=== PATIENT | female | born 1940 | race Caucasian/White ===

== ENCOUNTER 2017-08-20 16:41 | Inpatient (IN) | payer OTHER ==
[~2017-08-20] VITALS: Ht 175.3 cm; Wt 62.6 kg
[~2017-08-20 16:41] MED LIST: ASCA500; ASPEC81; CMD3; CMP10; ERGO1CAP35; FOLIC ACID; FRRS300; METR-163; MULT-506; PANT40TA; POTA20TA16; RMR15; THIAMINE; [UNRECOGNIZED DRUG - OTHER]
[2017-08-20] MEDS ORDERED: ONDANSETRON INJ 2 MG/ML 2 ML VIAL IV STA ×2 (16:54→18:53)
[2017-08-20] MEDS ORDERED: DIPHTHERIA/TETANUS/PERTUSSIS 0.5 ML SYR/VIAL IM. ONE (17:00)
--- NOTE | 2017-08-20 17:00 | EMERGENCY ROOM VISIT NOTE ---
History Report prepared by Josh: Matias Flores Under the Supervision of: Dr. Doron Jimenez D.O. 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 The patient states that she fell suddenly onto her left side just prior to arrival. Her family reports that they found her on the floor today and brought her in to the ED. She denies any loss of consciousness or head injury. She complains of left wrist pain, left hip pain, and left leg pain that worsens with movement. She denies any headache, neck pain, abdominal pain, chest pain, and SOB. Her last dietary intake was at 5 hours ago and denies use of any blood thinners. The patient has a history of DVT, Celiac disease, and tobacco use. Per her children, the patient has increasing bouts of confusion. 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 Review of Systems See HPI for pertinent positives & negatives. A total of 10 systems reviewed and were otherwise negative. Past Medical & Surgical Medical Problems: (1) Celiac disease (2) DVT (deep venous thrombosis) (3) Multiple fractures Family History No pertinent family history stated. Social History Smoking Status: Current Every Day Smoker Marital Status: Housing Status: lives with family Occupation Status: retired Current/Historical Medications Scheduled Aspirin (Aspirin), 325 MG PO DAILY Atorvastatin (Lipitor), 20 MG PO HS Cholecalciferol (Vitamin D3), 1,000 INTER.UNIT PO DAILY Diphenhydramine Hcl (Diphenhydramine Hcl), 25 MG PO HS Folic Acid (Folic Acid), 800 MCG PO DAILY Mirtazapine (Remeron), 30 MG PO HS Multiple Vitamins W/ Minerals (Centrum Silver 50+Women), 1 TAB PO DAILY Omeprazole (Prilosec), 40 MG PO BID Potassium Ext Rel (Klor-Con), 20 MEQ PO DAILY Scheduled PRN Ipratropium-Albuterol (Combivent Respimat), 1 PUFF INH QID PRN for Shortness of Breath Allergies Coded Allergies: Penicillins (Verified Allergy, Mild, 10/06/09) Lactose (Verified Allergy, Unknown, 10/06/09) Physical Exam Vital Signs Date Time Temp Pulse Resp B/P (MAP) Pulse Ox O2 Delivery O2 Flow Rate FiO2 08/20/17 20:18 93 18 123/65 95 08/20/17 17:15 101 08/20/17 17:15 36.6 101 20 119/63 95 Room Air Physical Exam GENERAL: Patient is awake, alert, anxious, uncomfortable, and appears to be in moderate pain. EYES: The conjunctivae are clear. The pupils are round and reactive. EARS, NOSE, MOUTH AND THROAT: The nose is without any evidence of any deformity. Mucous membranes are dry tongue is midline. Small area of bruising on right forehead. NECK: The neck is nontender and supple. RESPIRATORY: Diminished lung sounds throughout, with scattered rhonchi, no tachypnea or conversational dyspnea appreciated CARDIOVASCULAR: Regular rate and rhythm noted there no murmurs rubs or gallops normal S1 normal S2 GASTROINTESTINAL: The abdomen is soft. Bowel sounds are present in all quadrants. Abdomen is nontender BACK: No midline tenderness or or step-off noted range of motion in flexion extension as well as rotation no signs of muscle spasm noted MUSCULOSKELETAL/EXTREMITIES: Deformity and ecchymosis of right wrist. No tenderness of right elbow. Tenderness and ecchymosis of anterior right lower leg with abrasion of right lower leg. Pain with range of motion of right hip. No shortening was noted. SKIN: There is no obvious evidence of any rash. There are no petechiae, pallor or cyanosis noted. NEUROLOGIC: Patient is awake awake alert and oriented x3 Medical Decision & Procedures ER Provider Diagnostic Interpretation: Radiology results as stated below per my review and radiologist interpretation: CERVICAL SPINE W/O FINDINGS: Middle Stitcher topogram: Unremarkable. Normal cervical lordosis. Mild vertebral body height loss of C5 and C6 likely degenerative in etiology. No acute fracture or subluxation. Multilevel degenerative changes with disc osteophyte complexes noted at C4-5 through 7. Bony spurring posteriorly at these levels. No significant osseous neural foraminal or spinal canal narrowing. Degenerative changes also noted at the atlantodental articulation. Limited intracranial evaluation within normal limits. Paraspinal soft tissues remarkable for atherosclerosis. Emphysema at the lung apices with a solid 6 mm nodule (series 4 image 76). IMPRESSION: 1. No acute osseous injury of the cervical spine. 2. Multilevel degenerative changes in the mid to lower cervical spine. 3. 6 mm solid nodule at the right apex. Follow-up per Amanda Society 2017 recommendations below. The report will be called/faxed according to standard departmental protocol. Please refer to below summary of Fleischner Society 2017 recommendations for follow-up of incidental CT nodules (Robert Trores et al. Guidelines for management of incidental pulmonary nodules detected on CT images: From the Fleischner Society 2017. Radiology 2017; 284: 228-243.) SOLID NODULES Single nodule; size < 6 mm * Low risk patients: No routine follow-up * High risk patients: Optional CT at 12 months Single nodule; size 6-8 mm * Low risk patients: CT at 6-12 months, then consider CT at 18-24 months * High risk patients: CT at 6-12 months, then at 18-24 months Single nodule; size > 8 mm * Either low or high risk patients: Considered CT at 3 months, PET/CT, or tissue sampling Multiple nodules; size < 6 mm * Low risk patients: No routine follow up * High risk patients: Optional CT at 12 months Multiple nodules; size 6-8 mm * Low risk patients: CT at 3-6 months, then consider CT at 18-24 months * High risk patients: CT at 3-6 months, then at 18-24 months Multiple nodules; size > 8 mm * Low risk patients: CT at 3-6 months, then consider at 18-24 months * High risk patients: CT at 3-6 months, then at 18-24 months Note: These guidelines apply to incidental nodules. These guidelines do not apply to patients younger than 35 years, immunocompromised patients, or patients with cancer. * Low risk patients: Minimal or absent history of smoking and/or other known risk factors * High risk patients: History of smoking, exposure to other carcinogens, emphysema, fibrosis, upper lobe location, family history of lung cancer, etc. * If a nodule up to 8 mm is partly solid or is ground glass, further follow-up is required after 24 months to exclude possible slow growing adenocarcinoma. SUBSOLID NODULES Single ground-glass nodule * Nodule size < 6 mm: No routine follow-up * Nodule size > or = 6 mm: CT at 6-12 months to confirm persistence, then CT every 2 years until 5 years Single part-solid nodule * Nodule size < 6 mm: No routine follow-up * Nodules size > or = 6 mm: CT at 3-6 months to confirm persistence. If unchanged and solid component remains < 6 mm, annual CT should be performed for 5 years Multiple nodules * Nodule size < 6 mm: CT at 3-6 months. If stable, consider CT at 2 and 4 years. * Nodules size > or = 6 mm: CT at 3-6 months. Subsequent management based on the most suspicious nodule(s) Electronically signed by: Luis Fernando Bess M.D. 08/20/2017 6:01 PM Dictated Date/Time: 08/20/2017 5:57 PM CHEST 2 VIEWS ROUTINE CLINICAL HISTORY: 77 years-old Female presenting with fall. TECHNIQUE: PA and lateral views of the chest were obtained. COMPARISON: 11/07/2015. FINDINGS: Scoliotic curvature of the spine limits evaluation. Atherosclerosis of aortic arch. Cardiac silhouette may be top normal in size or mildly enlarged. Nodular opacities in the left lung again noted. No large pleural effusion or pneumothorax effusion. Osteopenia suspected. Degenerative changes and scoliotic curvature of the spine. Degenerative changes of the acromioclavicular joints. Hiatal hernia suspected. IMPRESSION: 1. Persistent nodular opacities in the left lung. 2. Examination limited by scoliotic curvature resulting in malpositioning. Otherwise no evidence of acute cardiopulmonary disease. Electronically signed by: Luis Fernando Bess M.D. 08/20/2017 6:52 PM Dictated Date/Time: 08/20/2017 6:50 PM R TIBIA/FIBULA 2 VIEWS ROUTINE, R FEMUR 2 VIEWS ROUTINE FINDINGS: Right femur: Right hip joint congruent. Knee joint congruent. Osteopenia may be present. No acute fracture or malalignment. Degenerative changes of the knee including chondrocalcinosis. No knee joint effusion. Right lower leg: A few lucent lesions suggested in the medullary cavity of the tibia and fibula, indeterminate. No acute fracture or malalignment. Ankle mortise intact. Osteopenia suspected. IMPRESSION: 1. No acute osseous injury of the right femur right lower leg. 2. Questionable lucent lesions in the medullary cavity of the tibia and fibula. This raises concern for possible multiple myeloma, although the presence of osteopenia may be resulting in a heterogeneous appearance of bone marrow. Electronically signed by: Luis Fernando Bess M.D. 08/20/2017 6:54 PM Dictated Date/Time: 08/20/2017 6:52 PM HEAD WITHOUT CONTRAST (CT) CLINICAL HISTORY: 77 years-old Female with fakll. Acute head injury status post fall TECHNIQUE: Multiple axial CT images of the head were obtained without contrast. A dose lowering technique was utilized adhering to the principles of ALARA. CT DOSE: 990.25 mGy.cm COMPARISON: CT head 04/13/2006. FINDINGS: No acute intracranial hemorrhage, midline shift, intracranial mass, hydrocephalus, territorial ischemia or abnormal extra-axial collection. Mild to moderate atrophy with ex vacuo ventriculomegaly. Senescent calcifications of the left lentiform nucleus. Ill-defined areas of low-attenuation within the subcortical and periventricular white matter compatible with chronic microvascular ischemic changes, progressed from comparison. The calvarium is intact. The paranasal sinuses, mastoid air cells, and middle ear cavities are clear. IMPRESSION: 1. No acute intracranial abnormality or calvarial fracture. 2. Atrophy with chronic microvascular ischemic changes, progressed from comparison study 04/13/2006. The above report was generated using voice recognition software. It may contain grammatical, syntax or spelling errors. Electronically signed by: Neri Leo M.D. 08/20/2017 5:59 PM Dictated Date/Time: 08/20/2017 5:55 PM PELVIS 1 OR 2 VIEW ROUTINE CLINICAL HISTORY: 77 years-old Female presenting with fall. TECHNIQUE: Single frontal view of the pelvis was obtained. COMPARISON: None. FINDINGS: Osteopenia suspected. Pubic symphysis and sacral leg joints congruent. Hip joints congruent. No femoral neck fracture. Osseous irregularity of the superior right pubic ramus noted. Bony pelvis otherwise within normal limits. Degenerative changes of the lumbar spine. Marked stool burden. IMPRESSION: Osteopenia with possible fracture of the superior right pubic ramus. Electronically signed by: Luis Fernando Bess M.D. 08/20/2017 6:50 PM Dictated Date/Time: 08/20/2017 6:49 PM R TIBIA/FIBULA 2 VIEWS ROUTINE, R FEMUR 2 VIEWS ROUTINE CLINICAL HISTORY: 77 years-old Female presenting with fall. TECHNIQUE: Frontal and lateral views of the right femur and right lower leg were obtained. COMPARISON: None. FINDINGS: Right femur: Right hip joint congruent. Knee joint congruent. Osteopenia may be present. No acute fracture or malalignment. Degenerative changes of the knee including chondrocalcinosis. No knee joint effusion. Right lower leg: A few lucent lesions suggested in the medullary cavity of the tibia and fibula, indeterminate. No acute fracture or malalignment. Ankle mortise intact. Osteopenia suspected. IMPRESSION: 1. No acute osseous injury of the right femur right lower leg. 2. Questionable lucent lesions in the medullary cavity of the tibia and fibula. This raises concern for possible multiple myeloma, although the presence of osteopenia may be resulting in a heterogeneous appearance of bone marrow. Electronically signed by: Luis Fernando Bess M.D. 08/20/2017 6:54 PM Dictated Date/Time: 08/20/2017 6:52 PM R WRIST MIN 3 VIEWS ROUTINE CLINICAL HISTORY: 77 years-old Female presenting with fall. TECHNIQUE: Frontal, oblique, and lateral views of the right wrist were obtained. COMPARISON: None. FINDINGS: Mildly displaced transversely oriented fracture of the distal radial metaphysis without significant angulation. There is a millimeters of dorsal displacement of the distal fracture fragment and carpus. Radiocarpal articulations preserved, evidence of an extra-articular fracture. The ulnar styloid is not clearly visible, possibly fractured. The distal radial ulnar joints is not well assessed. Underlying osteopenia suspected. Diffuse soft tissue swelling. No subcutaneous gas. IMPRESSION: Displaced distal radial metaphyseal fracture without significant angulation. Suspected underlying osteopenia. Electronically signed by: Luis Fernando Bess M.D. 08/20/2017 6:56 PM Dictated Date/Time: 08/20/2017 6:54 PM Laboratory Results 08/20/17 17:25 Red Blood Count 4.57, Mean Corpuscular Volume 96.3, Mean Corpuscular Hemoglobin 32.6, Mean Corpuscular Hemoglobin Concent 33.9, Mean Platelet Volume 10.6, Neutrophils (%) (Auto) 86.8, Lymphocytes (%) (Auto) 4.7, Monocytes (%) (Auto) 7.8, Eosinophils (%) (Auto) 0.1, Basophils (%) (Auto) 0.2, Neutrophils # (Auto) 12.34, Lymphocytes # (Auto) 0.67, Monocytes # (Auto) 1.11, Eosinophils # (Auto) 0.01, Basophils # (Auto) 0.03 08/20/17 17:05 Test 08/20/17 17:05 08/20/17 17:25 08/20/17 19:41 Anion Gap 5.0 mmol/L (3-11) Est Creatinine Clear Calc Drug Dose 71.3 ml/min Estimated GFR () 100.3 Estimated GFR (Non- 86.5 BUN/Creatinine Ratio 22.2 (10-20) Calcium Level 9.5 mg/dl (8.5-10.1) Total Bilirubin 0.7 mg/dl (0.2-1) Direct Bilirubin 0.1 mg/dl (0-0.2) Aspartate Amino Transf (AST/SGOT) 17 U/L (15-37) Alanine Aminotransferase (ALT/SGPT) 20 U/L (12-78) Alkaline Phosphatase 53 U/L (45-117) Troponin I 0.640 ng/ml (0-0.045) Total Protein 7.1 gm/dl (6.4-8.2) Albumin 4.2 gm/dl (3.4-5.0) Lipase 234 U/L (73-393) White Blood Count 14.22 K/uL (4.8-10.8) Red Blood Count 4.57 M/uL (4.2-5.4) Hemoglobin 14.9 g/dL (12.0-16.0) Hematocrit 44.0 % (37-47) Mean Corpuscular Volume 96.3 fL (80-100) Mean Corpuscular Hemoglobin 32.6 pg (25-34) Mean Corpuscular Hemoglobin Concent 33.9 g/dl (32-36) Platelet Count 188 K/uL (130-400) Mean Platelet Volume 10.6 fL (7.4-10.4) Neutrophils (%) (Auto) 86.8 % Lymphocytes (%) (Auto) 4.7 % Monocytes (%) (Auto) 7.8 % Eosinophils (%) (Auto) 0.1 % Basophils (%) (Auto) 0.2 % Neutrophils # (Auto) 12.34 K/uL (1.4-6.5) Lymphocytes # (Auto) 0.67 K/uL (1.2-3.4) Monocytes # (Auto) 1.11 K/uL (0.11-0.59) Eosinophils # (Auto) 0.01 K/uL (0-0.5) Basophils # (Auto) 0.03 K/uL (0-0.2) RDW Standard Deviation 44.5 fL (36.4-46.3) RDW Coefficient of Variation 12.9 % (11.5-14.5) Immature Granulocyte % (Auto) 0.4 % Immature Granulocyte # (Auto) 0.06 K/uL (0.00-0.02) Prothrombin Time 10.2 SECONDS (9.0-12.0) Prothromb Time International Ratio 1.0 (0.9-1.1) Activated Partial Thromboplast Time 25.2 SECONDS (21.0-31.0) Partial Thromboplastin Ratio 1.0 Laboratory results per my review. Medications Administered Medications (Trade) Dose Ordered Sig/Mari Route Start Time Stop Time Status Last Admin Dose Admin Ondansetron HCl (Zofran Inj) 4 mg NOW STAT IV 08/20/17 16:54 08/20/17 16:57 DC 08/20/17 17:17 4 MG Diphtheria/ Pertussis/Tetanus Vacc (Adacel Inj) 0.5 ml ONCE ONCE IM. 08/20/17 17:00 08/20/17 17:01 DC 08/20/17 17:18 0.5 ML Morphine Sulfate (MoRPHine SULFATE INJ) 4 mg Q15M PRN IV 08/20/17 17:00 09/03/17 16:59 08/20/17 18:06 4 MG Ondansetron HCl (Zofran Inj) 4 mg NOW STAT IV 08/20/17 18:53 08/20/17 18:54 DC 08/20/17 19:01 4 MG ECG Indication: other (fall) Rate (beats per minute): 101 Rhythm: sinus tachycardia Findings: no ectopy, other (Poor r wave progression noted) Comparison ECG Date: 04/14/2006 Change: Poor R wave is new compared 04/14/2006 ED Course 164: The patient was evaluated in room A9. A complete history and physical examination were performed. 165: Zofran Inj 4 mg IV 1700: Morphine Sulfate Inj 4 mg IV, Adacel Inj .5 ml IM. 185: Zofran Inj 4mg IV. 1900: I discussed the patient's case with Dr. Falcon of [facility]. The patient will be evaluated for further management. 1908: I spoke with Dr. Hart of Orthopedics. He will look at the films and will come here to reduce if he feels it is necessary. 1922: Upon reevaluation, the patient is doing well. I discussed results and treatment plan with the patient. She verbalizes agreement and understanding. I spoke with Dr. Falcon of the [facility]. The patient will be evaluated for further management and care. Medical Decision Differential diagnosis: Etiologies such as fracture, dislocation, intra-abdominal, pneumothorax, intrathoracic , intracranial, neurologic, as well as other traumatic pathologies were entertained. fracture, dislocation, intra-abdominal, pneumothorax, pulmonary contusion, hemothorax, intracranial, neurologic,as well as others were deemed relatively unlikely. Nursing notes reviewed. Additional history is obtained from the patient's family members. The patient is a 77-year-old female who presented to the emergency department for an evaluation after fall. The patient was found on the floor by her family members. She had significant injury to the right upper extremity and also had pain with her right hip and was unable to stand. The patient had some degree of confusion and the family member state that this has been an ongoing problem for her. The patient was found to have a fracture of her right wrist as well as a pubic ramus fracture. The patient also had EKG changes of unknown chronicity. The patient was treated with IV pain medication IV antiemetics. On subsequent reevaluation she was significantly improved. I discussed her case with the on- call [facility] orthopedic physician. At this time I feel she may require reduction but also may require surgical intervention. She has a significant history of COPD and at this time I'm unsure if we can do a closed reduction with sedation in the emergency department. She was placed in a splint. At this time of also discussed her case with the on-call [facility] hospitalist group. They've agreed to evaluate the patient in the emergency department for further management and disposition. Medication Reconcilliation Current Medication List: was personally reviewed by me Blood Pressure Screening Patient's blood pressure: Normal blood pressure Blood pressure disposition: Did not require urgent referral Consults Time Called: 1855 Consulting Physician: Dr. Falcon - [facility] Returned Call: [address] Falcon of [facility]. The patient will be evaluated for further management and care. Additional Consults: Time Called: 1908 Consulted Physician: Dr. Hart - Orthopedics Returned Call: 1911 Additional Comments: I spoke with Dr. Hart of Orthopedics. He will look at the films and will come here to reduce if he feels it is necessary. Impression Primary Impression: Fall Additional Impressions: Colles' fracture of right radius Pelvic fracture Contusion of right leg Abnormal EKG Elevated troponin Scribe Attestation The scribe's documentation has been prepared under my direction and personally reviewed by me in its entirety. I confirm that the note above accurately reflects all work, treatment, procedures, and medical decision making performed by me. Departure Information Dispostion Being Evaluated By Hospitalist Referrals Mercedes Echevarria (PCP) Patient Instructions My [facility] Problem Qualifiers Primary Impression: Fall Encounter type: initial encounter Qualified Codes: W19.XXXA - Unspecified fall, initial encounter Additional Impressions: Colles' fracture of right radius Encounter type: initial encounter Fracture type: closed Qualified Codes: S52.531A - Colles' fracture of right radius, initial encounter for closed fracture Pelvic fracture Encounter type: initial encounter Pelvic bone location: pubis Sublocation of pubis: superior rim Fracture type: closed Laterality: right Qualified Codes: S32.511A - Fracture of superior rim of right pubis, initial encounter for closed fracture Contusion of right leg Encounter type: initial encounter Qualified Codes: S80.11XA - Contusion of right lower leg, initial encounter
[2017-08-20] MEDS: MoRPHine SULFATE 4 MG/ML 1 ML CARP\\VIAL IV PRN ×3 (17:17→21:44)
[2017-08-20] MEDS ORDERED: IPRA1AER2 INH (17:34)
[2017-08-20] MEDS ORDERED: ASPI325T45 PO (17:34)
[2017-08-20] MEDS ORDERED: DIPH25TA33 PO (17:34)
[2017-08-20] MEDS ORDERED: OMEP40CA41 PO (17:34)
[2017-08-20] MEDS ORDERED: ATOR-22 PO (17:34)
[2017-08-20] MEDS ORDERED: FOLI800T PO (17:34)
[2017-08-20] MEDS ORDERED: CHOL1000 PO (17:34)
[2017-08-20] MEDS ORDERED: MULT-1092 PO (17:34)
[2017-08-20] MEDS ORDERED: POTA20TA16 PO (17:34)
[2017-08-20] MEDS ORDERED: MIRT30TA3 PO (17:34)
--- NOTE | 2017-08-20 18:01 | DIAGNOSTIC IMAGING REPORT ---
HEAD WITHOUT CONTRAST (CT) CLINICAL HISTORY: 77 years-old Female with fakll. Acute head injury status post fall TECHNIQUE: Multiple axial CT images of the head were obtained without contrast. A dose lowering technique was utilized adhering to the principles of ALARA. CT DOSE: 990.25 mGy.cm COMPARISON: CT head 04/13/2006. FINDINGS: No acute intracranial hemorrhage, midline shift, intracranial mass, hydrocephalus, territorial ischemia or abnormal extra-axial collection. Mild to moderate atrophy with ex vacuo ventriculomegaly. Senescent calcifications of the left lentiform nucleus. Ill-defined areas of low-attenuation within the subcortical and periventricular white matter compatible with chronic microvascular ischemic changes, progressed from comparison. The calvarium is intact. The paranasal sinuses, mastoid air cells, and middle ear cavities are clear. IMPRESSION: 1. No acute intracranial abnormality or calvarial fracture. 2. Atrophy with chronic microvascular ischemic changes, progressed from comparison study 04/13/2006. The above report was generated using voice recognition software. It may contain grammatical, syntax or spelling errors. Electronically signed by: Neri Leo M.D. 08/20/2017 5:59 PM Dictated Date/Time: 08/20/2017 5:55 PM
--- NOTE | 2017-08-20 18:02 | DIAGNOSTIC IMAGING REPORT ---
CERVICAL SPINE W/O CLINICAL HISTORY: 77 years-old Female presenting with fall. TECHNIQUE: Multidetector CT of the cervical spine was performed without the use of intravenous contrast. IV contrast: None. A dose lowering technique was used consistent with the principles of ALARA (as low as reasonably achievable). COMPARISON: None. CT DOSE (mGy.cm): The estimated cumulative dose is 990.25. FINDINGS: Manufacturing Lead topogram: Unremarkable. Normal cervical lordosis. Mild vertebral body height loss of C5 and C6 likely degenerative in etiology. No acute fracture or subluxation. Multilevel degenerative changes with disc osteophyte complexes noted at C4-5 through 7. Bony spurring posteriorly at these levels. No significant osseous neural foraminal or spinal canal narrowing. Degenerative changes also noted at the atlantodental articulation. Limited intracranial evaluation within normal limits. Paraspinal soft tissues remarkable for atherosclerosis. Emphysema at the lung apices with a solid 6 mm nodule (series 4 image 76). IMPRESSION: 1. No acute osseous injury of the cervical spine. 2. Multilevel degenerative changes in the mid to lower cervical spine. 3. 6 mm solid nodule at the right apex. Follow-up per Amanda Society 2017 recommendations below. The report will be called/faxed according to standard departmental protocol. Please refer to below summary of Fleischner Society 2017 recommendations for follow-up of incidental CT nodules (H Melissa et al. Guidelines for management of incidental pulmonary nodules detected on CT images: From the Fleischner Society 2017. Radiology 2017; 284: 228-243.) SOLID NODULES Single nodule; size < 6 mm * Low risk patients: No routine follow-up * High risk patients: Optional CT at 12 months Single nodule; size 6-8 mm * Low risk patients: CT at 6-12 months, then consider CT at 18-24 months * High risk patients: CT at 6-12 months, then at 18-24 months Single nodule; size > 8 mm * Either low or high risk patients: Considered CT at 3 months, PET/CT, or tissue sampling Multiple nodules; size < 6 mm * Low risk patients: No routine follow up * High risk patients: Optional CT at 12 months Multiple nodules; size 6-8 mm * Low risk patients: CT at 3-6 months, then consider CT at 18-24 months * High risk patients: CT at 3-6 months, then at 18-24 months Multiple nodules; size > 8 mm * Low risk patients: CT at 3-6 months, then consider at 18-24 months * High risk patients: CT at 3-6 months, then at 18-24 months Note: These guidelines apply to incidental nodules. These guidelines do not apply to patients younger than 35 years, immunocompromised patients, or patients with cancer. * Low risk patients: Minimal or absent history of smoking and/or other known risk factors * High risk patients: History of smoking, exposure to other carcinogens, emphysema, fibrosis, upper lobe location, family history of lung cancer, etc. * If a nodule up to 8 mm is partly solid or is ground glass, further follow-up is required after 24 months to exclude possible slow growing adenocarcinoma. SUBSOLID NODULES Single ground-glass nodule * Nodule size < 6 mm: No routine follow-up * Nodule size > or = 6 mm: CT at 6-12 months to confirm persistence, then CT every 2 years until 5 years Single part-solid nodule * Nodule size < 6 mm: No routine follow-up * Nodules size > or = 6 mm: CT at 3-6 months to confirm persistence. If unchanged and solid component remains < 6 mm, annual CT should be performed for 5 years Multiple nodules * Nodule size < 6 mm: CT at 3-6 months. If stable, consider CT at 2 and 4 years. * Nodules size > or = 6 mm: CT at 3-6 months. Subsequent management based on the most suspicious nodule(s) Electronically signed by: Luis Fernando Bess M.D. 08/20/2017 6:01 PM Dictated Date/Time: 08/20/2017 5:57 PM
[2017-08-20 18:03] LABS: BUN/CREATININE RATIO 22.2 (10-20); CALCIUM 9.5 mg/dl (8.5-10.1); CREATININE 0.63 mg/dl (0.60-1.20)
[2017-08-20 18:21] LABS: BASO % 0.2 %; BASO ABS # 0.03 K/uL (0-0.2); COMPLETE YES; EOS % 0.1 %; IG% 0.4 %; LYMPH % 4.7 %; LYMPH ABS # 0.67 K/uL (1.2-3.4); MEAN CELL VOLUME 96.3 fL (80-100); MEAN CORPUSCULAR HEMOGLOBIN 32.6 pg (25-34); MEAN CORPUSCULAR HGB CONC 33.9 g/dl (32-36); MEAN PLATELET VOLUME 10.6 fL (7.4-10.4); MONO % 7.8 %; NEUT % 86.8 %; PLATELET COUNT 188 K/uL (130-400); RED BLOOD COUNT 4.57 M/uL (4.2-5.4); WHITE BLOOD COUNT 14.22 K/uL (4.8-10.8)
[2017-08-20 18:31] LABS: PROTHROMBIN TIME (PATIENT) 10.2 SECONDS (9.0-12.0)
[2017-08-20 18:32] LABS: POTASSIUM 3.5 mmol/L (3.5-5.1)
--- NOTE | 2017-08-20 18:51 | DIAGNOSTIC IMAGING REPORT ---
PELVIS 1 OR 2 VIEW ROUTINE CLINICAL HISTORY: 77 years-old Female presenting with fall. TECHNIQUE: Single frontal view of the pelvis was obtained. COMPARISON: None. FINDINGS: Osteopenia suspected. Pubic symphysis and sacral leg joints congruent. Hip joints congruent. No femoral neck fracture. Osseous irregularity of the superior right pubic ramus noted. Bony pelvis otherwise within normal limits. Degenerative changes of the lumbar spine. Marked stool burden. IMPRESSION: Osteopenia with possible fracture of the superior right pubic ramus. Electronically signed by: Luis Fernando Bess M.D. 08/20/2017 6:50 PM Dictated Date/Time: 08/20/2017 6:49 PM
--- NOTE | 2017-08-20 18:53 | DIAGNOSTIC IMAGING REPORT ---
CHEST 2 VIEWS ROUTINE CLINICAL HISTORY: 77 years-old Female presenting with fall. TECHNIQUE: PA and lateral views of the chest were obtained. COMPARISON: 11/07/2015. FINDINGS: Scoliotic curvature of the spine limits evaluation. Atherosclerosis of aortic arch. Cardiac silhouette may be top normal in size or mildly enlarged. Nodular opacities in the left lung again noted. No large pleural effusion or pneumothorax effusion. Osteopenia suspected. Degenerative changes and scoliotic curvature of the spine. Degenerative changes of the acromioclavicular joints. Hiatal hernia suspected. IMPRESSION: 1. Persistent nodular opacities in the left lung. 2. Examination limited by scoliotic curvature resulting in malpositioning. Otherwise no evidence of acute cardiopulmonary disease. Electronically signed by: Luis Fernando Bess M.D. 08/20/2017 6:52 PM Dictated Date/Time: 08/20/2017 6:50 PM
--- NOTE | 2017-08-20 18:55 | DIAGNOSTIC IMAGING REPORT ---
R TIBIA/FIBULA 2 VIEWS ROUTINE, R FEMUR 2 VIEWS ROUTINE CLINICAL HISTORY: 77 years-old Female presenting with fall. TECHNIQUE: Frontal and lateral views of the right femur and right lower leg were obtained. COMPARISON: None. FINDINGS: Right femur: Right hip joint congruent. Knee joint congruent. Osteopenia may be present. No acute fracture or malalignment. Degenerative changes of the knee including chondrocalcinosis. No knee joint effusion. Right lower leg: A few lucent lesions suggested in the medullary cavity of the tibia and fibula, indeterminate. No acute fracture or malalignment. Ankle mortise intact. Osteopenia suspected. IMPRESSION: 1. No acute osseous injury of the right femur right lower leg. 2. Questionable lucent lesions in the medullary cavity of the tibia and fibula. This raises concern for possible multiple myeloma, although the presence of osteopenia may be resulting in a heterogeneous appearance of bone marrow. Electronically signed by: Luis Fernando Bess M.D. 08/20/2017 6:54 PM Dictated Date/Time: 08/20/2017 6:52 PM
--- NOTE | 2017-08-20 18:57 | DIAGNOSTIC IMAGING REPORT ---
R WRIST MIN 3 VIEWS ROUTINE CLINICAL HISTORY: 77 years-old Female presenting with fall. TECHNIQUE: Frontal, oblique, and lateral views of the right wrist were obtained. COMPARISON: None. FINDINGS: Mildly displaced transversely oriented fracture of the distal radial metaphysis without significant angulation. There is a millimeters of dorsal displacement of the distal fracture fragment and carpus. Radiocarpal articulations preserved, evidence of an extra-articular fracture. The ulnar styloid is not clearly visible, possibly fractured. The distal radial ulnar joints is not well assessed. Underlying osteopenia suspected. Diffuse soft tissue swelling. No subcutaneous gas. IMPRESSION: Displaced distal radial metaphyseal fracture without significant angulation. Suspected underlying osteopenia. Electronically signed by: Luis Fernando Bess M.D. 08/20/2017 6:56 PM Dictated Date/Time: 08/20/2017 6:54 PM
--- NOTE | 2017-08-20 19:41 | History and Physical ---
History & Physical Date & Time of Service: Aug 20, 2017 at 19:34 Chief Complaint: Fall, Hip Pain, R Wrist Pain & Fx Primary Care Physician: Doron Lopez M.D. Past Medical/Surgical History Medical Problems: (1) Celiac disease Status: Chronic (2) DVT (deep venous thrombosis) Status: Resolved Social History Smoking Status: Current Every Day Smoker Occupational Status: retired Immunizations History of Influenza Vaccine: No History of Tetanus Vaccine?: WITHIN LAST 10 YEARS Tetanus Immunization Date: Apr 14, 2006 History of Pneumococcal: Yes Pneumococcal Date: Jun 18, 2005 History of Hepatitis B Vaccine: No Multi-Drug Resistant Organisms History of MDRO: No Allergies Coded Allergies: Penicillins (Verified Allergy, Mild, 10/06/09) Lactose (Verified Allergy, Unknown, 10/06/09) Home Medications Scheduled Aspirin (Aspirin), 325 MG PO DAILY Atorvastatin (Lipitor), 20 MG PO HS Cholecalciferol (Vitamin D3), 1,000 INTER.UNIT PO DAILY Diphenhydramine Hcl (Diphenhydramine Hcl), 25 MG PO HS Folic Acid (Folic Acid), 800 MCG PO DAILY Mirtazapine (Remeron), 30 MG PO HS Multiple Vitamins W/ Minerals (Centrum Silver 50+Women), 1 TAB PO DAILY Omeprazole (Prilosec), 40 MG PO BID Potassium Ext Rel (Klor-Con), 20 MEQ PO DAILY Scheduled PRN Ipratropium-Albuterol (Combivent Respimat), 1 PUFF INH QID PRN for Shortness of Breath Physical Exam Vital Signs Date Time Temp Pulse Resp B/P (MAP) Pulse Ox O2 Delivery O2 Flow Rate FiO2 08/20/17 17:15 101 08/20/17 17:15 36.6 101 20 119/63 95 Room Air Diagnostics Laboratory Results Results Past 24 Hours Test 08/20/17 17:05 08/20/17 17:25 Range/Units Sodium Level 138 136-145 mmol/L Potassium Level 3.5 3.5-5.1 mmol/L Chloride Level 102 98-107 mmol/L Carbon Dioxide Level 30 21-32 mmol/L Anion Gap 5.0 3-11 mmol/L Blood Urea Nitrogen 14 7-18 mg/dl Creatinine 0.63 0.60-1.20 mg/dl Est Creatinine Clear Calc Drug Dose 71.3 ml/min Estimated GFR () 100.3 Estimated GFR (Non- 86.5 BUN/Creatinine Ratio 22.2 10-20 Random Glucose 106 70-99 mg/dl Calcium Level 9.5 8.5-10.1 mg/dl Total Bilirubin 0.7 0.2-1 mg/dl Direct Bilirubin 0.1 0-0.2 mg/dl Aspartate Amino Transf (AST/SGOT) 17 15-37 U/L Alanine Aminotransferase (ALT/SGPT) 20 12-78 U/L Alkaline Phosphatase 53 45-117 U/L Troponin I 0.640 0-0.045 ng/ml Total Protein 7.1 6.4-8.2 gm/dl Albumin 4.2 3.4-5.0 gm/dl Lipase 234 73-393 U/L White Blood Count 14.22 4.8-10.8 K/uL Red Blood Count 4.57 4.2-5.4 M/uL Hemoglobin 14.9 12.0-16.0 g/dL Hematocrit 44.0 37-47 % Mean Corpuscular Volume 96.3 80-100 fL Mean Corpuscular Hemoglobin 32.6 25-34 pg Mean Corpuscular Hemoglobin Concent 33.9 32-36 g/dl Platelet Count 188 130-400 K/uL Mean Platelet Volume 10.6 7.4-10.4 fL Neutrophils (%) (Auto) 86.8 % Lymphocytes (%) (Auto) 4.7 % Monocytes (%) (Auto) 7.8 % Eosinophils (%) (Auto) 0.1 % Basophils (%) (Auto) 0.2 % Neutrophils # (Auto) 12.34 1.4-6.5 K/uL Lymphocytes # (Auto) 0.67 1.2-3.4 K/uL Monocytes # (Auto) 1.11 0.11-0.59 K/uL Eosinophils # (Auto) 0.01 0-0.5 K/uL Basophils # (Auto) 0.03 0-0.2 K/uL RDW Standard Deviation 44.5 36.4-46.3 fL RDW Coefficient of Variation 12.9 11.5-14.5 % Immature Granulocyte % (Auto) 0.4 % Immature Granulocyte # (Auto) 0.06 0.00-0.02 K/uL Prothrombin Time 10.2 9.0-12.0 SECONDS Prothromb Time International Ratio 1.0 0.9-1.1 Activated Partial Thromboplast Time 25.2 21.0-31.0 SECONDS Partial Thromboplastin Ratio 1.0 Diagnostic Radiology Pelvic XR: Osteopenia with possible fracture of the superior right pubic ramus. XR wrist: Displaced distal radial metaphyseal fracture without significant angulation. Suspected underlying osteopenia. Impression Level of Care Telemetry Resuscitation Status FULL RESUSCITATION VTE Prophylaxis Given or contraindicated: SCD's
[2017-08-20] MEDS ORDERED: ALUMINUM/MAGNESIUM/SIMETH (MAALOX MAX) 30 ML UDC PO PRN (19:45)
[2017-08-20] MEDS ORDERED: MAGNESIUM HYDROXIDE SUSP 30 ML UDC PO PRN (19:45)
[2017-08-20] MEDS ORDERED: POLYETHYLENE (MIRALAX) 17 GM PACK PO PRN (19:45)
[2017-08-20] MEDS ORDERED: ONDANSETRON INJ 2 MG/ML 2 ML VIAL IV PRN (19:45)
[2017-08-20] MEDS ORDERED: ALBUT/IPRATROP 3MG/0.5MG NEB 3 ML VIAL INH PRN (20:00)
[2017-08-20] MEDS ORDERED: IV FLUIDS COMPLETED PRN (20:15)
--- NOTE | 2017-08-20 20:42 | History and Physical ---
History & Physical Date & Time of Service: Aug 20, 2017 at 20:14 Chief Complaint: Fall, Hip Pain, R Wrist Pain & Fx Primary Care Physician: Doron Lopez M.D. History of Present Illness Source: patient, family 77 y/o F Hx osteopenia, celiac disease, COPD, smoker, HPL. Pt presents after a fall on her L side. She denies any head trauma. A skeletal survey revealed a displaced radial fracture in addition to a superior pubic ramus fracture. Initial labs reveal an elevated troponin and there are some minimal anterior EKG changes. She denies CP, SOB, N/V, diaphoresis. She denies palpitations, lightheadedness or additional symptoms prior to her fall. Her family states that she has been exhibiting intermittent bouts of confusion which she denies. Past Medical/Surgical History Medical Problems: 1) Celiac disease 2) Osteopenia 3) COPD 4) HPL 5) Tobacco use 6) In 2005 the pt presented with stupor attributed to hyperammonemia. No cause was determined. She spent 1 month in the ICU at [facility]. Her course was complicated by a DVT. She eventually was transferred to a rehab facility and signed out AMA as they would not let her smoke. Family History Noncontributory Social History Smokes 1 pack QD Smoking Status: Current Every Day Smoker Marital Status: Occupational Status: retired Immunizations History of Influenza Vaccine: No History of Tetanus Vaccine?: WITHIN LAST 10 YEARS Tetanus Immunization Date: Apr 14, 2006 History of Pneumococcal: Yes Pneumococcal Date: Jun 18, 2005 History of Hepatitis B Vaccine: No Multi-Drug Resistant Organisms History of MDRO: No Allergies Coded Allergies: Penicillins (Verified Allergy, Mild, 10/06/09) Lactose (Verified Allergy, Unknown, 10/06/09) Home Medications Scheduled Aspirin (Aspirin), 325 MG PO DAILY Atorvastatin (Lipitor), 20 MG PO HS Cholecalciferol (Vitamin D3), 1,000 INTER.UNIT PO DAILY Diphenhydramine Hcl (Diphenhydramine Hcl), 25 MG PO HS Folic Acid (Folic Acid), 800 MCG PO DAILY Mirtazapine (Remeron), 30 MG PO HS Multiple Vitamins W/ Minerals (Centrum Silver 50+Women), 1 TAB PO DAILY Omeprazole (Prilosec), 40 MG PO BID Potassium Ext Rel (Klor-Con), 20 MEQ PO DAILY Scheduled PRN Ipratropium-Albuterol (Combivent Respimat), 1 PUFF INH QID PRN for Shortness of Breath Review of Systems Constitutional: No fever, No chills, No sweats Eyes: No worsening of vision ENT: No hearing loss, No nasal symptoms Respiratory: No cough, No sputum, No wheezing Cardiovascular: No chest pain, No orthopnea, No PND Abdomen: No pain, No nausea, No vomiting Musculoskeletal: + joint pain (Pain in arm and pelvis) Genitourinary - Female: No dysuria, No urinary frequency, No urinary urgency Neurologic: + balance problems, + problem reported (Bouts of confusion per family) Psychiatric: No depression symptoms Endocrine: No fatigue Hematologic / Lymphatic: No abnormal bleeding/bruising Integumentary: No rash Allergic / Immunologic: No environmental allergies Physical Exam Vital Signs Date Time Temp Pulse Resp B/P (MAP) Pulse Ox O2 Delivery O2 Flow Rate FiO2 08/20/17 17:15 101 08/20/17 17:15 36.6 101 20 119/63 95 Room Air General Appearance: WD/WN, no apparent distress, + pertinent finding ( Disheveled, elderly female - she is lethargic likely due to morphine administered in the ER) ENT: normal ENT inspection, hearing grossly normal, TMs normal Neck: supple, no adenopathy, no JVD Respiratory/Chest: + pertinent finding (R lung is clear with poor air movement - I cannot diascern any air movement in her L base) Cardiovascular: regular rate, rhythm, no edema, no gallop Abdomen/GI: normal bowel sounds, non tender, soft Back: normal inspection Extremities/Musculoskelatal: + pertinent finding (R arm is splinted 0 pain to palpation of R chest, R hip) Neurologic/Psych: open source developer II-XII nml as tested, no motor/sensory deficits, alert Skin: normal color, warm/dry Diagnostics Laboratory Results Results Past 24 Hours Test 08/20/17 17:05 08/20/17 17:25 08/20/17 19:41 Range/Units Sodium Level 138 136-145 mmol/L Potassium Level 3.5 3.5-5.1 mmol/L Chloride Level 102 98-107 mmol/L Carbon Dioxide Level 30 21-32 mmol/L Anion Gap 5.0 3-11 mmol/L Blood Urea Nitrogen 14 7-18 mg/dl Creatinine 0.63 0.60-1.20 mg/dl Est Creatinine Clear Calc Drug Dose 71.3 ml/min Estimated GFR () 100.3 Estimated GFR (Non- 86.5 BUN/Creatinine Ratio 22.2 10-20 Random Glucose 106 70-99 mg/dl Calcium Level 9.5 8.5-10.1 mg/dl Total Bilirubin 0.7 0.2-1 mg/dl Direct Bilirubin 0.1 0-0.2 mg/dl Aspartate Amino Transf (AST/SGOT) 17 15-37 U/L Alanine Aminotransferase (ALT/SGPT) 20 12-78 U/L Alkaline Phosphatase 53 45-117 U/L Troponin I 0.640 0-0.045 ng/ml Total Protein 7.1 6.4-8.2 gm/dl Albumin 4.2 3.4-5.0 gm/dl Lipase 234 73-393 U/L White Blood Count 14.22 4.8-10.8 K/uL Red Blood Count 4.57 4.2-5.4 M/uL Hemoglobin 14.9 12.0-16.0 g/dL Hematocrit 44.0 37-47 % Mean Corpuscular Volume 96.3 80-100 fL Mean Corpuscular Hemoglobin 32.6 25-34 pg Mean Corpuscular Hemoglobin Concent 33.9 32-36 g/dl Platelet Count 188 130-400 K/uL Mean Platelet Volume 10.6 7.4-10.4 fL Neutrophils (%) (Auto) 86.8 % Lymphocytes (%) (Auto) 4.7 % Monocytes (%) (Auto) 7.8 % Eosinophils (%) (Auto) 0.1 % Basophils (%) (Auto) 0.2 % Neutrophils # (Auto) 12.34 1.4-6.5 K/uL Lymphocytes # (Auto) 0.67 1.2-3.4 K/uL Monocytes # (Auto) 1.11 0.11-0.59 K/uL Eosinophils # (Auto) 0.01 0-0.5 K/uL Basophils # (Auto) 0.03 0-0.2 K/uL RDW Standard Deviation 44.5 36.4-46.3 fL RDW Coefficient of Variation 12.9 11.5-14.5 % Immature Granulocyte % (Auto) 0.4 % Immature Granulocyte # (Auto) 0.06 0.00-0.02 K/uL Prothrombin Time 10.2 9.0-12.0 SECONDS Prothromb Time International Ratio 1.0 0.9-1.1 Activated Partial Thromboplast Time 25.2 21.0-31.0 SECONDS Partial Thromboplastin Ratio 1.0 Diagnostic Radiology Wrist XR: Displaced distal radial metaphyseal fracture without significant angulation. Suspected underlying osteopenia. Pelvic XR: Osteopenia with possible fracture of the superior right pubic ramus. Impression Assessment and Plan 77 y/o F Hx osteopenia, celiac disease, COPD, smoker, HPL. Pt presents after a fall on her L side. She denies any head trauma. A skeletal survey revealed a displaced radial fracture in addition to a superior pubic ramus fracture. Initial labs reveal an elevated troponin and there are some minimal anterior EKG changes. She denies CP, SOB, N/V, diaphoresis. She denies palpitations, lightheadedness or additional symptoms prior to her fall. Her family states that she has been exhibiting intermittent bouts of confusion which she denies. 1) Fall - wrist and pelvic fractures - per ortho she will likely require surgery for her radial fracture. We cannot appropriately stratify her as she may have had an ischemic event today or earlier in the week. We will follow results of an echo and have requested a cardiology assessment. She will be kept NPO and placed on IVF to allow for surgery if cleared. She does not have a history fo CHF or related symptoms. 2) Elevated troponin - no associated symptoms - anterior T wv inversions on EKG - Placed on telemetry, serial enzymes ordered, cardiology consult requested. Cont Statin - she takes a daily aspirin which can be continued if cardiac ischemia is suspected. We have added a low-dose B avel to her regimen. 3) COPD - does not treat regularly - PRN duonebs provided - due to her abnromal lung exam, a CT chest is pending. 4) Tobacco use - she has no interest in cessation. 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 6) Celiac disease - gluten-free diet when appropriate Full code , SCDs Total time for this admit including review of labs, meds, records, EKG 0 discussion with pt, family and ER attending 45 min Pt will likely require rehab upon discharge Level of Care Telemetry Resuscitation Status FULL RESUSCITATION VTE Prophylaxis VTE Risk Assessment Done? Y/N: Yes Risk Level: High Given or contraindicated: SCD's
--- NOTE | 2017-08-20 20:43 | DIAGNOSTIC IMAGING REPORT ---
(CHEST) THORAX WITHOUT CLINICAL HISTORY: 77 years-old Female presenting with no air entry into L base. TECHNIQUE: Multidetector CT imaging of the chest was performed without the use of intravenous contrast. IV contrast: None. A dose lowering technique was used consistent with the principles of ALARA (as low as reasonably achievable). COMPARISON: 11/17/2015. CT DOSE (mGy.cm): The estimated cumulative dose is 222.31 mGy.cm. FINDINGS: Iso Coordinator topogram: Unremarkable. On soft tissue windows, normal thyroid and thoracic inlet. No axillary, supraclavicular, or mediastinal lymphadenopathy. Evaluation of the oriana limited without intravenous contrast. Atherosclerosis of the aorta. Normal heart size. It coronary artery and mitral annular calcification. No pericardial or pleural effusion. Few hypodensities in the liver indeterminate but likely hepatic cysts. Indeterminate 2.1 cm right adrenal gland nodule. Moderate hiatal hernia. Fluid noted throughout the mildly distended esophagus. On lung windows, chronic elevation of the left hemidiaphragm. Mild apical emphysema. Solid right apical nodule measures 6 mm (series 4 image 31). Previously this appeared less nodular and more consistent with apical scarring, which is also present solid 7 mm central nodule in the left upper lobe (series 4 image 122), unchanged. Minimal dependent changes at the left lung base likely atelectasis. Volume loss in the left lower lobe secondary to the moderate hilar hernia. Airways patent. On bone windows, slightly exaggerated thoracic kyphosis. Mild degenerative change. IMPRESSION: 1. Moderate hiatal hernia with left lower lobe atelectasis and chronic left hemidiaphragm elevation. The degree of atelectatic change may have slightly increased since 2016. This likely accounts for the clinical findings. 2. Moderate hiatal hernia with esophagus mildly dilated with fluid and debris. 3. Indeterminate 2.1 cm right adrenal nodule. This is not definitively characterized as a benign adenoma by density. Further evaluation is clinically indicated. Correlate with a history of underlying malignancy. 4. Stable solid 7 mm left upper lobe nodule, which is consistent with a benign etiology given its stability. 5. Solid right apical 6 mm nodule. Previously the right apical nodule appeared more consistent with apical scarring, which is still a possibility. Follow-up per Amanda Society 2017 recommendations below. The report will be called/faxed according to standard departmental protocol. Please refer to below summary of Fleischner Society 2017 recommendations for follow-up of incidental CT nodules (H Melissa et al. Guidelines for management of incidental pulmonary nodules detected on CT images: From the Fleischner Society 2017. Radiology 2017; 284: 228-243.) SOLID NODULES Single nodule; size < 6 mm * Low risk patients: No routine follow-up * High risk patients: Optional CT at 12 months Single nodule; size 6-8 mm * Low risk patients: CT at 6-12 months, then consider CT at 18-24 months * High risk patients: CT at 6-12 months, then at 18-24 months Single nodule; size > 8 mm * Either low or high risk patients: Considered CT at 3 months, PET/CT, or tissue sampling Multiple nodules; size < 6 mm * Low risk patients: No routine follow up * High risk patients: Optional CT at 12 months Multiple nodules; size 6-8 mm * Low risk patients: CT at 3-6 months, then consider CT at 18-24 months * High risk patients: CT at 3-6 months, then at 18-24 months Multiple nodules; size > 8 mm * Low risk patients: CT at 3-6 months, then consider at 18-24 months * High risk patients: CT at 3-6 months, then at 18-24 months Note: These guidelines apply to incidental nodules. These guidelines do not apply to patients younger than 35 years, immunocompromised patients, or patients with cancer. * Low risk patients: Minimal or absent history of smoking and/or other known risk factors * High risk patients: History of smoking, exposure to other carcinogens, emphysema, fibrosis, upper lobe location, family history of lung cancer, etc. * If a nodule up to 8 mm is partly solid or is ground glass, further follow-up is required after 24 months to exclude possible slow growing adenocarcinoma. SUBSOLID NODULES Single ground-glass nodule * Nodule size < 6 mm: No routine follow-up * Nodule size > or = 6 mm: CT at 6-12 months to confirm persistence, then CT every 2 years until 5 years Single part-solid nodule * Nodule size < 6 mm: No routine follow-up * Nodules size > or = 6 mm: CT at 3-6 months to confirm persistence. If unchanged and solid component remains < 6 mm, annual CT should be performed for 5 years Multiple nodules * Nodule size < 6 mm: CT at 3-6 months. If stable, consider CT at 2 and 4 years. * Nodules size > or = 6 mm: CT at 3-6 months. Subsequent management based on the most suspicious nodule(s) Electronically signed by: Luis Fernando Bess M.D. 08/20/2017 8:42 PM Dictated Date/Time: 08/20/2017 8:35 PM
[2017-08-20 20:52] VITALS: BP 114/71; PULSE 85; TEMP 36.8; O2SAT 92; Ht 175.3 cm; Wt 62.6 kg
[2017-08-20] MEDS: D5NSS + 20MEQ KCL 1,000 ML IV SCH (21:37)
[2017-08-20] MEDS: PANTOprazole SOD 40 MG TAB PO SCH (22:01)
[2017-08-20] MEDS: ATORVASTATIN 20 MG TAB PO SCH (22:01)
[2017-08-20] MEDS: METOPROLOL TARTRATE 25 MG TAB PO SCH (22:02)
[2017-08-20] MEDS: MIRTAZAPINE TAB 15 MG TAB PO SCH (22:03)
[2017-08-20] MEDS ORDERED: PNEUMOCOCCAL ADMINISTRATION CHARGE ONE (23:00)
[2017-08-20] MEDS ORDERED: PNEUMOCOCCAL POLYSACCHARIDES 25 MCG/0.5 ML VIAL/SYR IM. ONE (23:00)
[2017-08-20 23:30] VITALS: BP 102/66; PULSE 79; TEMP 36.5; O2SAT 98
[2017-08-20 23:59] VITALS: O2SAT 98
[2017-08-21] VITALS (9 sets, daily range): BP systolic 85–105; BP diastolic 37–68; PULSE 77–110; TEMP 36.5–37.3; O2SAT 91–96
[2017-08-21] MEDS: MoRPHine SULFATE 4 MG/ML 1 ML CARP\\VIAL IV PRN ×4 (01:24→23:31)
[2017-08-21 07:00] LABS: URINE APPEARANCE CLEAR (CLEAR); URINE BILIRUBIN NEG (NEG); URINE COLOR DK YELLOW; URINE EPITHELIAL CELL AUTO 0-5 /lpf (0-5); URINE NITRITE NEG (NEG); URINE PH 7.5 (4.5-7.5); URINE SPECIFIC GRAVITY 1.022 (1.000-1.030); UROBILINOGEN NEG (NEG)
[2017-08-21 07:19] LABS: MANUAL MICROSCOPIC REQUIRED? NO; REVIEW REQ? NO
[2017-08-21 07:20] LABS: SULFASALICYLIC ACID NEG (NEG)
[2017-08-21] MEDS: ACETAMINOPHEN 325 MG TAB PO PRN (07:20)
[2017-08-21] MEDS: D5NSS + 20MEQ KCL 1,000 ML IV SCH (07:20)
[2017-08-21 08:17] LABS: HEMATOCRIT 40.3 % (37-47); MEAN CELL VOLUME 97.8 fL (80-100); MEAN CORPUSCULAR HEMOGLOBIN 31.8 pg (25-34); MEAN CORPUSCULAR HGB CONC 32.5 g/dl (32-36); MEAN PLATELET VOLUME 10.4 fL (7.4-10.4); PLATELET COUNT 168 K/uL (130-400); RED BLOOD COUNT 4.12 M/uL (4.2-5.4); WHITE BLOOD COUNT 7.84 K/uL (4.8-10.8)
[2017-08-21] MEDS: METOPROLOL TARTRATE 25 MG TAB PO SCH ×2 (08:35→21:00)
[2017-08-21 08:50] LABS: BUN/CREATININE RATIO 26.7 (10-20); CALCIUM 8.5 mg/dl (8.5-10.1); CREATININE 0.58 mg/dl (0.60-1.20); MAGNESIUM 2.2 mg/dl (1.8-2.4); POTASSIUM 4.5 mmol/L (3.5-5.1)
[2017-08-21] MEDS: POTASSIUM CHLORIDE 20 MEQ TABCR PO SCH (09:00)
[2017-08-21] MEDS: PANTOprazole SOD 40 MG TAB PO SCH ×2 (09:00→21:12)
[2017-08-21] MEDS: FoLIC ACID TAB 400 MCG TAB PO SCH (09:00)
--- NOTE | 2017-08-21 09:45 | Cardiology Consultation ---
Cardiology Consultation Date of Consultation: Aug 21, 2017. Requesting Physician: Dr. Yap Attending Physician: Dr. Anderson Reason for Consultation: Elevated troponin Pt evaluation today including: conversation w/ patient, physical exam, chart review, lab review, review of studies, review of inpatient medication list, conversation w/ attending History of Present Illness Ms. Rodriguez is a 77-year-old female with no known cardiac history who presented to the ED yesterday after a fall that occurred just prior to arrival. She was found to have a right radial fracture and pelvic fracture as a result of the fall, and she will likely require surgical fixation of the radial fracture. Patient was also noted to have a mildly elevated troponin on arrival, which uday to a peak of 0.794 before trending back down. The patient is currently being seen in her room in 243. Her daughter is present in the room and helps to provide some of the history. The patient reports that she is not sure why she fell, but she denies loss of consciousness. She had no symptoms of chest pain, palpitations, lightheadedness, or shortness of breath leading up to the fall. The patient is generally not very active and does not get out of her home much. She is able to ambulate around her house and her daughter's house on her own without the use of a cane or a walker. When she is out shopping with her daughter, she typically uses a wheelchair due to fatigue with walking longer distances. She denies any complaints of chest pain or shortness of breath. She denies any history of palpitations, lightheadedness, dizziness, syncope, or presyncope. She denies orthopnea, PND, or edema. She denies abnormal bleeding such as melena, hematochezia, or hematuria. She denies cerebrovascular symptoms. Review of Systems: As noted in HPI. All other 10 point ROS reviewed and otherwise negative. Past Medical/Surgical History 1. COPD 2. Pulmonary nodule 3. Hypertension 4. Dyslipidemia 5. GERD/Callaway's esophagus 6. Prediabetes 7. Insomnia 8. Celiac disease with history of folate deficiency, vitamin D deficiency, osteoporosis, and anemia. She was hospitalized in 2005 with severe malnutrition requiring intubation, mechanical ventilation, CT placement, ect. She has been stable since the diagnosis and now that she is following a gluten free diet. 9. Hx of DVT in 2005 while hospitalized 10. S/P Cholecystectomy 11. S/P Tonsillectomy 12. S/P Tubal ligation Family History No family history of premature CAD. Social History Smoking Status: Current Every Day Smoker History of Alcohol Use: No She is a . She has 3 living children, and 1 child has . She has 2 grandchildren and 1 great grandchild. She smokes 1 ppd and has smoked since the age 15. She denies alcohol or illicit drug use. All Other Systems: Reviewed and Negative Allergies Coded Allergies: Penicillins (Verified Allergy, Mild, 10/06/09) Lactose (Verified Allergy, Unknown, 10/06/09) Medications Current Inpatient Medications Medications (Trade) Dose Ordered Sig/Mari Route Start Time Stop Time Status Last Admin Dose Admin Acetaminophen (Tylenol Tab) 650 mg Q4H PRN PO 08/20/17 19:45 09/19/17 19:44 08/21/17 07:20 650 MG Al Hydrox/Mg Hydrox/Simethicone (Maalox Max Susp) 15 ml Q4H PRN PO 08/20/17 19:45 09/19/17 19:44 Magnesium Hydroxide (Milk Of Magnesia Susp) 30 ml Q12H PRN PO 08/20/17 19:45 09/19/17 19:44 Ondansetron HCl (Zofran Inj) 4 mg Q6H PRN IV 08/20/17 19:45 09/19/17 19:44 Polyethylene (Miralax Powder Packet) 17 gm DAILY PRN PO 08/20/17 19:45 09/19/17 19:44 Morphine Sulfate (MoRPHine SULFATE INJ) 4 mg Q3H PRN IV 08/20/17 19:45 09/03/17 19:44 08/21/17 06:23 4 MG Potassium Chloride/Dextrose/ Sod Cl 1,000 ml @ 100 mls/hr Q10H IV 08/20/17 21:00 08/21/17 16:59 08/21/17 07:20 100 MLS/HR Atorvastatin Calcium (Lipitor Tab) 20 mg HS PO 08/20/17 21:00 09/19/17 20:59 08/20/17 22:01 20 MG Mirtazapine (Remeron Tab) 30 mg HS PO 08/20/17 21:00 09/19/17 20:59 08/20/17 22:03 30 MG Potassium Chloride (Klor-Con Tab) 20 meq DAILY PO 08/21/17 09:00 09/20/17 08:59 Diphenhydramine HCl (Benadryl Cap) 25 mg HS PO 08/20/17 21:00 09/19/17 20:59 08/20/17 22:01 25 MG Folic Acid (Folvite Tab) 800 mcg DAILY PO 08/21/17 09:00 09/20/17 08:59 Pantoprazole Sodium (Protonix Tab) 40 mg BID PO 08/20/17 21:00 09/19/17 20:59 08/20/17 22:01 40 MG Metoprolol Tartrate (Lopressor Tab) 12.5 mg BID PO 08/20/17 21:00 09/19/17 20:59 08/20/17 22:02 12.5 MG Albuterol/ Ipratropium (Duoneb) 3 ml Q6R PRN INH 08/20/17 20:00 09/19/17 19:59 Miscellaneous (Iv Fluids Completed) 1 ea PRN PRN N/A 08/20/17 20:15 08/20/18 20:14 Clindamycin Phosphate 54 ml @ 100 mls/hr PREOP IV 08/21/17 06:00 08/21/17 18:00 Physical Exam Vital Signs Past 12 Hours Date Time Temp Pulse Resp B/P (MAP) Pulse Ox O2 Delivery O2 Flow Rate FiO2 08/21/17 07:55 37.0 77 20 98/60 (73) 92 Nasal Cannula 3.0 08/21/17 04:00 96 Nasal Cannula 2.0 08/21/17 03:38 36.7 86 16 105/68 (80) 96 Nasal Cannula 2.0 08/20/17 23:59 98 Nasal Cannula 2.0 08/20/17 23:30 36.5 79 18 102/66 (78) 98 Nasal Cannula 2.0 08/20/17 20:52 36.8 85 20 114/71 92 Nasal Cannula 2.0 Constitutional: Somnolent, in no acute distress HEENT: Head is atraumatic and normocephalic. EOMs intact. Sclera anicteric. Face is symmetric. No perioral cyanosis. Mucous membranes moist. Neck: Supple, no appreciable JVD Pulmonary: Normal respiratory effort, decreased breath sounds Cardiac: Regular rate and rhythm, normal S1 and S2, no gallops, no rubs, no obvious murmurs Extremities: Right arm is splinted. No edema. No clubbing or cyanosis. Pulses intact. Abdomen: Normal bowel sounds, soft, non-tender, no abdominal mass palpated Skin: Normal skin color, turgor, and pigmentation, no rash, no skin lesions Neurological: Oriented to person, place, and time Data Laboratory Results: Last 24 Hours Test 08/20/17 17:05 08/20/17 17:25 08/20/17 21:05 08/20/17 23:01 Sodium Level 138 mmol/L Potassium Level 3.5 mmol/L Chloride Level 102 mmol/L Carbon Dioxide Level 30 mmol/L Anion Gap 5.0 mmol/L Blood Urea Nitrogen 14 mg/dl Creatinine 0.63 mg/dl Est Creatinine Clear Calc Drug Dose 71.3 ml/min Estimated GFR () 100.3 Estimated GFR (Non- 86.5 BUN/Creatinine Ratio 22.2 Random Glucose 106 mg/dl Calcium Level 9.5 mg/dl Total Bilirubin 0.7 mg/dl Direct Bilirubin 0.1 mg/dl Aspartate Amino Transf (AST/SGOT) 17 U/L Alanine Aminotransferase (ALT/SGPT) 20 U/L Alkaline Phosphatase 53 U/L Troponin I 0.640 ng/ml 0.794 ng/ml Total Protein 7.1 gm/dl Albumin 4.2 gm/dl Lipase 234 U/L White Blood Count 14.22 K/uL Red Blood Count 4.57 M/uL Hemoglobin 14.9 g/dL Hematocrit 44.0 % Mean Corpuscular Volume 96.3 fL Mean Corpuscular Hemoglobin 32.6 pg Mean Corpuscular Hemoglobin Concent 33.9 g/dl Platelet Count 188 K/uL Mean Platelet Volume 10.6 fL Neutrophils (%) (Auto) 86.8 % Lymphocytes (%) (Auto) 4.7 % Monocytes (%) (Auto) 7.8 % Eosinophils (%) (Auto) 0.1 % Basophils (%) (Auto) 0.2 % Neutrophils # (Auto) 12.34 K/uL Lymphocytes # (Auto) 0.67 K/uL Monocytes # (Auto) 1.11 K/uL Eosinophils # (Auto) 0.01 K/uL Basophils # (Auto) 0.03 K/uL RDW Standard Deviation 44.5 fL RDW Coefficient of Variation 12.9 % Immature Granulocyte % (Auto) 0.4 % Immature Granulocyte # (Auto) 0.06 K/uL Prothrombin Time 10.2 SECONDS Prothromb Time International Ratio 1.0 Activated Partial Thromboplast Time 25.2 SECONDS Partial Thromboplastin Ratio 1.0 Ammonia 25.8 umol/L Test 08/21/17 06:36 08/21/17 07:55 Urine Color DK YELLOW Urine Appearance CLEAR Urine pH 7.5 Urine Specific Douglass 1.022 Urine Protein NEG Urine Glucose (UA) NEG Urine Ketones NEG Urine Occult Blood NEG Urine Nitrite NEG Urine Bilirubin NEG Urine Urobilinogen NEG Urine Leukocyte Esterase NEG Urine WBC (Auto) 0 /hpf Urine RBC (Auto) 0-4 /hpf Urine Hyaline Casts (Auto) 0 /lpf Urine Epithelial Cells (Auto) 0-5 /lpf Urine Bacteria (Auto) NEG White Blood Count 7.84 K/uL Red Blood Count 4.12 M/uL Hemoglobin 13.1 g/dL Hematocrit 40.3 % Mean Corpuscular Volume 97.8 fL Mean Corpuscular Hemoglobin 31.8 pg Mean Corpuscular Hemoglobin Concent 32.5 g/dl RDW Standard Deviation 46.3 fL RDW Coefficient of Variation 13.0 % Platelet Count 168 K/uL Mean Platelet Volume 10.4 fL CXR: 1. Persistent nodular opacities in the left lung. 2. Examination limited by scoliotic curvature resulting in malpositioning. Otherwise no evidence of acute cardiopulmonary disease. EKG: Sinus tachycardia at 101 bpm. Poor R wave progression. No acute ST-T wave abnormality. Telemetry reviewed: Sinus rhythm in the 70-80s. Echocardiogram performed today reveals reduced LV systolic function with ejection fraction estimated at 40%. There was an anterior and apical wall motion abnormality. No significant valvular heart disease. Assessment & Plan The patient is a 77-year-old female with no known cardiac history, but with risk factors for cardiovascular disease including hypertension, dyslipidemia, prediabetes, and ongoing tobacco abuse who presented to the ED yesterday after a fall. She was found to have a right radial fracture, which will likely require surgical fixation. Incidentally noted was a mildly elevated troponin, which uday to a peak of 0.794 before trending down. ECG shows no acute ischemic changes. She is asymptomatic with no anginal symptoms. The patient's presentation is not consistent with ACS. Her mildly elevated troponin may be chronic or as a result of the stress from the fall. She does have cardiovascular risk factors as noted above, and she likely has fixed coronary disease. She would therefore be at an intermediate risk for the orthopedic surgery. She has been ordered an echocardiogram, and will await the results of the study before providing final recommendations in regards to surgery. Thank you for allowing us to see this patient in consultation. The patient was discussed with Dr. Anderson, who will also be in to see the patient today. Attending note: I personally saw and examined the patient at the bedside today. Briefly she suffered a mechanical fall yesterday which resulted in a radial fracture. Evaluation emergency room revealed an elevated troponin and the patient underwent echocardiography as a result. Looking at her EKG and echocardiogram it does appear that she has suffered an anterior infarct. The chronicity of the infarct is unclear. I doubt that this is acute and she has very minimal elevations in her biomarkers and has no symptoms of angina or chest pain. There is a small possibility that this occurred 2 weeks ago, once again she did not report symptoms of what would have been a fairly large ID. She does have occasional symptoms of reflux associated with her Callaway's esophagus. She could have mistaken some of her Callaway's symptoms for ischemic chest pain at 1 point. She is a very sedentary individual and has no symptoms with activity. Given the appearance on her echocardiogram there is a small possibility this represents a stress cardiomyopathy. However her EKG is not entirely consistent with that diagnosis and the wall motion abnormality seen more Regional. She also had no chest pain at the time of presentation which is uncommon in the setting of a stress cardiomyopathy. I think her surgical risk is elevated for perioperative event. However, she does appear to be quite stable today without active symptoms of ischemia or heart failure. I do not believe we can attenuate her risk by waiting or instituting medical therapy at this point in time. After discussion with the orthopedic surgeon it appears that surgical therapy is required for effective treatment of her fracture. Therefore, I think it is reasonable to proceed with her operation today taking the standard precautions which would include avoidance of significant hypoxia, blood loss, anemia, hyper or hypotension or significant episodes of tachycardia. We will need to monitor her volume status closely in the perioperative period given her compromised LV systolic function In the postoperative period. Beta-blockade was ordered at the time of admission but not administered. I would not administer a dose of beta blockade this close to her planned surgery. We can institute therapy for presumed ischemic heart disease which would include beta blockade, Marcus inhibition, anti- platelet therapy and high-dose statin therapy.
--- NOTE | 2017-08-21 10:57 | ECHOCARDIOGRAM REPORT ---
*NOTICE TO RECEIVING CONSTITUTION PARTY AGENCY This information is strictly Confidential and protected under [place] law. [place] law prohibits you from making any further disclosure of this information unless further disclosure is expressly permitted by the written consent of the person to whom it pertains or is authorized by law. A general authorization for the release of medical or other information is not sufficient for this purpose. Hospital accepts no responsibility if the information is made available to any other person, INCLUDING THE PATIENT. Interpretation Summary * Name: GABRIEL DURHAM Study Date: 08/21/2017 09:26 AM BP: 98/60 mmHg * Patient Location: C.2T\S\S243\S\1 HR: 83 * : 1940 (M/d/yyy) Gender: Female Height: 69 in * Age: 77 yrs Ethnicity: CA Weight: 133 lb * Ordering Physician: Dante Yap * Referring Physician: Self, Referred * Performed By: Willa Mcknight RCS * * Reason For Study: ELEVATED TROPONIN / PRE-OP * BSA: 1.7 m2 * -- Conclusions -- * Left ventricular systolic function is moderately reduced. * There are regional wall motion abnormalities as specified. * Aortic valve sclerosis mild, without significant aortic valvular stenosis. * Right ventricular systolic pressure is elevated at 40-50mmHg. * There is trace mitral regurgitation. * The inferior vena cava is mildly dilated. Procedure Details * A complete two-dimensional transthoracic echocardiogram was performed (2D, M-mode, Doppler and color flow Doppler). * A contrast injection of Definity was performed to improve assessment of LV function. * Contrast was injected into an intravenous site in the left arm. * One vial of Definity ultrasound contrast was diluted in normal saline to a total volume of 10 ml. A total of '2' ml of solution was administered during imaging. * Lot # [id number] of Definity utilized for procedure. * Expiration date OCT 20. * The attending nurse who injected the contrast agent was TAWANA BREWSTER RN. Left Ventricle * The left ventricle is normal in size. * There is normal left ventricular wall thickness. * Left ventricular systolic function is moderately reduced. * Ejection Fraction = 35-40%. * There are regional wall motion abnormalities as specified. * There is akinesis the distal anterior and apical segments with hyperdynamic function involving the basal segments. Right Ventricle * The right ventricle is normal in size and function. Atria * The left atrial size is normal. * Right atrial size is normal. Mitral Valve * The mitral valve is grossly normal. * There is trace mitral regurgitation. Tricuspid Valve * The tricuspid valve is not well visualized, but is grossly normal. * There is mild tricuspid regurgitation. * Right ventricular systolic pressure is elevated at 40-50mmHg. Aortic Valve * Aortic valve sclerosis mild, without significant aortic valvular stenosis. * No hemodynamically significant valvular aortic stenosis. * There is no significant aortic regurgitation. Great Vessels * The aortic root is normal size. Pericardium/Pleural * There is no pericardial effusion. Great Vessels * The inferior vena cava is mildly dilated. MMode 2D Measurements and Calculations IVSd 1.0 cm IVSs 1.3 cm LVIDd 4.2 cm LVIDs 2.9 cm LVPWd 1.1 cm LVPWs 1.5 cm IVS/LVPW 0.96 FS 29.5 % EDV(Teich) 77.9 ml ESV(Teich) 33.6 ml EF(Teich) 56.9 % EDV(cubed) 73.3 ml ESV(cubed) 25.7 ml EF(cubed) 65.0 % % IVS thick 27.9 % % LVPW thick 35.4 % LV mass(C)d 149.0 grams LV mass(C)dI 85.8 grams/m\S\2 LV mass(C)s 137.7 grams LV mass(C)sI 79.3 grams/m\S\2 SV(Teich) 44.3 ml SI(Teich) 25.5 ml/m\S\2 SV(cubed) 47.6 ml SI(cubed) 27.4 ml/m\S\2 Ao root diam 3.3 cm Ao root area 8.5 cm\S\2 LVOT diam 2.0 cm LVOT area 3.2 cm\S\2 LVAd ap4 26.5 cm\S\2 LVLd ap4 6.7 cm EDV(MOD-sp4) 85.4 ml EDV(sp4-el) 89.4 ml LVAs ap4 20.9 cm\S\2 LVLs ap4 6.8 cm ESV(MOD-sp4) 51.6 ml ESV(sp4-el) 54.7 ml EF(MOD-sp4) 39.5 % EF(sp4-el) 38.9 % LVAd ap2 31.6 cm\S\2 LVLd ap2 7.6 cm EDV(MOD-sp2) 103.9 ml EDV(sp2-el) 111.9 ml LVAs ap2 21.5 cm\S\2 LVLs ap2 6.8 cm ESV(MOD-sp2) 55.1 ml ESV(sp2-el) 57.4 ml EF(MOD-sp2) 46.9 % EF(sp2-el) 48.7 % LVLd %diff 12.1 % EDV(MOD-bp) 101.2 ml LVLs %diff 0.60 % ESV(MOD-bp) 53.1 ml EF(MOD-bp) 47.5 % SV(MOD-sp4) 33.8 ml SI(MOD-sp4) 19.4 ml/m\S\2 SV(MOD-sp2) 48.8 ml SI(MOD-sp2) 28.1 ml/m\S\2 SV(MOD-bp) 48.1 ml SI(MOD-bp) 27.7 ml/m\S\2 SV(sp4-el) 34.8 ml SI(sp4-el) 20.0 ml/m\S\2 SV(sp2-el) 54.4 ml SI(sp2-el) 31.3 ml/m\S\2 Doppler Measurements and Calculations MV E max yung 104.6 cm/sec MV A max yung 99.8 cm/sec MV E/A 1.0 MV P1/2t max yung 106.1 cm/sec MV P1/2t 54.7 msec MVA(P1/2t) 4.0 cm\S\2 MV dec slope 568.4 cm/sec\S\2 MV dec time 0.14 sec Ao V2 max 101.4 cm/sec Ao max PG 4.1 mmHg Ao max PG (full) 2.0 mmHg YANELIS(V,A) 2.3 cm\S\2 YANELIS(V,D) 2.3 cm\S\2 LV V1 max PG 2.1 mmHg LV V1 max 72.3 cm/sec MR max yung 398.1 cm/sec MR max PG 63.4 mmHg TR max yung 299.4 cm/sec
[2017-08-21] MEDS ORDERED: CLINDAMYCIN IV 600 MG in DEXTROSE 5% 50ML 50 ML IV ONE (12:00)
--- NOTE | 2017-08-21 13:49 | Orthopedic Consultation ---
Orthopedic Consultation Date of Consultation: Aug 21, 2017. Attending Physician: Dante Yap M.D. History of Present Illness 77-year-old female who sustained a fall onto her outstretched right upper extremity. She is complaining of pain in the wrist as well as in the hip Past Medical/Surgical History Medical Problems: (1) Abnormal EKG Status: Acute (2) Celiac disease Status: Chronic (3) Colles' fracture of right radius Status: Acute (4) Contusion of right leg Status: Acute (5) Elevated troponin Status: Acute (6) Fall Status: Acute (7) Pelvic fracture Status: Acute Social History Smoking Status: Current Every Day Smoker Marital Status: Housing Status: lives with family Occupation Status: retired Allergies Coded Allergies: Penicillins (Verified Allergy, Mild, 10/06/09) Lactose (Verified Allergy, Unknown, 10/06/09) Home Medications Scheduled Aspirin (Aspirin), 325 MG PO DAILY Atorvastatin (Lipitor), 20 MG PO HS Cholecalciferol (Vitamin D3), 1,000 INTER.UNIT PO DAILY Diphenhydramine Hcl (Diphenhydramine Hcl), 25 MG PO HS Folic Acid (Folic Acid), 800 MCG PO DAILY Mirtazapine (Remeron), 30 MG PO HS Multiple Vitamins W/ Minerals (Centrum Silver 50+Women), 1 TAB PO DAILY Omeprazole (Prilosec), 40 MG PO BID Potassium Ext Rel (Klor-Con), 20 MEQ PO DAILY Scheduled PRN Ipratropium-Albuterol (Combivent Respimat), 1 PUFF INH QID PRN for Shortness of Breath Current Inpatient Medications Current Inpatient Medications Medications (Trade) Dose Ordered Sig/Mari Route Start Time Stop Time Status Last Admin Dose Admin Acetaminophen (Tylenol Tab) 650 mg Q4H PRN PO 08/20/17 19:45 09/19/17 19:44 08/21/17 07:20 650 MG Al Hydrox/Mg Hydrox/Simethicone (Maalox Max Susp) 15 ml Q4H PRN PO 08/20/17 19:45 09/19/17 19:44 Magnesium Hydroxide (Milk Of Magnesia Susp) 30 ml Q12H PRN PO 08/20/17 19:45 09/19/17 19:44 Ondansetron HCl (Zofran Inj) 4 mg Q6H PRN IV 08/20/17 19:45 09/19/17 19:44 Polyethylene (Miralax Powder Packet) 17 gm DAILY PRN PO 08/20/17 19:45 09/19/17 19:44 Morphine Sulfate (MoRPHine SULFATE INJ) 4 mg Q3H PRN IV 08/20/17 19:45 09/03/17 19:44 08/21/17 11:22 4 MG Potassium Chloride/Dextrose/ Sod Cl 1,000 ml @ 100 mls/hr Q10H IV 08/20/17 21:00 08/21/17 16:59 08/21/17 07:20 100 MLS/HR Atorvastatin Calcium (Lipitor Tab) 20 mg HS PO 08/20/17 21:00 09/19/17 20:59 08/20/17 22:01 20 MG Mirtazapine (Remeron Tab) 30 mg HS PO 08/20/17 21:00 09/19/17 20:59 08/20/17 22:03 30 MG Potassium Chloride (Klor-Con Tab) 20 meq DAILY PO 08/21/17 09:00 09/20/17 08:59 Diphenhydramine HCl (Benadryl Cap) 25 mg HS PO 08/20/17 21:00 09/19/17 20:59 08/20/17 22:01 25 MG Folic Acid (Folvite Tab) 800 mcg DAILY PO 08/21/17 09:00 09/20/17 08:59 Pantoprazole Sodium (Protonix Tab) 40 mg BID PO 08/20/17 21:00 09/19/17 20:59 08/20/17 22:01 40 MG Metoprolol Tartrate (Lopressor Tab) 12.5 mg BID PO 08/20/17 21:00 09/19/17 20:59 08/20/17 22:02 12.5 MG Albuterol/ Ipratropium (Duoneb) 3 ml Q6R PRN INH 08/20/17 20:00 09/19/17 19:59 Miscellaneous (Iv Fluids Completed) 1 ea PRN PRN N/A 08/20/17 20:15 08/20/18 20:14 Clindamycin Phosphate 54 ml @ 100 mls/hr PREOP IV 08/21/17 06:00 08/21/17 18:00 Review of Systems Constitutional: No fever, No chills Physical Exam Date Time Temp Pulse Resp B/P (MAP) Pulse Ox O2 Delivery O2 Flow Rate FiO2 08/21/17 11:15 37.3 85 20 94/56 (69) 92 Nasal Cannula 2.0 08/21/17 08:00 Nasal Cannula 2.0 08/21/17 07:55 37.0 77 20 98/60 (73) 92 Nasal Cannula 3.0 08/21/17 04:00 96 Nasal Cannula 2.0 08/21/17 03:38 36.7 86 16 105/68 (80) 96 Nasal Cannula 2.0 08/20/17 23:59 98 Nasal Cannula 2.0 08/20/17 23:30 36.5 79 18 102/66 (78) 98 Nasal Cannula 2.0 08/20/17 20:52 36.8 85 20 114/71 92 Nasal Cannula 2.0 08/20/17 20:18 93 18 123/65 95 08/20/17 17:15 101 08/20/17 17:15 36.6 101 20 119/63 95 Room Air Right upper; light touch sensation in the median ulnar and radial nerve distribution is intact. Capillary refills less than 2 seconds. Motor function in the fingers is intact Right hip: She has mild pain with internal lock shell rotation of the hip. Minimal tenderness to palpation General Appearance: no apparent distress Head: normocephalic Eyes: normal inspection ENT: normal ENT inspection Neck: no adenopathy Cardiovascular: no edema Abdomen/GI: soft Laboratory Results Last 24 Hours Test 08/20/17 17:05 08/20/17 17:25 08/20/17 21:05 08/20/17 23:01 Sodium Level 138 mmol/L Potassium Level 3.5 mmol/L Chloride Level 102 mmol/L Carbon Dioxide Level 30 mmol/L Anion Gap 5.0 mmol/L Blood Urea Nitrogen 14 mg/dl Creatinine 0.63 mg/dl Est Creatinine Clear Calc Drug Dose 71.3 ml/min Estimated GFR () 100.3 Estimated GFR (Non- 86.5 BUN/Creatinine Ratio 22.2 Random Glucose 106 mg/dl Calcium Level 9.5 mg/dl Total Bilirubin 0.7 mg/dl Direct Bilirubin 0.1 mg/dl Aspartate Amino Transf (AST/SGOT) 17 U/L Alanine Aminotransferase (ALT/SGPT) 20 U/L Alkaline Phosphatase 53 U/L Troponin I 0.640 ng/ml 0.794 ng/ml Total Protein 7.1 gm/dl Albumin 4.2 gm/dl Lipase 234 U/L White Blood Count 14.22 K/uL Red Blood Count 4.57 M/uL Hemoglobin 14.9 g/dL Hematocrit 44.0 % Mean Corpuscular Volume 96.3 fL Mean Corpuscular Hemoglobin 32.6 pg Mean Corpuscular Hemoglobin Concent 33.9 g/dl Platelet Count 188 K/uL Mean Platelet Volume 10.6 fL Neutrophils (%) (Auto) 86.8 % Lymphocytes (%) (Auto) 4.7 % Monocytes (%) (Auto) 7.8 % Eosinophils (%) (Auto) 0.1 % Basophils (%) (Auto) 0.2 % Neutrophils # (Auto) 12.34 K/uL Lymphocytes # (Auto) 0.67 K/uL Monocytes # (Auto) 1.11 K/uL Eosinophils # (Auto) 0.01 K/uL Basophils # (Auto) 0.03 K/uL RDW Standard Deviation 44.5 fL RDW Coefficient of Variation 12.9 % Immature Granulocyte % (Auto) 0.4 % Immature Granulocyte # (Auto) 0.06 K/uL Prothrombin Time 10.2 SECONDS Prothromb Time International Ratio 1.0 Activated Partial Thromboplast Time 25.2 SECONDS Partial Thromboplastin Ratio 1.0 Ammonia 25.8 umol/L Test 08/21/17 06:36 08/21/17 07:55 Urine Color DK YELLOW Urine Appearance CLEAR Urine pH 7.5 Urine Specific [place] 1.022 Urine Protein NEG Urine Glucose (UA) NEG Urine Ketones NEG Urine Occult Blood NEG Urine Nitrite NEG Urine Bilirubin NEG Urine Urobilinogen NEG Urine Leukocyte Esterase NEG Urine WBC (Auto) 0 /hpf Urine RBC (Auto) 0-4 /hpf Urine Hyaline Casts (Auto) 0 /lpf Urine Epithelial Cells (Auto) 0-5 /lpf Urine Bacteria (Auto) NEG White Blood Count 7.84 K/uL Red Blood Count 4.12 M/uL Hemoglobin 13.1 g/dL Hematocrit 40.3 % Mean Corpuscular Volume 97.8 fL Mean Corpuscular Hemoglobin 31.8 pg Mean Corpuscular Hemoglobin Concent 32.5 g/dl RDW Standard Deviation 46.3 fL RDW Coefficient of Variation 13.0 % Platelet Count 168 K/uL Mean Platelet Volume 10.4 fL Sodium Level 142 mmol/L Potassium Level 4.5 mmol/L Chloride Level 107 mmol/L Carbon Dioxide Level 33 mmol/L Anion Gap 2.0 mmol/L Blood Urea Nitrogen 15 mg/dl Creatinine 0.58 mg/dl Est Creatinine Clear Calc Drug Dose 76.2 ml/min Estimated GFR () 103.0 Estimated GFR (Non- 88.9 BUN/Creatinine Ratio 26.7 Random Glucose 196 mg/dl Calcium Level 8.5 mg/dl Magnesium Level 2.2 mg/dl Troponin I 0.586 ng/ml Assessment & Plan Right displaced distal radius fracture and right superior pubic ramus fracture Given the amount of dorsal displacement and dorsal comminution of the distal radius fracture my recommendation is for open reduction and internal fixation. The pubic ramus fracture is questionable regardless she may be weightbearing as tolerated on the right side for this. Risks benefits alternatives to surgery on the distal radius discussed with the patient and her family and they wish to proceed. She has been cleared by cardiology and will plan for surgery today
[2017-08-21] MEDS ORDERED: MIDAZOLAM HCL 1 MG/ML 2ML VIAL ONE (14:58)
[2017-08-21] MEDS ORDERED: FENTANYL CITRATE INJ 50 MCG/1 ML 2 ML VIAL ONE (14:58)
[2017-08-21] MEDS ORDERED: BACITRACIN 50000 UNIT VIAL ONE (14:58)
[2017-08-21] MEDS ORDERED: PROPOFOL IV EMULSION 10 MG/ML 20 ML VIAL IV ONE ×2 (14:58→16:44)
[2017-08-21] MEDS ORDERED: FENTANYL CITRATE INJ 50 MCG/1 ML 2 ML VIAL IV PRN (15:30)
[2017-08-21] MEDS ORDERED: ONDANSETRON INJ 2 MG/ML 2 ML VIAL IV PRN ×2 (15:30→18:00)
[2017-08-21] MEDS ORDERED: EpHEDrine SULFATE INJ 50 MG/ML AMP IV PRN (15:30)
[2017-08-21] MEDS ORDERED: ATROPINE SULFATE 0.1 MG/ML 5ML SYR IV PRN (15:30)
--- NOTE | 2017-08-21 15:31 | Hospitalist Progress Note ---
Hospitalist Progress Note Date of Service Aug 21, 2017. (Mercedes Ramirez PA-C) Subjective Pt evaluation today including: conversation w/ patient, conversation w/ family , physical exam, chart review, lab review, review of studies, review of inpatient medication list Patient seen and evaluated. Troponins peaked and trending down. No complaints of chest discomfort. Reporting pain in her R wrist but controlled with pain medication. Echo supports remote UT. Verbalizes no complaints at this time. Pending surgery later today. Constitutional: No fever, No chills Respiratory: No cough, No shortness of breath Cardiovascular: No chest pain, No palpitations Abdomen: No pain, No nausea, No vomiting, No diarrhea, No constipation Musculoskeletal: + joint pain (R wrist), + problem reported (denies hip pain put reports when standing yesterday it was bothersome) Female : No dysuria Heme: No abnormal bleeding/bruising Skin: No rash (Mercedes Ramirez PA-C) Medications Current Inpatient Medications Medications (Trade) Dose Ordered Sig/Mari Route Start Time Stop Time Status Last Admin Dose Admin Acetaminophen (Tylenol Tab) 650 mg Q4H PRN PO 08/20/17 19:45 09/19/17 19:44 08/21/17 07:20 650 MG Al Hydrox/Mg Hydrox/Simethicone (Maalox Max Susp) 15 ml Q4H PRN PO 08/20/17 19:45 09/19/17 19:44 Magnesium Hydroxide (Milk Of Magnesia Susp) 30 ml Q12H PRN PO 08/20/17 19:45 09/19/17 19:44 Ondansetron HCl (Zofran Inj) 4 mg Q6H PRN IV 08/20/17 19:45 09/19/17 19:44 Polyethylene (Miralax Powder Packet) 17 gm DAILY PRN PO 08/20/17 19:45 09/19/17 19:44 Morphine Sulfate (MoRPHine SULFATE INJ) 4 mg Q3H PRN IV 08/20/17 19:45 09/03/17 19:44 08/21/17 11:22 4 MG Potassium Chloride/Dextrose/ Sod Cl 1,000 ml @ 100 mls/hr Q10H IV 08/20/17 21:00 08/21/17 16:59 08/21/17 07:20 100 MLS/HR Atorvastatin Calcium (Lipitor Tab) 20 mg HS PO 08/20/17 21:00 09/19/17 20:59 08/20/17 22:01 20 MG Mirtazapine (Remeron Tab) 30 mg HS PO 08/20/17 21:00 18 20:59 08/20/17 22:03 30 MG Potassium Chloride (Klor-Con Tab) 20 meq DAILY PO 08/21/17 09:00 09/20/17 08:59 Diphenhydramine HCl (Benadryl Cap) 25 mg HS PO 08/20/17 21:00 09/19/17 20:59 08/20/17 22:01 25 MG Folic Acid (Folvite Tab) 800 mcg DAILY PO 08/21/17 09:00 09/20/17 08:59 Pantoprazole Sodium (Protonix Tab) 40 mg BID PO 08/20/17 21:00 09/19/17 20:59 08/20/17 22:01 40 MG Metoprolol Tartrate (Lopressor Tab) 12.5 mg BID PO 08/20/17 21:00 09/19/17 20:59 08/20/17 22:02 12.5 MG Albuterol/ Ipratropium (Duoneb) 3 ml Q6R PRN INH 08/20/17 20:00 09/19/17 19:59 Miscellaneous (Iv Fluids Completed) 1 ea PRN PRN N/A 08/20/17 20:15 08/20/18 20:14 Clindamycin Phosphate 54 ml @ 100 mls/hr PREOP IV 08/21/17 06:00 08/21/17 18:00 (Mercedes Ramirez, LILA) Objective Vital Signs Date Time Temp Pulse Resp B/P (MAP) Pulse Ox O2 Delivery O2 Flow Rate FiO2 08/21/17 14:08 37.3 85 20 94/56 (69) 92 Nasal Cannula 2 08/21/17 12:00 Nasal Cannula 2.0 08/21/17 11:15 37.3 85 20 94/56 (69) 92 Nasal Cannula 2.0 08/21/17 08:00 Nasal Cannula 2.0 08/21/17 07:55 37.0 77 20 98/60 (73) 92 Nasal Cannula 3.0 08/21/17 04:00 96 Nasal Cannula 2.0 08/21/17 03:38 36.7 86 16 105/68 (80) 96 Nasal Cannula 2.0 08/20/17 23:59 98 Nasal Cannula 2.0 08/20/17 23:30 36.5 79 18 102/66 (78) 98 Nasal Cannula 2.0 08/20/17 20:52 36.8 85 20 114/71 92 Nasal Cannula 2.0 08/20/17 20:18 93 18 123/65 95 08/20/17 17:15 101 08/20/17 17:15 36.6 101 20 119/63 95 Room Air (Mercedes Ramirez, PA-C) Physical Exam General Appearance: no apparent distress ENT: hearing grossly normal Neck: supple, no JVD, trachea midline Respiratory/Chest: lungs clear, normal breath sounds, no respiratory distress, no accessory muscle use Cardiovascular: regular rate, rhythm, no gallop, no murmur Abdomen: normal bowel sounds, non tender, soft Extremities: no pedal edema, + pertinent finding (R wrist to upper arm in jabari wrap c/d/i; cap refill immediate and sensation intake) Neurologic/Psychiatric: alert, oriented x 3 Skin: normal color, warm/dry (Mercedes Ramirez, PA-C) Laboratory Results Last 24 Hours Test 08/20/17 17:05 08/20/17 17:25 08/20/17 21:05 08/20/17 23:01 Sodium Level 138 mmol/L Potassium Level 3.5 mmol/L Chloride Level 102 mmol/L Carbon Dioxide Level 30 mmol/L Anion Gap 5.0 mmol/L Blood Urea Nitrogen 14 mg/dl Creatinine 0.63 mg/dl Est Creatinine Clear Calc Drug Dose 71.3 ml/min Estimated GFR () 100.3 Estimated GFR (Non- 86.5 BUN/Creatinine Ratio 22.2 Random Glucose 106 mg/dl Calcium Level 9.5 mg/dl Total Bilirubin 0.7 mg/dl Direct Bilirubin 0.1 mg/dl Aspartate Amino Transf (AST/SGOT) 17 U/L Alanine Aminotransferase (ALT/SGPT) 20 U/L Alkaline Phosphatase 53 U/L Troponin I 0.640 ng/ml 0.794 ng/ml Total Protein 7.1 gm/dl Albumin 4.2 gm/dl Lipase 234 U/L White Blood Count 14.22 K/uL Red Blood Count 4.57 M/uL Hemoglobin 14.9 g/dL Hematocrit 44.0 % Mean Corpuscular Volume 96.3 fL Mean Corpuscular Hemoglobin 32.6 pg Mean Corpuscular Hemoglobin Concent 33.9 g/dl Platelet Count 188 K/uL Mean Platelet Volume 10.6 fL Neutrophils (%) (Auto) 86.8 % Lymphocytes (%) (Auto) 4.7 % Monocytes (%) (Auto) 7.8 % Eosinophils (%) (Auto) 0.1 % Basophils (%) (Auto) 0.2 % Neutrophils # (Auto) 12.34 K/uL Lymphocytes # (Auto) 0.67 K/uL Monocytes # (Auto) 1.11 K/uL Eosinophils # (Auto) 0.01 K/uL Basophils # (Auto) 0.03 K/uL RDW Standard Deviation 44.5 fL RDW Coefficient of Variation 12.9 % Immature Granulocyte % (Auto) 0.4 % Immature Granulocyte # (Auto) 0.06 K/uL Prothrombin Time 10.2 SECONDS Prothromb Time International Ratio 1.0 Activated Partial Thromboplast Time 25.2 SECONDS Partial Thromboplastin Ratio 1.0 Ammonia 25.8 umol/L Test 08/21/17 06:36 08/21/17 07:55 Urine Color DK YELLOW Urine Appearance CLEAR Urine pH 7.5 Urine Specific [place] 1.022 Urine Protein NEG Urine Glucose (UA) NEG Urine Ketones NEG Urine Occult Blood NEG Urine Nitrite NEG Urine Bilirubin NEG Urine Urobilinogen NEG Urine Leukocyte Esterase NEG Urine WBC (Auto) 0 /hpf Urine RBC (Auto) 0-4 /hpf Urine Hyaline Casts (Auto) 0 /lpf Urine Epithelial Cells (Auto) 0-5 /lpf Urine Bacteria (Auto) NEG White Blood Count 7.84 K/uL Red Blood Count 4.12 M/uL Hemoglobin 13.1 g/dL Hematocrit 40.3 % Mean Corpuscular Volume 97.8 fL Mean Corpuscular Hemoglobin 31.8 pg Mean Corpuscular Hemoglobin Concent 32.5 g/dl RDW Standard Deviation 46.3 fL RDW Coefficient of Variation 13.0 % Platelet Count 168 K/uL Mean Platelet Volume 10.4 fL Sodium Level 142 mmol/L Potassium Level 4.5 mmol/L Chloride Level 107 mmol/L Carbon Dioxide Level 33 mmol/L Anion Gap 2.0 mmol/L Blood Urea Nitrogen 15 mg/dl Creatinine 0.58 mg/dl Est Creatinine Clear Calc Drug Dose 76.2 ml/min Estimated GFR () 103.0 Estimated GFR (Non- 88.9 BUN/Creatinine Ratio 26.7 Random Glucose 196 mg/dl Calcium Level 8.5 mg/dl Magnesium Level 2.2 mg/dl Troponin I 0.586 ng/ml (Mercedes Ramirez PA-C) Assessment and Plan Ms. Rodriguez is a 77 y/o who presents after a fall resulting in R radial fx and superior pubic ramus fx Fall, Unknown Cause - R Displaced Radial Fx with Superior Pubic Ramus Fx: - Planned for surgical intervention of radius today Elevated Troponin and Remote UT: Anterior Infarct - Troponins peaked at 0.794 and trending down - no complains of CP - Atorvastatin 20 mg daily - likely need increased to high dose - Metoprolool 12.5 mg BID - Hold on ACEI until evaluation of labs after surgery - Cardiology following - appreciate recommendations - Plan to implement medical management pending surgery COPD without Exacerbation with Continue Tobacco Use: - Duonebs PRN Celiac Disease: - Gluten free diet when not NPO Lung Nodules: - CT recommending repeat in 6 months H/O Bouts of Confusion: H/O Idiopathic Hyperammonemia: - Alert and oriented at this time - will monitor DVT Prophylaxis: SCDs Code Status: FULL RESUSCITATION Disposition: - PT/OT evaluations Continued [facility] stay due to: multiple IV medications needed (Mercedes Ramirez PA-C) I performed a history and physical examination on the patient. I reviewed above note and agree with what is written. During my face to face interaction with the patient, I updated the patient on the plan and answered all of the patient's questions. My exam is below: General Appearance: WD/WN, no apparent distress Neck: supple, no JVD, trachea midline Respiratory/Chest: lungs clear, normal breath sounds, no respiratory distress, no accessory muscle use Cardiovascular: regular rate, rhythm, Abdomen: normal bowel sounds, non tender, soft Extremities: no pedal edema, no calf tenderness, + pertinent finding (R wrist to upper arm in jabari wrap c/d/i; cap refill immediate and sensation intake) Neurologic/Psychiatric: alert, oriented x 3 Skin: normal color, warm/dry (Jimmy Zapata M.D.)
[2017-08-21] MEDS ORDERED: ROPIVACAINE 0.5% 5 MG/ML 30 ML VIAL ONE (15:46)
[2017-08-21] MEDS: CLINDAMYCIN 600 MG/54 ML D5W IV SCH ×2 (15:51→16:02)
[2017-08-21] MEDS ORDERED: ONDANSETRON INJ 2 MG/ML 2 ML VIAL ONE (16:44)
[2017-08-21] MEDS ORDERED: SUCCINYLCHOLINE CHLORIDE 20 MG/ML 10 ML VIAL IV ONE (16:44)
[2017-08-21] MEDS ORDERED: EpHEDrine SULFATE INJ 50 MG/ML AMP ONE (16:44)
[2017-08-21] MEDS ORDERED: PHENYLEPHRINE 100MCG/ML 5ML SYR ONE (16:44)
[2017-08-21] MEDS ORDERED: SUCCINYLCHOLINE 100MG/5ML SYR IV ONE (17:36)
--- NOTE | 2017-08-21 17:41 | DIAGNOSTIC IMAGING REPORT ---
R WRIST 2 VIEWS CLINICAL HISTORY: 77 years-old Female presenting with RT ORIF. TECHNIQUE: 2 fluoroscopic spot image(s) obtained as part of an intraoperative procedure. COMPARISON: 08/20/2017. FINDINGS/IMPRESSION: Interval buttress and screw fixation of the distal radial fracture. There has been interval improved alignment, now near-anatomic, at the fracture plane. Expected soft tissue emphysema. The distal radial ulnar joint is grossly intact. Fracture of the ulnar styloid may be present. Please see surgical report for further details. Fluoroscopy dosage (mGy): 1.11. Fluoroscopy time: 69.6 seconds. Number of fluoroscopic spot images: 2. Electronically signed by: Luis Fernando Bess M.D. 08/21/2017 5:40 PM Dictated Date/Time: 08/21/2017 5:38 PM
[2017-08-21] MEDS ORDERED: BISACODYL 10 MG SUPP PR PRN (18:00)
[2017-08-21] MEDS ORDERED: ALUMINUM/MAGNESIUM/SIMETH (MAALOX MAX) 30 ML UDC PO PRN (18:00)
[2017-08-21] MEDS ORDERED: SOD PHOSPHATE/SOD BIPHOSPHATE ENEMA 132 ML BTL PR PRN (18:00)
[2017-08-21] MEDS ORDERED: MAGNESIUM HYDROXIDE SUSP 30 ML UDC PO PRN (18:00)
[2017-08-21] MEDS ORDERED: ZOLPIDEM TARTRATE 5 MG TAB PO PRN (18:00)
--- NOTE | 2017-08-21 18:18 | [facility] Operative Report ---
Operative Report Operative Date Aug 21, 2017. Pre-Operative Diagnosis Right displaced distal radius fracture, three-part intra-articular Post-Operative Diagnosis Same as preoperative diagnosis Procedure(s) Performed Right Open Reduction Internal Fixation Distal Radius Fracture 3 part intra-articular Surgeon Dr. Hart Sheet Rock Finisher Surgeon(s) Vitaliy PAZ Estimated Blood Loss 10ml Findings As above Specimens none Drains none Anesthesia Gen. Complication(s) None Disposition Recovery Room / PACU Indications 77-year-old female fell and sustained a displaced distal radius fracture. Given the amount of initial displacement and dorsal comminution I recommended open reduction and internal fixation. This was discussed with the patient and her daughter and they wished to proceed. Description of Procedure Risks, benefits and alternatives to surgery including, but not limited to, infection, DVT, pain, stiffness, need for revision surgery, nonunion, failure to relieve all symptoms, damage to blood vessels, damage to nerves, risk of the anesthesia were discussed with the patient and they wished to proceed. The patient was identified. Laterality was confirmed and marked. The patient received a preoperative antibiotic. They were transferred to the operating room and placed in supine position and induced into general endotracheal anesthesia per the anesthesia staff. A well-padded tourniquet was placed on the arm and the limb was prepped and draped in the usual standard manner with ChloraPrep. I made a longitudinal incision on the volar aspect of the wrist in line with the FCR tendon. I sharply incised through the skin and utilized Bovie electrocautery to achieve hemostasis. I incised through the FCR paratenon and mobilize this ulnarly to protect the median nerve. I then incised to the FPL fascia and mobilized this. I identified the pronator quadratus. I incised through this with Bovie leaving a tissue cuff for later repair. There is fairly significant dorsal comminution. I used a [place] elevator to mobilize the distal fragment and clear any interposed soft tissue. Then performed a provisional reduction. There were 3 fracture fragments with extension into the distal radial ulnar joint. I then placed a Vycon DVR cross lock volar locking plate into position. This was a narrow size plate. I confirmed reduction and positioning of the plate with live fluoroscopy views. Once I was satisfied with the reduction in the initial placement of the plate I placed a screw in the oblong hole. I then adjusted the positioning of the plate is necessary under fluoroscopy. Then while holding the fracture reduced I placed 2 locking screws into the distal fragment of the fracture. I confirmed screw length and maintenance of reduction under fluoroscopy. I was satisfied with the reduction of the fracture and the alignment of the implant. I then placed the remaining distal locking screws into position 3 additional screws proximally. Confirmed screw length and fracture reduction on AP lateral and oblique views. I was satisfied with that fracture reduction and implant placement. The DRUJ was inspected and found to be stable. The wound was thoroughly irrigated. The pronator quadratus was closed with interrupted #2 Vicryl suture. The subcutaneous tissue was closed with interrupted 3-0 Vicryl suture and the skin with running 4-0 nylon. A sterile dressing was applied and the tourniquet was released. A volar splint was placed. All needle and sponge counts were correct at the end of the procedure. The patient was transferred to the PACU in stable condition without apparent complication. I attest to the content of the Intraoperative Record and any orders documented therein. Any exceptions are noted below.
--- NOTE | 2017-08-21 18:38 | Anesthesiology Progress Note ---
Anesthesia Post Op Note Date & Time Aug 21, 2017 at 18:38 Vital Signs Pain Intensity: 0 Vital Signs Past 12 Hours Date Time Temp Pulse Resp B/P (MAP) Pulse Ox O2 Delivery O2 Flow Rate FiO2 08/21/17 18:30 99 16 105/48 95 Nasal Cannula 3 08/21/17 18:20 36.9 103 16 101/53 97 Nasal Cannula 3 08/21/17 18:10 102 16 111/55 97 Nasal Cannula 3 08/21/17 18:00 100 16 109/46 100 Oxymask 8 08/21/17 17:51 37 98 16 114/61 99 Oxymask 8 08/21/17 14:08 37.3 85 20 94/56 (69) 92 Nasal Cannula 2 08/21/17 12:00 Nasal Cannula 2.0 08/21/17 11:15 37.3 85 20 94/56 (69) 92 Nasal Cannula 2.0 08/21/17 08:00 Nasal Cannula 2.0 08/21/17 07:55 37.0 77 20 98/60 (73) 92 Nasal Cannula 3.0 Notes Mental Status: alert / awake / arousable, participated in evaluation Pt Amnestic to Procedure: Yes Nausea / Vomiting: adequately controlled Pain: adequately controlled Airway Patency, RR, SpO2: stable & adequate BP & HR: stable & adequate Hydration State: stable & adequate Anesthetic Complications: no major complications apparent
[2017-08-21] MEDS ORDERED: SODIUM CHLORIDE 0.9% 1000ML 1,000 ML IV SCH (20:15)
[2017-08-21] MEDS ORDERED: NURSING VERBAL MED ORDER ONE (20:15)
[2017-08-21] MEDS: SENNA 8.6 MG TAB PO SCH (21:11)
[2017-08-21] MEDS: ATORVASTATIN 20 MG TAB PO SCH (21:12)
[2017-08-21] MEDS: DOCUSATE SODIUM 100 MG CAP PO SCH (21:12)
[2017-08-21] MEDS: MIRTAZAPINE TAB 15 MG TAB PO SCH (21:12)
[2017-08-22] VITALS (8 sets, daily range): BP systolic 92–124; BP diastolic 50–69; PULSE 74–99; TEMP 36.8–37.3; O2SAT 92–100
[2017-08-22] MEDS: MoRPHine SULFATE 4 MG/ML 1 ML CARP\\VIAL IV PRN ×4 (03:14→22:11)
[2017-08-22] MEDS: ACETAMINOPHEN 325 MG TAB PO PRN (03:14)
[2017-08-22] MEDS: OXYCODONE/ACETAMINOPHEN 5-325 TAB PO PRN ×2 (04:29→14:39)
[2017-08-22] MEDS ORDERED: NURSING VERBAL MED ORDER ONE (05:15)
[2017-08-22] MEDS ORDERED: HYDROmorphone INJ 0.5 MG/0.5 ML SYR IV ONE (05:30)
[2017-08-22 07:30] LABS: HEMATOCRIT 35.6 % (37-47); MEAN CELL VOLUME 98.9 fL (80-100); MEAN CORPUSCULAR HEMOGLOBIN 31.9 pg (25-34); MEAN CORPUSCULAR HGB CONC 32.3 g/dl (32-36); MEAN PLATELET VOLUME 10.5 fL (7.4-10.4); PLATELET COUNT 144 K/uL (130-400); WHITE BLOOD COUNT 10.21 K/uL (4.8-10.8)
[2017-08-22 07:38] LABS: PROTHROMBIN TIME (PATIENT) 10.7 SECONDS (9.0-12.0)
[2017-08-22] MEDS: DOCUSATE SODIUM 100 MG CAP PO SCH ×2 (07:45→20:18)
[2017-08-22] MEDS: PANTOprazole SOD 40 MG TAB PO SCH ×2 (07:45→20:20)
[2017-08-22] MEDS: FoLIC ACID TAB 400 MCG TAB PO SCH (07:46)
[2017-08-22] MEDS: FERROUS GLUCONATE 324 MG TAB PO SCH ×3 (07:47→16:28)
[2017-08-22] MEDS: MULTIVITAMIN TAB PO SCH (07:47)
[2017-08-22] MEDS: POTASSIUM CHLORIDE 20 MEQ TABCR PO SCH (07:47)
[2017-08-22 08:06] LABS: BUN/CREATININE RATIO 36.2 (10-20); CALCIUM 8.2 mg/dl (8.5-10.1); CREATININE 0.38 mg/dl (0.60-1.20); POTASSIUM 3.7 mmol/L (3.5-5.1)
--- NOTE | 2017-08-22 08:28 | Anesthesiology Progress Note ---
Anesthesia Post Op Note Date & Time Aug 22, 2017 at 08:27 Vital Signs Pain Intensity: 10.0 Vital Signs Past 12 Hours Date Time Temp Pulse Resp B/P (MAP) Pulse Ox O2 Delivery O2 Flow Rate FiO2 08/22/17 07:24 37.2 93 21 110/69 (83) 93 Nasal Cannula 4.0 08/22/17 04:00 Nasal Cannula 5.0 08/22/17 03:08 36.8 99 20 95/56 (69) 98 Nasal Cannula 5.0 08/22/17 00:00 92 Nasal Cannula 5.0 08/21/17 23:08 36.9 107 20 93/47 (62) 96 Nasal Cannula 5.0 08/21/17 21:50 36.7 105 20 102/47 (65) 92 Nasal Cannula 5.0 08/21/17 20:50 36.5 103 20 94/55 (68) 94 Nasal Cannula 5.0 Notes Mental Status: alert / awake / arousable, participated in evaluation Pt Amnestic to Procedure: Yes Nausea / Vomiting: adequately controlled Pain: adequately controlled Airway Patency, RR, SpO2: stable & adequate BP & HR: stable & adequate Hydration State: stable & adequate Anesthetic Complications: no major complications apparent
[2017-08-22] MEDS: METOPROLOL TARTRATE 25 MG TAB PO SCH ×2 (08:30→21:21)
--- NOTE | 2017-08-22 08:33 | Clinical Documentation Query ---
DEREK Sylvester : CLINICAL DOCUMENTATION QUERY Patient is a 77 year old female admitted for evaluation and treatment of right radial and superior ramus fractures. Noted elevated troponin on admission. Internal medicine noted: "Elevated Troponin and Remote OR: Anterior Infarct" [employer] consultant noted the following: "Looking at her EKG and echocardiogram it does appear that she has suffered an anterior infarct. The chronicity of the infarct is unclear. I doubt that this is acute and she has very minimal elevations in her biomarkers and has no symptoms of angina or chest pain. There is a small possibility that this occurred 2 weeks ago, once again she did not report symptoms of what would have been a fairly large OR. 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 As serum troponin's return to normal in less than 4 weeks in the setting of AMI, this suggests the appropriateness of capturing this important clinical diagnosis. As appropriate, consider documentation as suggested below. Thank you. In your clinical opinion is this patient being managed for: ( x) Acute anterior myocardial infarction (likely) less than 4 weeks ago ( ) Not Agree ( ) Other explanation of clinical findings (Please Explain) ( ) Unable to determine (Please Define) ( ) Need to Discuss The medical record reflects the following clinical findings, treatment, and risk factors. Clinical Indicators: As above Treatment: Serial enzymes, echocardiogram, cardiology consult, statin, lopressor Risk Factors: Age, hypertension, prediabetes, dyslipidemia, ongoing tobacco abuse AMI and the "4 weeks" Reference Medicare defines an acute OR as one which has occurred within four (4) weeks of admission. The physician may render an opinion regarding a "possible" or "probable" OR based on the patient's history of symptoms, EKG changes and/or other diagnostic evidence. "Within four weeks" must be explicitly documented-- terminology such as "recent" and "remote" is not sufficient. Despite the intentions of many physicians, the documentation of "Acute Coronary Syndrome" will not capture the diagnosis of an Acute Myocardial Infarction. In coding language, "ACS" is considered an acute but unspecified form of ischemic heart disease and likely does not capture the SOI or ROM intended by the physician. *If the clinical evidence suggests a diagnosis of acute myocardial infarction, document acute myocardial infarction. *And remember, an OR is considered "acute" even if the event occurred 4 weeks prior to the encounter Please clarify and document your clinical opinion in the progress notes and discharge summary. Terms such as "probable", "suspected", "likely", "questionable", "possible", or "still to be ruled out" are acceptable. IF IN AGREEMENT, YOU MUST DOCUMENT ABOVE DIAGNOSTIC STATEMENT IN DAILY PROGRESS NOTES AND DISCHARGE SUMMARY. This document is not part of the patient's record. Thank You, Alfredito Plunkett, FOZIA [phone]
--- NOTE | 2017-08-22 11:12 | Hospitalist Progress Note ---
Hospitalist Progress Note Date of Service Aug 22, 2017. (Mercedes Ramirez PA-C) Subjective Pt evaluation today including: conversation w/ patient, physical exam, chart review, lab review, review of studies, review of inpatient medication list Patient seen and evaluated. Stable on monitor with NSR with PVCs in 90-110s. Reporting pain is better controlled this AM compared to yesterday. Denies CP or SOB. PT/OT recommending rehab. Will continue BB and increased statin to 80 mg daily. Will hold of ACEI given lower BP readings and hold on ASA initially after surgery. Tolerating diet without issues. Constitutional: No fever, No chills Respiratory: No cough, No shortness of breath Cardiovascular: No chest pain, No palpitations Abdomen: No pain, No nausea, No vomiting, No diarrhea, No constipation Musculoskeletal: + joint pain (R wrist - improving), No calf pain Female : No dysuria Heme: No abnormal bleeding/bruising Skin: No rash (Mercedes Ramirez, JACKSON-C) Medications Current Inpatient Medications Medications (Trade) Dose Ordered Sig/Mari Route Start Time Stop Time Status Last Admin Dose Admin Acetaminophen (Tylenol Tab) 650 mg Q4H PRN PO 08/20/17 19:45 09/19/17 19:44 08/22/17 03:14 650 MG Polyethylene (Miralax Powder Packet) 17 gm DAILY PRN PO 08/20/17 19:45 09/19/17 19:44 Morphine Sulfate (MoRPHine SULFATE INJ) 4 mg Q3H PRN IV 08/20/17 19:45 09/03/17 19:44 08/22/17 03:14 4 MG Atorvastatin Calcium (Lipitor Tab) 20 mg HS PO 08/20/17 21:00 09/19/17 20:59 08/21/17 21:12 20 MG Mirtazapine (Remeron Tab) 30 mg HS PO 08/20/17 21:00 09/19/17 20:59 08/21/17 21:12 30 MG Potassium Chloride (Klor-Con Tab) 20 meq DAILY PO 08/21/17 09:00 09/20/17 08:59 08/22/17 07:47 20 MEQ Diphenhydramine HCl (Benadryl Cap) 25 mg HS PO 08/20/17 21:00 09/19/17 20:59 08/21/17 21:12 25 MG Folic Acid (Folvite Tab) 800 mcg DAILY PO 08/21/17 09:00 09/20/17 08:59 08/22/17 07:46 800 MCG Pantoprazole Sodium (Protonix Tab) 40 mg BID PO 08/20/17 21:00 09/19/17 20:59 08/22/17 07:45 40 MG Metoprolol Tartrate (Lopressor Tab) 12.5 mg BID PO 08/20/17 21:00 09/19/17 20:59 08/22/17 08:30 12.5 MG Albuterol/ Ipratropium (Duoneb) 3 ml Q6R PRN INH 08/20/17 20:00 09/19/17 19:59 Miscellaneous (Iv Fluids Completed) 1 ea PRN PRN N/A 08/20/17 20:15 08/20/18 20:14 Oxycodone/ Acetaminophen (Percocet 5-325mg Tab) 1-2 TABLETS 1 TABLET ... Q6H PRN PO 08/21/17 18:00 09/04/17 17:59 08/22/17 04:29 1 TAB Magnesium Hydroxide (Milk Of Magnesia Susp) 30 ml Q6H PRN PO 08/21/17 18:00 09/20/17 17:59 Bisacodyl (Dulcolax Supp) 10 mg DAILY PRN SC 08/21/17 18:00 09/20/17 17:59 Sodium Biphosphate/ Sodium Phosphate (Fleet Enema) 132 ml DAILY PRN SC 08/21/17 18:00 09/20/17 17:59 Senna (Senokot Tab) 17.2 mg HS PO 08/21/17 21:00 09/20/17 20:59 08/21/17 21:11 17.2 MG Docusate Sodium (coLACE CAP) 100 mg BID PO 08/21/17 21:00 09/20/17 20:59 08/22/17 07:45 100 MG Diphenhydramine HCl (Benadryl Cap) 25 mg Q8H PRN PO 08/21/17 18:00 09/20/17 17:59 Al Hydrox/Mg Hydrox/Simethicone (Maalox Max Susp) 15 ml Q4H PRN PO 08/21/17 18:00 09/20/17 17:59 Zolpidem Tartrate (Ambien Tab) 5 mg HSZ PRN PO 08/21/17 18:00 09/20/17 17:59 Multivitamins (Multivitamin Tab) 1 tab QAM PO 08/22/17 09:00 18 08:59 08/22/17 07:47 1 TAB Ondansetron HCl (Zofran Inj) 4 mg Q6H PRN IV 08/21/17 18:00 09/20/17 17:59 Ferrous Gluconate (Ferrous Gluconate Tab) 324 mg TIDM PO 08/22/17 07:30 09/21/17 07:29 08/22/17 07:47 324 MG (Mercedes Ramirez, LILA) Objective Vital Signs Date Time Temp Pulse Resp B/P (MAP) Pulse Ox O2 Delivery O2 Flow Rate FiO2 08/22/17 08:00 Nasal Cannula 5.0 08/22/17 07:24 37.2 93 21 110/69 (83) 93 Nasal Cannula 4.0 08/22/17 04:00 Nasal Cannula 5.0 08/22/17 03:08 36.8 99 20 95/56 (69) 98 Nasal Cannula 5.0 08/22/17 00:00 92 Nasal Cannula 5.0 08/21/17 23:08 36.9 107 20 93/47 (62) 96 Nasal Cannula 5.0 08/21/17 21:50 36.7 105 20 102/47 (65) 92 Nasal Cannula 5.0 08/21/17 20:50 36.5 103 20 94/55 (68) 94 Nasal Cannula 5.0 08/21/17 19:20 36.6 110 20 85/37 (53) 91 Nasal Cannula 5.0 08/21/17 19:20 36.6 108 18 90/40 (57) 92 Nasal Cannula 5.0 08/21/17 18:50 92 Nasal Cannula 5.0 08/21/17 18:50 36.7 110 20 94/61 (72) 92 Nasal Cannula 3.0 08/21/17 18:30 99 16 105/48 95 Nasal Cannula 3 08/21/17 18:20 36.9 103 16 101/53 97 Nasal Cannula 3 08/21/17 18:10 102 16 111/55 97 Nasal Cannula 3 08/21/17 18:00 100 16 109/46 100 Oxymask 8 08/21/17 17:51 37 98 16 114/61 99 Oxymask 8 08/21/17 14:08 37.3 85 20 94/56 (69) 92 Nasal Cannula 2 08/21/17 12:00 Nasal Cannula 2.0 08/21/17 11:15 37.3 85 20 94/56 (69) 92 Nasal Cannula 2.0 (Mercedes Ramirez, PA-C) Physical Exam General Appearance: WD/WN, no apparent distress Eyes: sclerae normal ENT: hearing grossly normal Neck: supple, no JVD, trachea midline Respiratory/Chest: lungs clear, normal breath sounds, no respiratory distress, no accessory muscle use Cardiovascular: regular rate, rhythm, no gallop, no murmur Abdomen: normal bowel sounds, non tender, soft Extremities: no pedal edema, no calf tenderness, + pertinent finding (R wrist with MARK wrap C/D/I - motor function intact to fingers; good perfusion and fingers warm to touch) Neurologic/Psychiatric: alert Skin: normal color, warm/dry (Mercedes Ramirez, PA-C) Laboratory Results Last 24 Hours Test 08/22/17 06:55 White Blood Count 10.21 K/uL Red Blood Count 3.60 M/uL Hemoglobin 11.5 g/dL Hematocrit 35.6 % Mean Corpuscular Volume 98.9 fL Mean Corpuscular Hemoglobin 31.9 pg Mean Corpuscular Hemoglobin Concent 32.3 g/dl RDW Standard Deviation 47.1 fL RDW Coefficient of Variation 13.1 % Platelet Count 144 K/uL Mean Platelet Volume 10.5 fL Prothrombin Time 10.7 SECONDS Prothromb Time International Ratio 1.0 Sodium Level 141 mmol/L Potassium Level 3.7 mmol/L Chloride Level 106 mmol/L Carbon Dioxide Level 31 mmol/L Anion Gap 4.0 mmol/L Blood Urea Nitrogen 14 mg/dl Creatinine 0.38 mg/dl Est Creatinine Clear Calc Drug Dose 121.3 ml/min Estimated GFR () 118.4 Estimated GFR (Non- 102.2 BUN/Creatinine Ratio 36.2 Random Glucose 136 mg/dl Calcium Level 8.2 mg/dl Magnesium Level 2.0 mg/dl (Mercedes Ramirez PA-C) Assessment and Plan Ms. Rodriguez is a 77 y/o who presents after a fall resulting in R radial fx and superior pubic ramus fx Mechanical Fall - R Displaced Radial Fx with Superior Pubic Ramus Fx: - S/P ORIF on 08/22 - PT/OT - recommendations for rehab - plan for [facility] Elevated Troponin and Acute MN: Anterior Infarct - Anticipate this occurred within the last 4 weeks as trops were elevated on admission and trending down - Troponins peaked at 0.794 and trending down - no complains of CP - Atorvastatin increased to 80 mg daily - Metoprolol 12.5 mg BID - Hold on ACEI given BP rather low and continue to monitor - Cardiology following - appreciate recommendations - Plan to implement medical management COPD without Exacerbation with Continue Tobacco Use: - Duonebs PRN Celiac Disease: - Gluten free diet when not NPO Lung Nodules: - CT recommending repeat in 6 months H/O Bouts of Confusion: H/O Idiopathic Hyperammonemia: - Alert and oriented at this time - will monitor DVT Prophylaxis: SCDs Code Status: FULL RESUSCITATION Disposition: - Plan for [facility] - will need cardiology F/U and anticipate F/U echo in a few months - Recommend to encourage oral pain control as she did require IV coverage early this AM - if pain is controlled with oral medications and no further interventions by cardiology and orthopedics - would anticipate she would be medically optimal for D/C tomorrow to [facility] Continued [facility] stay due to: multiple IV medications needed Discharge planning: rehab hospital (Mercedes Ramirez PA-C) I performed a history and physical examination on the patient. I reviewed above note and agree with what is written. During my face to face interaction with the patient, I updated the patient on the plan and answered all of the patient's questions. My exam is below: General Appearance: WD/WN, no apparent distress Neck: supple, no JVD, trachea midline Respiratory/Chest: lungs clear, normal breath sounds, no respiratory distress, no accessory muscle use Cardiovascular: regular rate, rhythm, Abdomen: normal bowel sounds, non tender, soft Extremities: no pedal edema, no calf tenderness, + pertinent finding (R wrist to upper arm in mark wrap c/d/i; cap refill immediate and sensation intake) Neurologic/Psychiatric: alert, oriented x 3 Skin: normal color, warm/dry (Jimmy Zapata M.D.)
--- NOTE | 2017-08-22 13:15 | Cardiology Follow-Up ---
Subjective Date of Service: Aug 22, 2017. Pt evaluation today including: conversation w/ patient, physical exam, chart review, lab review, review of studies, review of inpatient medication list History of Present Illness Patient complains of operative site pain. She denies significant breathing difficulty. She has not had any symptoms of chest discomfort. Social History Smoking Status: Current Every Day Smoker History of Alcohol Use: No Review of Systems Respiratory: No cough, No shortness of breath Cardiac: No chest pain, No palpitations Objective Vital Signs Past 12 Hours Date Time Temp Pulse Resp B/P (MAP) Pulse Ox O2 Delivery O2 Flow Rate FiO2 08/22/17 12:00 Nasal Cannula 5.0 08/22/17 10:58 36.8 88 20 101/50 (67) 100 Nasal Cannula 4.0 08/22/17 08:00 Nasal Cannula 5.0 08/22/17 07:24 37.2 93 21 110/69 (83) 93 Nasal Cannula 4.0 08/22/17 04:00 Nasal Cannula 5.0 08/22/17 03:08 36.8 99 20 95/56 (69) 98 Nasal Cannula 5.0 Last Recorded Weight-Kilograms: 62.000 Physical Exam Constitutional: Alert. Answers questions appropriately. No acute distress. HEENT: Head is atraumatic and normocephalic. EOMs intact. Sclera anicteric. Face is symmetric. No perioral cyanosis. Mucous membranes moist. Neck: Supple, no appreciable JVD Pulmonary: Normal respiratory effort, decreased breath sounds Cardiac: Regular rate and rhythm, normal S1 and S2, no gallops, no rubs, no obvious murmurs Extremities: Right arm is splinted. No edema. No clubbing or cyanosis (blue from antiseptic). Pulses intact. Abdomen: Normal bowel sounds, soft, non-tender, no abdominal mass palpated Skin: Normal skin color, turgor, and pigmentation, no rash, no skin lesions Neurological: Oriented to person, place, and time Data Laboratory Results: Last 24 Hours Test 08/22/17 06:55 White Blood Count 10.21 K/uL Red Blood Count 3.60 M/uL Hemoglobin 11.5 g/dL Hematocrit 35.6 % Mean Corpuscular Volume 98.9 fL Mean Corpuscular Hemoglobin 31.9 pg Mean Corpuscular Hemoglobin Concent 32.3 g/dl RDW Standard Deviation 47.1 fL RDW Coefficient of Variation 13.1 % Platelet Count 144 K/uL Mean Platelet Volume 10.5 fL Prothrombin Time 10.7 SECONDS Prothromb Time International Ratio 1.0 Sodium Level 141 mmol/L Potassium Level 3.7 mmol/L Chloride Level 106 mmol/L Carbon Dioxide Level 31 mmol/L Anion Gap 4.0 mmol/L Blood Urea Nitrogen 14 mg/dl Creatinine 0.38 mg/dl Est Creatinine Clear Calc Drug Dose 121.3 ml/min Estimated GFR () 118.4 Estimated GFR (Non- 102.2 BUN/Creatinine Ratio 36.2 Random Glucose 136 mg/dl Calcium Level 8.2 mg/dl Magnesium Level 2.0 mg/dl Telemetry reviewed: Sinus rhythm with occasional PVCs Assessment and Plan 1. Elevated cardiac biomarkers: These were relatively flat and not associated with acute symptoms. It is possible this represented form of demand ischemia or chronic ischemia in the setting of a prior ID. We will treat her according to presumed coronary disease with daily dose of aspirin high-dose atorvastatin and beta blockade. These therapies very been instituted. 2. Cardiomyopathy: Presumed ischemic based on her history. She appears well compensated currently. I would agree with the interventions currently undertaken which include daily aspirin, high-dose atorvastatin and beta blockade. Ideally she would be on Marcus inhibition as well but I agree that her blood pressure precludes initiation at this time. Given her absence of symptoms and well compensated state she can be followed up in the clinic for continued management of her newly discovered cardiomyopathy. 3. Coronary artery disease: Presumed. She has multiple risk factors and her echocardiogram is consistent with an old infarct. As noted above she has been started on medical therapy. No acute symptoms currently. I would like to see her in the clinic after discharge for continued management of her presumed coronary disease and ischemic cardiomyopathy. In the absence of new symptoms we will sign off currently. Dr. Catalan will be covering over the weekend if additional acute issues arise.
[2017-08-22] MEDS: ATORVASTATIN 40 MG TAB PO SCH (20:19)
[2017-08-22] MEDS: MIRTAZAPINE TAB 15 MG TAB PO SCH (20:19)
[2017-08-22] MEDS: SENNA 8.6 MG TAB PO SCH (20:22)
[2017-08-23] VITALS (8 sets, daily range): BP systolic 95–116; BP diastolic 47–72; PULSE 79–106; TEMP 36.7–37.6; O2SAT 90–96
[2017-08-23] MEDS: OXYCODONE/ACETAMINOPHEN 5-325 TAB PO PRN ×3 (02:14→19:58)
[2017-08-23 07:36] LABS: HEMATOCRIT 32.1 % (37-47); MEAN CELL VOLUME 98.2 fL (80-100); MEAN CORPUSCULAR HEMOGLOBIN 32.7 pg (25-34); MEAN CORPUSCULAR HGB CONC 33.3 g/dl (32-36); MEAN PLATELET VOLUME 10.2 fL (7.4-10.4); PLATELET COUNT 136 K/uL (130-400); RED BLOOD COUNT 3.27 M/uL (4.2-5.4); WHITE BLOOD COUNT 8.46 K/uL (4.8-10.8)
[2017-08-23 07:45] LABS: PROTHROMBIN TIME (PATIENT) 10.1 SECONDS (9.0-12.0)
[2017-08-23 08:04] LABS: BUN/CREATININE RATIO 27.2 (10-20); CALCIUM 8.5 mg/dl (8.5-10.1); CREATININE 0.36 mg/dl (0.60-1.20); POTASSIUM 3.5 mmol/L (3.5-5.1)
[2017-08-23] MEDS: FERROUS GLUCONATE 324 MG TAB PO SCH ×3 (08:14→17:34)
[2017-08-23] MEDS: FoLIC ACID TAB 400 MCG TAB PO SCH (08:14)
[2017-08-23] MEDS: MULTIVITAMIN TAB PO SCH (08:14)
[2017-08-23] MEDS: POTASSIUM CHLORIDE 20 MEQ TABCR PO SCH (08:15)
[2017-08-23] MEDS: METOPROLOL TARTRATE 25 MG TAB PO SCH ×2 (08:15→20:00)
[2017-08-23] MEDS: PANTOprazole SOD 40 MG TAB PO SCH ×2 (08:16→20:00)
[2017-08-23] MEDS: DOCUSATE SODIUM 100 MG CAP PO SCH ×2 (08:16→20:01)
--- NOTE | 2017-08-23 08:48 | Orthopedic Progress Note ---
Orthopedic Progress Note Date of Service Aug 23, 2017. Subjective Post OP Day: 1 Reports: feeling well, pain controlled w PO medications, Denies: complaints, chest pain, SOB, nausea / vomiting, light headedness, calf pain Additional Notes: Patient seen at bedside, comfortable, no acute issues overnight, pain well controlled. Objective NAD, AOx3 Right upper extremity; light touch sensation in the median ulnar and radial nerve distribution is intact. Capillary refills less than 2 seconds. Motor function in the fingers is intact, dressing/splint cdi Right lower extremity: NVSI +EHL/FHL/TA/GS SILT grossly, CR< 2 seconds, compartments soft NT Date Time Temp Pulse Resp B/P (MAP) Pulse Ox O2 Delivery O2 Flow Rate FiO2 08/23/17 08:02 37.3 88 20 108/62 (77) 94 Nasal Cannula 2.0 08/23/17 04:00 Nasal Cannula 5.0 08/23/17 03:33 37.6 102 17 101/47 (65) 90 Nasal Cannula 3.0 08/23/17 00:00 Nasal Cannula 5.0 08/22/17 23:50 37.3 99 19 109/52 (71) 97 Nasal Cannula 3.0 08/22/17 21:15 94 16 122/56 (78) 97 Nasal Cannula 5.0 08/22/17 20:00 Nasal Cannula 5.0 08/22/17 19:12 36.8 74 18 92/51 (65) 96 08/22/17 16:19 37.0 84 18 124/63 (83) 96 08/22/17 16:01 Nasal Cannula 5.0 08/22/17 12:00 Nasal Cannula 5.0 08/22/17 10:58 36.8 88 20 101/50 (67) 100 Nasal Cannula 4.0 Laboratory Results 24 Hours: Test 08/23/17 07:11 Hematocrit 32.1 % Hemoglobin 10.7 g/dL Prothromb Time International Ratio 1.0 Prothrombin Time 10.1 SECONDS Assessment & Plan Assessment: POD#1 s/p ORIF R distal radius R sup pubic rami fracture Plan: -NWB RUE -WBAT RLE -PT/OT -Pain controlled -Maintain dressing RUE till follow up appointment -Am labs -Orthopedically stable -Cardiology Nurse recs in chart
--- NOTE | 2017-08-23 08:57 | Consultant Recommendations ---
Sociocultural Anthropology Professor Recommendations Date of Service Aug 23, 2017. Sociocultural Anthropology Professor Recommendations ACTIVITY RECOMMENDATIONS: * Avoid lifting anything with your right arm until your first post operative visit. * You may weight bear as you tolerate on your right lower extremity with assistance, platform walker. SPECIAL CARE INSTRUCTIONS: * Your bandage should be left in place until your follow up appointment. * Keep dressing clean and dry at all times, do not get wet. * Some drainage onto the dressing may occur. This is normal. * If the bandage feels excessively tight, you may loosen the elastic bandage. Then call the physician's office for further instructions. * If possible, keep your hand elevated above the level of your heart for the first 2 post operative days. You may use a sling if necessary. * You should move your fingers regularly (50-100 motions per hour) unless otherwise instructed. * You can move your elbow with gentle range of motion regularly. SPECIAL PRECAUTIONS: * If you notice increased drainage, fever over 101 degrees F. or severe, unremitting pain, call your physician/office at . * You may have been prescribed pain medication. If you experience nausea and/or skin rash, discontinue this medication and contact our office for an alternative medication. FOLLOW UP VISIT: If appointment is not already scheduled: Please call [facility] [place] to make a follow-up appointment after your surgery at , 10-14 days after surgery.
[2017-08-23] MEDS ORDERED: LACTULOSE SYRUP 10 GM/15 ML BTL 473 ML PO ONE (12:00)
[2017-08-23] MEDS: SENNA 8.6 MG TAB PO SCH (20:00)
[2017-08-23] MEDS: ATORVASTATIN 40 MG TAB PO SCH (20:00)
[2017-08-23] MEDS: MIRTAZAPINE TAB 15 MG TAB PO SCH (20:01)
[2017-08-23] MEDS ORDERED: FENTANYL CITRATE INJ 50 MCG/1 ML 2 ML VIAL IV PRN (20:45)
[2017-08-23] MEDS ORDERED: ALUMINUM/MAGNESIUM/SIMETH (MAALOX MAX) 30 ML UDC PO PRN (20:45)
[2017-08-23] MEDS ORDERED: EpHEDrine SULFATE INJ 50 MG/ML AMP IV PRN (20:45)
[2017-08-23] MEDS ORDERED: MAGNESIUM HYDROXIDE SUSP 30 ML UDC PO PRN (20:45)
[2017-08-23] MEDS ORDERED: ATROPINE SULFATE 0.1 MG/ML 5ML SYR IV PRN (20:45)
[2017-08-23] MEDS ORDERED: ONDANSETRON INJ 2 MG/ML 2 ML VIAL IV PRN ×2 (20:45)
[2017-08-23 21:01] LABS: HEMATOCRIT 33.6 % (37-47); MEAN CELL VOLUME 97.7 fL (80-100); MEAN CORPUSCULAR HEMOGLOBIN 32.6 pg (25-34); MEAN CORPUSCULAR HGB CONC 33.3 g/dl (32-36); PLATELET COUNT 155 K/uL (130-400); RED BLOOD COUNT 3.44 M/uL (4.2-5.4); WHITE BLOOD COUNT 8.21 K/uL (4.8-10.8)
[2017-08-23 21:18] LABS: BUN/CREATININE RATIO 27.6 (10-20); CALCIUM 8.3 mg/dl (8.5-10.1); CREATININE 0.49 mg/dl (0.60-1.20); MAGNESIUM 1.9 mg/dl (1.8-2.4); POTASSIUM 3.5 mmol/L (3.5-5.1)
--- NOTE | 2017-08-23 22:43 | Progress Note ---
Subjective Date of Service: Aug 23, 2017. Subjective Pt evaluation today including: conversation w/ patient, conversation w/ family , physical exam, chart review 77 yo female who was a little lethargic this morning. States she has not had a BM for the past few days. Patient denies any worsening of her pain, she actually states that her right arm is better. Problem List Medical Problems: (1) Abnormal EKG Status: Acute (2) Celiac disease Status: Chronic (3) Colles' fracture of right radius Status: Acute (4) Contusion of right leg Status: Acute (5) Elevated troponin Status: Acute (6) Fall Status: Acute (7) Pelvic fracture Status: Acute Review of Systems Constitutional: No fever, No chills Respiratory: No cough, No sputum Cardiac: No chest pain, No orthopnea Neurologic: No memory loss, No paralysis Skin: No rash, No itch All Other Systems: Reviewed and Negative Medications Current Inpatient Medications Medications (Trade) Dose Ordered Sig/Mari Route Start Time Stop Time Status Last Admin Dose Admin Acetaminophen (Tylenol Tab) 650 mg Q4H PRN PO 08/20/17 19:45 09/19/17 19:44 08/22/17 03:14 650 MG Polyethylene (Miralax Powder Packet) 17 gm DAILY PRN PO 08/20/17 19:45 09/19/17 19:44 Mirtazapine (Remeron Tab) 30 mg HS PO 08/20/17 21:00 09/19/17 20:59 08/23/17 20:01 30 MG Potassium Chloride (Klor-Con Tab) 20 meq DAILY PO 08/21/17 09:00 09/20/17 08:59 08/23/17 08:15 20 MEQ Diphenhydramine HCl (Benadryl Cap) 25 mg HS PO 08/20/17 21:00 09/19/17 20:59 08/23/17 20:01 25 MG Folic Acid (Folvite Tab) 800 mcg DAILY PO 08/21/17 09:00 09/20/17 08:59 08/23/17 08:14 800 MCG Pantoprazole Sodium (Protonix Tab) 40 mg BID PO 08/20/17 21:00 09/19/17 20:59 08/23/17 20:00 40 MG Metoprolol Tartrate (Lopressor Tab) 12.5 mg BID PO 08/20/17 21:00 09/19/17 20:59 08/23/17 20:00 12.5 MG Albuterol/ Ipratropium (Duoneb) 3 ml Q6R PRN INH 08/20/17 20:00 09/19/17 19:59 Miscellaneous (Iv Fluids Completed) 1 ea PRN PRN N/A 08/20/17 20:15 08/20/18 20:14 Oxycodone/ Acetaminophen (Percocet 5-325mg Tab) 1-2 TABLETS 1 TABLET ... Q6H PRN PO 08/21/17 18:00 09/04/17 17:59 08/24/17 03:20 2 TAB Bisacodyl (Dulcolax Supp) 10 mg DAILY PRN [place] 08/21/17 18:00 09/20/17 17:59 Sodium Biphosphate/ Sodium Phosphate (Fleet Enema) 132 ml DAILY PRN [place] 08/21/17 18:00 09/20/17 17:59 Senna (Senokot Tab) 17.2 mg HS PO 08/21/17 21:00 09/20/17 20:59 08/23/17 20:00 17.2 MG Docusate Sodium (coLACE CAP) 100 mg BID PO 08/21/17 21:00 09/20/17 20:59 08/23/17 20:01 100 MG Diphenhydramine HCl (Benadryl Cap) 25 mg Q8H PRN PO 08/21/17 18:00 09/20/17 17:59 08/23/17 17:38 25 MG Zolpidem Tartrate (Ambien Tab) 5 mg HSZ PRN PO 08/21/17 18:00 09/20/17 17:59 Multivitamins (Multivitamin Tab) 1 tab QAM PO 08/22/17 09:00 09/21/17 08:59 08/23/17 08:14 1 TAB Ferrous Gluconate (Ferrous Gluconate Tab) 324 mg TIDM PO 08/22/17 07:30 09/21/17 07:29 08/23/17 17:34 324 MG Atorvastatin Calcium (Lipitor Tab) 80 mg HS PO 08/22/17 21:00 09/19/17 20:59 08/23/17 20:00 80 MG Al Hydrox/Mg Hydrox/Simethicone (Maalox Max Susp) 15 ml Q4H PRN PO 08/23/17 20:45 09/19/17 19:44 Magnesium Hydroxide (Milk Of Magnesia Susp) 30 ml Q12H PRN PO 08/23/17 20:45 09/19/17 19:44 Ondansetron HCl (Zofran Inj) 4 mg Q6H PRN IV 08/23/17 20:45 09/19/17 19:44 Objective Vital Signs Date Time Temp Pulse Resp B/P (MAP) Pulse Ox O2 Delivery O2 Flow Rate FiO2 08/23/17 21:30 36.7 79 16 95/52 (66) 92 Nasal Cannula 2.0 08/23/17 21:08 37.0 106 18 95 3.0 08/23/17 20:00 Nasal Cannula 3.0 08/23/17 19:15 37.0 106 18 116/72 (87) 95 Nasal Cannula 3.0 08/23/17 15:41 36.8 101 18 110/68 (82) 96 Nasal Cannula 3.0 08/23/17 15:30 Nasal Cannula 3.0 08/23/17 12:24 36.8 88 22 107/62 (77) 96 Room Air 08/23/17 11:30 Nasal Cannula 3.0 08/23/17 08:02 37.3 88 20 108/62 (77) 94 Nasal Cannula 2.0 08/23/17 08:00 Nasal Cannula 3.0 08/23/17 04:00 Nasal Cannula 5.0 08/23/17 03:33 37.6 102 17 101/47 (65) 90 Nasal Cannula 3.0 08/23/17 00:00 Nasal Cannula 5.0 08/22/17 23:50 37.3 99 19 109/52 (71) 97 Nasal Cannula 3.0 Physical Exam Comments: General Appearance: WD/WN, no apparent distress Eyes: sclerae normal ENT: hearing grossly normal Neck: supple, no JVD, trachea midline Respiratory/Chest: lungs clear, normal breath sounds, no respiratory distress, no accessory muscle use Cardiovascular: regular rate, rhythm, no gallop, no murmur Abdomen: normal bowel sounds, non tender, soft Extremities: no pedal edema, no calf tenderness, + pertinent finding (R wrist with MARK wrap C/D/I - motor function intact to fingers; good perfusion and fingers warm to touch) Neurologic/Psychiatric: alert Skin: normal color, warm/dry Laboratory Results Last 24 Hours Test 08/23/17 07:11 08/23/17 20:54 White Blood Count 8.46 K/uL 8.21 K/uL Red Blood Count 3.27 M/uL 3.44 M/uL Hemoglobin 10.7 g/dL 11.2 g/dL Hematocrit 32.1 % 33.6 % Mean Corpuscular Volume 98.2 fL 97.7 fL Mean Corpuscular Hemoglobin 32.7 pg 32.6 pg Mean Corpuscular Hemoglobin Concent 33.3 g/dl 33.3 g/dl RDW Standard Deviation 47.0 fL 47.0 fL RDW Coefficient of Variation 13.2 % 13.1 % Platelet Count 136 K/uL 155 K/uL Mean Platelet Volume 10.2 fL 10.0 fL Prothrombin Time 10.1 SECONDS Prothromb Time International Ratio 1.0 Sodium Level 140 mmol/L 141 mmol/L Potassium Level 3.5 mmol/L 3.5 mmol/L Chloride Level 104 mmol/L 104 mmol/L Carbon Dioxide Level 33 mmol/L 33 mmol/L Anion Gap 3.0 mmol/L 3.0 mmol/L Blood Urea Nitrogen 10 mg/dl 14 mg/dl Creatinine 0.36 mg/dl 0.49 mg/dl Est Creatinine Clear Calc Drug Dose 129.3 ml/min 95.0 ml/min Estimated GFR () 120.6 108.9 Estimated GFR (Non- 104.0 94.0 BUN/Creatinine Ratio 27.2 27.6 Random Glucose 107 mg/dl 104 mg/dl Calcium Level 8.5 mg/dl 8.3 mg/dl Magnesium Level 2.0 mg/dl 1.9 mg/dl Assessment and Plan Ms. Rodriguez is a 77 y/o who presents after a fall resulting in R radial fx and superior pubic ramus fx Mechanical Fall - R Displaced Radial Fx with Superior Pubic Ramus Fx: - S/P ORIF on 08/22 - PT/OT - recommendations for rehab - plan for [facility] -Stopped IV morphine due to lethargy Metabolic encephalopathy likely from medication hold iv morphine Constipation ordered lactulose Elevated Troponin and Acute [place]: Anterior Infarct - Anticipate this occurred within the last 4 weeks as trops were elevated on admission and trending down - Troponins peaked at 0.794 and trending down - no complains of CP - Atorvastatin increased to 80 mg daily - Metoprolol 12.5 mg BID - Hold on ACEI given BP rather low and continue to monitor - Cardiology following - appreciate recommendations - Plan to implement medical management COPD without Exacerbation with Continue Tobacco Use: - Duonebs PRN Celiac Disease: - Gluten free diet when not NPO Lung Nodules: - CT recommending repeat in 6 months H/O Bouts of Confusion: H/O Idiopathic Hyperammonemia: - Alert and oriented at this time - will monitor DVT Prophylaxis: SCDs Code Status: FULL RESUSCITATION Disposition: - Plan for [facility] - will need cardiology F/U and anticipate F/U echo in a few months - pain is controlled with oral medications and no further interventions by cardiology and orthopedics - would anticipate she would be medically optimal for D/C tomorrow to [facility] Continued [facility] stay due to: multiple IV medications needed Discharge planning: rehab hospital Update: Patient had a large BM in the evening, and patient is more awake. will downgrade to medical floor. Continued [facility] stay due to: multiple IV medications needed Discharge planning: rehab hospital
[2017-08-24] MEDS: OXYCODONE/ACETAMINOPHEN 5-325 TAB PO PRN ×3 (03:20→21:00)
[2017-08-24 05:40] LABS: HEMATOCRIT 34.4 % (37-47); MEAN CELL VOLUME 97.5 fL (80-100); MEAN CORPUSCULAR HGB CONC 32.8 g/dl (32-36); MEAN PLATELET VOLUME 10.2 fL (7.4-10.4); PLATELET COUNT 165 K/uL (130-400); RED BLOOD COUNT 3.53 M/uL (4.2-5.4); WHITE BLOOD COUNT 9.06 K/uL (4.8-10.8)
[2017-08-24 05:50] LABS: INR 0.9 (0.9-1.1); PROTHROMBIN TIME (PATIENT) 9.8 SECONDS (9.0-12.0)
[2017-08-24 06:06] LABS: BUN/CREATININE RATIO 26.8 (10-20); CALCIUM 8.5 mg/dl (8.5-10.1); CREATININE 0.42 mg/dl (0.60-1.20); MAGNESIUM 1.8 mg/dl (1.8-2.4); POTASSIUM 3.1 mmol/L (3.5-5.1)
[2017-08-24 07:57] VITALS: BP 110/64; PULSE 94; TEMP 36.9; O2SAT 95
[2017-08-24] MEDS: FERROUS GLUCONATE 324 MG TAB PO SCH ×3 (09:32→17:43)
[2017-08-24] MEDS: PANTOprazole SOD 40 MG TAB PO SCH ×2 (09:33→20:54)
[2017-08-24] MEDS: MULTIVITAMIN TAB PO SCH (09:33)
[2017-08-24] MEDS: DOCUSATE SODIUM 100 MG CAP PO SCH ×2 (09:33→20:54)
[2017-08-24] MEDS: METOPROLOL TARTRATE 25 MG TAB PO SCH ×2 (09:34→20:55)
[2017-08-24] MEDS: POTASSIUM CHLORIDE 20 MEQ TABCR PO SCH (09:35)
[2017-08-24] MEDS: FoLIC ACID TAB 400 MCG TAB PO SCH (09:35)
[2017-08-24 15:25] VITALS: O2SAT 95
[2017-08-24 15:50] VITALS: BP 137/76; PULSE 119; TEMP 36.8; O2SAT 90
[2017-08-24 16:00] VITALS: PULSE 104; O2SAT 95
[2017-08-24 20:53] VITALS: BP 109/65; PULSE 111; O2SAT 91
[2017-08-24] MEDS: ATORVASTATIN 40 MG TAB PO SCH (20:54)
[2017-08-24] MEDS: SENNA 8.6 MG TAB PO SCH (20:54)
[2017-08-24] MEDS: MIRTAZAPINE TAB 15 MG TAB PO SCH (20:55)
[2017-08-24 22:59] VITALS: BP 103/64; PULSE 82; TEMP 36.8; O2SAT 92
--- NOTE | 2017-08-25 01:11 | Progress Note ---
Subjective Date of Service: Aug 24, 2017. Subjective 77 YO F with no complaints. She states she had a large bowel movement which was formed. No abd. pain, nausea. ROS is negative. Problem List Medical Problems: (1) Abnormal EKG Status: Acute (2) Celiac disease Status: Chronic (3) Colles' fracture of right radius Status: Acute (4) Contusion of right leg Status: Acute (5) Elevated troponin Status: Acute (6) Fall Status: Acute (7) Pelvic fracture Status: Acute Review of Systems Constitutional: No fever Respiratory: No cough, No sputum Cardiac: No chest pain Abdomen: No pain, No nausea Musculoskeletal: No joint pain Psychiatric: No depression symptoms, No anhedonism Endo: No fatigue Skin: No rash, No itch All Other Systems: Reviewed and Negative Medications Current Inpatient Medications Medications (Trade) Dose Ordered Sig/Mari Route Start Time Stop Time Status Last Admin Dose Admin Acetaminophen (Tylenol Tab) 650 mg Q4H PRN PO 08/20/17 19:45 09/19/17 19:44 08/22/17 03:14 650 MG Polyethylene (Miralax Powder Packet) 17 gm DAILY PRN PO 08/20/17 19:45 09/19/17 19:44 Mirtazapine (Remeron Tab) 30 mg HS PO 08/20/17 21:00 09/19/17 20:59 08/25/17 21:30 30 MG Diphenhydramine HCl (Benadryl Cap) 25 mg HS PO 08/20/17 21:00 09/19/17 20:59 08/25/17 21:31 25 MG Folic Acid (Folvite Tab) 800 mcg DAILY PO 08/21/17 09:00 09/20/17 08:59 08/26/17 08:55 800 MCG Pantoprazole Sodium (Protonix Tab) 40 mg BID PO 08/20/17 21:00 09/19/17 20:59 08/26/17 08:54 40 MG Metoprolol Tartrate (Lopressor Tab) 12.5 mg BID PO 08/20/17 21:00 09/19/17 20:59 08/26/17 08:54 12.5 MG Albuterol/ Ipratropium (Duoneb) 3 ml Q6R PRN INH 08/20/17 20:00 1/19/18 19:59 Miscellaneous (Iv Fluids Completed) 1 ea PRN PRN N/A 08/20/17 20:15 08/20/18 20:14 Oxycodone/ Acetaminophen (Percocet 5-325mg Tab) 1-2 TABLETS 1 TABLET ... Q6H PRN PO 08/21/17 18:00 09/04/17 17:59 08/26/17 06:17 2 TAB Bisacodyl (Dulcolax Supp) 10 mg DAILY PRN [place] 08/21/17 18:00 09/20/17 17:59 Sodium Biphosphate/ Sodium Phosphate (Fleet Enema) 132 ml DAILY PRN [place] 08/21/17 18:00 09/20/17 17:59 Senna (Senokot Tab) 17.2 mg HS PO 08/21/17 21:00 09/20/17 20:59 08/24/17 20:54 17.2 MG Docusate Sodium (coLACE CAP) 100 mg BID PO 08/21/17 21:00 09/20/17 20:59 08/26/17 08:56 100 MG Diphenhydramine HCl (Benadryl Cap) 25 mg Q8H PRN PO 08/21/17 18:00 09/20/17 17:59 08/24/17 23:26 25 MG Zolpidem Tartrate (Ambien Tab) 5 mg HSZ PRN PO 08/21/17 18:00 09/20/17 17:59 Multivitamins (Multivitamin Tab) 1 tab QAM PO 08/22/17 09:00 09/21/17 08:59 08/26/17 08:56 1 TAB Ferrous Gluconate (Ferrous Gluconate Tab) 324 mg TIDM PO 08/22/17 07:30 09/21/17 07:29 08/26/17 08:56 324 MG Atorvastatin Calcium (Lipitor Tab) 80 mg HS PO 08/22/17 21:00 09/19/17 20:59 08/25/17 21:30 80 MG Al Hydrox/Mg Hydrox/Simethicone (Maalox Max Susp) 15 ml Q4H PRN PO 08/23/17 20:45 09/19/17 19:44 Magnesium Hydroxide (Milk Of Magnesia Susp) 30 ml Q12H PRN PO 08/23/17 20:45 09/19/17 19:44 Ondansetron HCl (Zofran Inj) 4 mg Q6H PRN IV 08/23/17 20:45 09/19/17 19:44 Potassium Chloride (Klor-Con Pwd) 40 meq QAM PO 08/25/17 09:00 09/24/17 08:59 08/26/17 08:56 40 MEQ Objective Vital Signs Date Time Temp Pulse Resp B/P (MAP) Pulse Ox O2 Delivery O2 Flow Rate FiO2 08/24/17 23:25 Nasal Cannula 2.0 08/24/17 22:59 36.8 82 16 103/64 (77) 92 Nasal Cannula 2.0 08/24/17 20:53 111 109/65 (80) 91 Nasal Cannula 2.0 08/24/17 16:00 104 95 Nasal Cannula 2.0 08/24/17 15:50 36.8 119 18 137/76 (96) 90 Nasal Cannula 2.0 08/24/17 15:25 95 Nasal Cannula 2.0 08/24/17 07:57 36.9 94 18 110/64 (79) 95 Room Air 08/24/17 07:50 Nasal Cannula 2.0 Physical Exam Comments: General Appearance: WD/WN, no apparent distress Eyes: sclerae normal ENT: hearing grossly normal Neck: supple, no JVD, trachea midline Respiratory/Chest: lungs clear, normal breath sounds, no respiratory distress, no accessory muscle use Cardiovascular: regular rate, rhythm, no gallop, no murmur Abdomen: normal bowel sounds, non tender, soft Extremities: no pedal edema, no calf tenderness, + pertinent finding (R wrist with MARK wrap C/D/I - motor function intact to fingers; good perfusion and fingers warm to touch) Neurologic/Psychiatric: alert Skin: normal color, warm/dry Laboratory Results Last 24 Hours Test 08/24/17 05:07 White Blood Count 9.06 K/uL Red Blood Count 3.53 M/uL Hemoglobin 11.3 g/dL Hematocrit 34.4 % Mean Corpuscular Volume 97.5 fL Mean Corpuscular Hemoglobin 32.0 pg Mean Corpuscular Hemoglobin Concent 32.8 g/dl RDW Standard Deviation 47.6 fL RDW Coefficient of Variation 13.3 % Platelet Count 165 K/uL Mean Platelet Volume 10.2 fL Prothrombin Time 9.8 SECONDS Prothromb Time International Ratio 0.9 Sodium Level 139 mmol/L Potassium Level 3.1 mmol/L Chloride Level 104 mmol/L Carbon Dioxide Level 34 mmol/L Anion Gap 1.0 mmol/L Blood Urea Nitrogen 11 mg/dl Creatinine 0.42 mg/dl Est Creatinine Clear Calc Drug Dose 110.9 ml/min Estimated GFR () 114.6 Estimated GFR (Non- 98.9 BUN/Creatinine Ratio 26.8 Random Glucose 113 mg/dl Calcium Level 8.5 mg/dl Magnesium Level 1.8 mg/dl Assessment and Plan Ms. Rodriguez is a 77 y/o who presents after a fall resulting in R radial fx and superior pubic ramus fx Mechanical Fall - R Displaced Radial Fx with Superior Pubic Ramus Fx: - S/P ORIF on 08/22 - PT/OT - recommendations for rehab - plan for [facility] -Stopped IV morphine due to lethargy -Mental status has improved. Metabolic encephalopathy likely from medication hold iv morphine Constipation Had large Bowel movement Elevated Troponin and Acute [place]: Anterior Infarct - Anticipate this occurred within the last 4 weeks as trops were elevated on admission and trending down - Troponins peaked at 0.794 and trending down - no complains of CP - Atorvastatin increased to 80 mg daily - Metoprolol 12.5 mg BID - Hold on ACEI given BP rather low and continue to monitor - Cardiology following - appreciate recommendations - Plan to implement medical management COPD without Exacerbation with Continue Tobacco Use: - Duonebs PRN Celiac Disease: - Gluten free diet when not NPO Lung Nodules: - CT recommending repeat in 6 months H/O Bouts of Confusion: H/O Idiopathic Hyperammonemia: - Alert and oriented at this time - will monitor DVT Prophylaxis: SCDs Code Status: FULL RESUSCITATION Disposition: - Plan for [facility] - will need cardiology F/U and anticipate F/U echo in a few months - pain is controlled with oral medications and no further interventions by cardiology and orthopedics -is medically able to be discharged but no beds available, Continued [facility] stay due to: multiple IV medications needed Discharge planning: rehab inpatient Continued [facility] stay due to: multiple IV medications needed Discharge planning: rehab hospital
[2017-08-25] MEDS: OXYCODONE/ACETAMINOPHEN 5-325 TAB PO PRN ×3 (03:04→22:35)
[2017-08-25 05:49] LABS: INR 0.9 (0.9-1.1); PROTHROMBIN TIME (PATIENT) 9.8 SECONDS (9.0-12.0)
[2017-08-25 06:55] VITALS: BP 97/59; PULSE 88; TEMP 36.8; O2SAT 93
[2017-08-25] MEDS: MULTIVITAMIN TAB PO SCH (08:54)
[2017-08-25] MEDS: FERROUS GLUCONATE 324 MG TAB PO SCH ×3 (08:54→18:45)
[2017-08-25] MEDS: DOCUSATE SODIUM 100 MG CAP PO SCH ×2 (08:54→21:00)
[2017-08-25] MEDS: PANTOprazole SOD 40 MG TAB PO SCH ×2 (08:55→21:30)
[2017-08-25] MEDS: FoLIC ACID TAB 400 MCG TAB PO SCH (08:55)
[2017-08-25] MEDS: METOPROLOL TARTRATE 25 MG TAB PO SCH ×2 (08:55→21:29)
[2017-08-25 08:58] VITALS: BP 105/63
[2017-08-25] MEDS: POTASSIUM CHLORIDE PWD 20 MEQ PACK PO SCH (09:28)
[2017-08-25 15:27] VITALS: BP 114/65; PULSE 95; TEMP 36.8; O2SAT 94
[2017-08-25] MEDS: SENNA 8.6 MG TAB PO SCH (21:00)
[2017-08-25 21:26] VITALS: BP 123/68; PULSE 111
[2017-08-25] MEDS: MIRTAZAPINE TAB 15 MG TAB PO SCH (21:30)
[2017-08-25] MEDS: ATORVASTATIN 40 MG TAB PO SCH (21:30)
--- NOTE | 2017-08-25 22:09 | Progress Note ---
Subjective Date of Service: Aug 25, 2017. Subjective Pt evaluation today including: conversation w/ patient, physical exam No complaints. Patient wants to be discharged. Problem List Medical Problems: (1) Abnormal EKG Status: Acute (2) Celiac disease Status: Chronic (3) Colles' fracture of right radius Status: Acute (4) Contusion of right leg Status: Acute (5) Elevated troponin Status: Acute (6) Fall Status: Acute (7) Pelvic fracture Status: Acute Review of Systems Constitutional: No fever, No chills Respiratory: No cough, No sputum Cardiac: No chest pain, No orthopnea Abdomen: No pain, No nausea Psychiatric: No depression symptoms Endo: No fatigue Skin: No rash, No itch All Other Systems: Reviewed and Negative Medications Current Inpatient Medications Medications (Trade) Dose Ordered Sig/Mari Route Start Time Stop Time Status Last Admin Dose Admin Acetaminophen (Tylenol Tab) 650 mg Q4H PRN PO 08/20/17 19:45 09/19/17 19:44 08/22/17 03:14 650 MG Polyethylene (Miralax Powder Packet) 17 gm DAILY PRN PO 08/20/17 19:45 09/19/17 19:44 Mirtazapine (Remeron Tab) 30 mg HS PO 08/20/17 21:00 09/19/17 20:59 08/25/17 21:30 30 MG Diphenhydramine HCl (Benadryl Cap) 25 mg HS PO 08/20/17 21:00 09/19/17 20:59 08/25/17 21:31 25 MG Folic Acid (Folvite Tab) 800 mcg DAILY PO 08/21/17 09:00 09/20/17 08:59 08/26/17 08:55 800 MCG Pantoprazole Sodium (Protonix Tab) 40 mg BID PO 08/20/17 21:00 09/19/17 20:59 08/26/17 08:54 40 MG Metoprolol Tartrate (Lopressor Tab) 12.5 mg BID PO 08/20/17 21:00 09/19/17 20:59 08/26/17 08:54 12.5 MG Albuterol/ Ipratropium (Duoneb) 3 ml Q6R PRN INH 08/20/17 20:00 09/19/17 19:59 Miscellaneous (Iv Fluids Completed) 1 ea PRN PRN N/A 08/20/17 20:15 08/20/18 20:14 Oxycodone/ Acetaminophen (Percocet 5-325mg Tab) 1-2 TABLETS 1 TABLET ... Q6H PRN PO 08/21/17 18:00 09/04/17 17:59 08/26/17 06:17 2 TAB Bisacodyl (Dulcolax Supp) 10 mg DAILY PRN [place] 08/21/17 18:00 09/20/17 17:59 Sodium Biphosphate/ Sodium Phosphate (Fleet Enema) 132 ml DAILY PRN [place] 08/21/17 18:00 09/20/17 17:59 Senna (Senokot Tab) 17.2 mg HS PO 08/21/17 21:00 09/20/17 20:59 08/24/17 20:54 17.2 MG Docusate Sodium (coLACE CAP) 100 mg BID PO 08/21/17 21:00 09/20/17 20:59 08/26/17 08:56 100 MG Diphenhydramine HCl (Benadryl Cap) 25 mg Q8H PRN PO 08/21/17 18:00 09/20/17 17:59 08/24/17 23:26 25 MG Zolpidem Tartrate (Ambien Tab) 5 mg HSZ PRN PO 08/21/17 18:00 09/20/17 17:59 Multivitamins (Multivitamin Tab) 1 tab QAM PO 08/22/17 09:00 09/21/17 08:59 08/26/17 08:56 1 TAB Ferrous Gluconate (Ferrous Gluconate Tab) 324 mg TIDM PO 08/22/17 07:30 09/21/17 07:29 08/26/17 08:56 324 MG Atorvastatin Calcium (Lipitor Tab) 80 mg HS PO 08/22/17 21:00 09/19/17 20:59 08/25/17 21:30 80 MG Al Hydrox/Mg Hydrox/Simethicone (Maalox Max Susp) 15 ml Q4H PRN PO 08/23/17 20:45 09/19/17 19:44 Magnesium Hydroxide (Milk Of Magnesia Susp) 30 ml Q12H PRN PO 08/23/17 20:45 1/19/18 19:44 Ondansetron HCl (Zofran Inj) 4 mg Q6H PRN IV 08/23/17 20:45 09/19/17 19:44 Potassium Chloride (Klor-Con Pwd) 40 meq QAM PO 08/25/17 09:00 09/24/17 08:59 08/26/17 08:56 40 MEQ Objective Vital Signs Date Time Temp Pulse Resp B/P (MAP) Pulse Ox O2 Delivery O2 Flow Rate FiO2 08/25/17 21:26 111 123/68 (86) 08/25/17 15:27 36.8 95 18 114/65 (81) 94 Nasal Cannula 2.0 08/25/17 08:58 105/63 (77) 08/25/17 07:25 Nasal Cannula 2.0 08/25/17 06:55 36.8 88 18 97/59 (72) 93 Nasal Cannula 2.0 08/24/17 23:25 Nasal Cannula 2.0 08/24/17 22:59 36.8 82 16 103/64 (77) 92 Nasal Cannula 2.0 Laboratory Results Last 24 Hours Test 08/25/17 05:24 Prothrombin Time 9.8 SECONDS Prothromb Time International Ratio 0.9 Assessment and Plan Ms. Rodriguez is a 77 y/o who presents after a fall resulting in R radial fx and superior pubic ramus fx No change in management as patient is pending rehab. Mechanical Fall - R Displaced Radial Fx with Superior Pubic Ramus Fx: - S/P ORIF on 08/22 - PT/OT - recommendations for rehab - plan for [facility] -Stopped IV morphine due to lethargy -Mental status has improved. Metabolic encephalopathy likely from medication hold iv morphine. Resolved. Constipation resolved. Had large Bowel movement. Elevated Troponin and Acute [place]: Anterior Infarct - Anticipate this occurred within the last 4 weeks as trops were elevated on admission and trending down - Troponins peaked at 0.794 and trending down - no complains of CP - Atorvastatin increased to 80 mg daily - Metoprolol 12.5 mg BID - Hold on ACEI given BP rather low and continue to monitor - Cardiology following - appreciate recommendations - Plan to implement medical management COPD without Exacerbation with Continue Tobacco Use: - Duonebs PRN Celiac Disease: - Gluten free diet when not NPO Lung Nodules: - CT recommending repeat in 6 months H/O Bouts of Confusion: H/O Idiopathic Hyperammonemia: - Alert and oriented at this time - will monitor DVT Prophylaxis: SCDs Code Status: FULL RESUSCITATION Disposition: - Plan for [facility] - will need cardiology F/U and anticipate F/U echo in a few months - pain is controlled with oral medications and no further interventions by cardiology and orthopedics -is medically able to be discharged but no beds available, Continued [facility] stay due to: multiple IV medications needed Discharge planning: rehab Continued [facility] stay due to: multiple IV medications needed Discharge planning: rehab hospital
[2017-08-25 23:02] VITALS: BP 111/55; PULSE 98; TEMP 36.3; O2SAT 96
[2017-08-26] MEDS: OXYCODONE/ACETAMINOPHEN 5-325 TAB PO PRN ×2 (06:17→13:17)
[2017-08-26 06:43] LABS: INR 0.9 (0.9-1.1); PROTHROMBIN TIME (PATIENT) 9.8 SECONDS (9.0-12.0)
[2017-08-26 07:00] LABS: BUN/CREATININE RATIO 24.4 (10-20); CALCIUM 8.5 mg/dl (8.5-10.1); CREATININE 0.47 mg/dl (0.60-1.20); POTASSIUM 3.6 mmol/L (3.5-5.1)
[2017-08-26 07:07] VITALS: BP 104/62; PULSE 91; TEMP 37.2; O2SAT 94
[2017-08-26] MEDS: METOPROLOL TARTRATE 25 MG TAB PO SCH (08:54)
[2017-08-26] MEDS: PANTOprazole SOD 40 MG TAB PO SCH (08:54)
[2017-08-26] MEDS: FoLIC ACID TAB 400 MCG TAB PO SCH (08:55)
[2017-08-26] MEDS: MULTIVITAMIN TAB PO SCH (08:56)
[2017-08-26] MEDS: DOCUSATE SODIUM 100 MG CAP PO SCH (08:56)
[2017-08-26] MEDS: FERROUS GLUCONATE 324 MG TAB PO SCH ×2 (08:56→13:12)
[2017-08-26] MEDS: POTASSIUM CHLORIDE PWD 20 MEQ PACK PO SCH (08:56)
[2017-08-26] MEDS ORDERED: METHYLPREDNISOLONE IV 60 MG in SYRINGE 0 ML IV ONE (12:30)
[2017-08-26] MEDS ORDERED: ULT50X PO (12:44)
[2017-08-26] MEDS ORDERED: PRD10 PO (12:44)
[2017-08-26] MEDS ORDERED: LPR25 PO (12:44)
[2017-08-26] MEDS ORDERED: FRRG PO (12:44)
[2017-08-26] MEDS ORDERED: LPT40 PO (12:44)
[2017-08-26] MEDS ORDERED: DIPH25CA5 PO (12:44)
[2017-08-26] MEDS ORDERED: ACET-1047 PO (12:51)
--- NOTE | 2017-08-26 12:53 | Discharge Instructions ---
Discharge Instructions Date of Service Aug 26, 2017. Admission Reason for Admission: Fall, Multiple Fractures Discharge Discharge Diagnosis / Problem: Radial fracture, superior pubic ramus fracture post fall Discharge Goals Goal(s): Improve function Activity Recommendations Activity Level: Assistance Required Therapies: Physical Therapy, Occupational Therapy .ACTIVITY RECOMMENDATIONS: * Avoid lifting anything with your right arm until your first post operative visit. * You may weight bear as you tolerate on your right lower extremity with assistance, platform walker. SPECIAL CARE INSTRUCTIONS: * Your bandage should be left in place until your follow up appointment. * Keep dressing clean and dry at all times, do not get wet. * Some drainage onto the dressing may occur. This is normal. * If the bandage feels excessively tight, you may loosen the elastic bandage. Then call the physician's office for further instructions. * If possible, keep your hand elevated above the level of your heart for the first 2 post operative days. You may use a sling if necessary. * You should move your fingers regularly (50-100 motions per hour) unless otherwise instructed. * You can move your elbow with gentle range of motion regularly. SPECIAL PRECAUTIONS: * If you notice increased drainage, fever over 101 degrees F. or severe, unremitting pain, call your physician/office at . * You may have been prescribed pain medication. If you experience nausea and/or skin rash, discontinue this medication and contact our office for an alternative medication. Additional Information Patient informed of condition: Yes Advance Directives: No DNR: No Level of Care: Acute Rehab Communicable Disease: No Prognosis: Stable Oxygen at (LPM): 2L nc - can be weaned off [place] Catheter: No Instructions / Follow-Up Instructions / Follow-Up Follow up with ortho in the next two weeks (patient's family says appointment has been scheduled) Follow up with cardiology within the next week. Patient had a poor reaction to opioids with increased lethargy. She also has a full body rash from unknown antagonist. Discontinued oxycodone and replaced with tylenol and tramadol, would avoid tramadol as much as possible. Follow up with pcp for adrenal nodule Current Hospital Diet Patient's current hospital diet: Regular Diet, Gluten Free Diet Discharge Diet Recommended Diet: Gluten Free Diet Procedures Procedures Performed: Right Open Reduction Internal Fixation Distal Radius Fracture 3 part intra-articular Pending Studies Studies pending at discharge: no Laboratory Results 08/24/17 05:07 08/26/17 05:50 Test 08/20/17 17:05 08/20/17 17:25 08/20/17 21:05 08/21/17 06:36 Total Bilirubin 0.7 mg/dl (0.2-1) Direct Bilirubin 0.1 mg/dl (0-0.2) Aspartate Amino Transf (AST/SGOT) 17 U/L (15-37) Alanine Aminotransferase (ALT/SGPT) 20 U/L (12-78) Alkaline Phosphatase 53 U/L (45-117) Total Protein 7.1 gm/dl (6.4-8.2) Albumin 4.2 gm/dl (3.4-5.0) Lipase 234 U/L (73-393) Immature Granulocyte % (Auto) 0.4 % White Blood Count 14.22 K/uL (4.8-10.8) Red Blood Count 4.57 M/uL (4.2-5.4) Hemoglobin 14.9 g/dL (12.0-16.0) Hematocrit 44.0 % (37-47) Mean Corpuscular Volume 96.3 fL (80-100) Mean Corpuscular Hemoglobin 32.6 pg (25-34) Mean Corpuscular Hemoglobin Concent 33.9 g/dl (32-36) Platelet Count 188 K/uL (130-400) Mean Platelet Volume 10.6 fL (7.4-10.4) Neutrophils (%) (Auto) 86.8 % Lymphocytes (%) (Auto) 4.7 % Monocytes (%) (Auto) 7.8 % Eosinophils (%) (Auto) 0.1 % Basophils (%) (Auto) 0.2 % Neutrophils # (Auto) 12.34 K/uL (1.4-6.5) Lymphocytes # (Auto) 0.67 K/uL (1.2-3.4) Monocytes # (Auto) 1.11 K/uL (0.11-0.59) Eosinophils # (Auto) 0.01 K/uL (0-0.5) Basophils # (Auto) 0.03 K/uL (0-0.2) Immature Granulocyte # (Auto) 0.06 K/uL (0.00-0.02) Activated Partial Thromboplast Time 25.2 SECONDS (21.0-31.0) Partial Thromboplastin Ratio 1.0 Ammonia 25.8 umol/L (11-32) Urine Color DK YELLOW Urine Appearance CLEAR (CLEAR) Urine pH 7.5 (4.5-7.5) Urine Specific [place] 1.022 (1.000-1.030) Urine Protein NEG (NEG) Urine Glucose (UA) NEG (NEG) Urine Ketones NEG (NEG) Urine Occult Blood NEG (NEG) Urine Nitrite NEG (NEG) Urine Bilirubin NEG (NEG) Urine Urobilinogen NEG (NEG) Urine Leukocyte Esterase NEG (NEG) Urine WBC (Auto) 0 /hpf (0-5) Urine RBC (Auto) 0-4 /hpf (0-4) Urine Hyaline Casts (Auto) 0 /lpf (0-5) Urine Epithelial Cells (Auto) 0-5 /lpf (0-5) Urine Bacteria (Auto) NEG (NEG) Test 08/21/17 07:55 08/24/17 05:07 08/26/17 05:50 Troponin I 0.586 ng/ml (0-0.045) Red Blood Count 3.53 M/uL (4.2-5.4) Mean Corpuscular Volume 97.5 fL (80-100) Mean Corpuscular Hemoglobin 32.0 pg (25-34) Mean Corpuscular Hemoglobin Concent 32.8 g/dl (32-36) RDW Standard Deviation 47.6 fL (36.4-46.3) RDW Coefficient of Variation 13.3 % (11.5-14.5) Mean Platelet Volume 10.2 fL (7.4-10.4) Magnesium Level 1.8 mg/dl (1.8-2.4) Prothrombin Time 9.8 SECONDS (9.0-12.0) Prothromb Time International Ratio 0.9 (0.9-1.1) Anion Gap 4.0 mmol/L (3-11) Est Creatinine Clear Calc Drug Dose 99.1 ml/min Estimated GFR () 110.4 Estimated GFR (Non- 95.3 BUN/Creatinine Ratio 24.4 (10-20) Calcium Level 8.5 mg/dl (8.5-10.1) Medical Emergencies . Who to Call and When: Medical Emergencies: If at any time you feel your situation is an emergency, please call 911 immediately. . Non-Emergent Contact Non-Emergency issues call your: Primary Care Provider Call Non-Emergent contact if: you have any medication questions . 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 "Provider Documentation" section prepared by Nano Bagley. . [employer] Recommendations [employer]r Recommendations: ACTIVITY RECOMMENDATIONS: * Avoid lifting anything with your right arm until your first post operative visit. * You may weight bear as you tolerate on your right lower extremity with assistance, platform walker. SPECIAL CARE INSTRUCTIONS: * Your bandage should be left in place until your follow up appointment. * Keep dressing clean and dry at all times, do not get wet. * Some drainage onto the dressing may occur. This is normal. * If the bandage feels excessively tight, you may loosen the elastic bandage. Then call the physician's office for further instructions. * If possible, keep your hand elevated above the level of your heart for the first 2 post operative days. You may use a sling if necessary. * You should move your fingers regularly (50-100 motions per hour) unless otherwise instructed. * You can move your elbow with gentle range of motion regularly. SPECIAL PRECAUTIONS: * If you notice increased drainage, fever over 101 degrees F. or severe, unremitting pain, call your physician/office at . * You may have been prescribed pain medication. If you experience nausea and/or skin rash, discontinue this medication and contact our office for an alternative medication. FOLLOW UP VISIT: If appointment is not already scheduled: Please call [facility] to make a follow-up appointment after your surgery at , 10-14 days after surgery. Core Measure Problem Core Measures: AMI AMI Core Measures Reason no ASA as I/P: Treatment provided - N/A Reason no ASA at D/C: Treatment provided - N/A Reason no statin as I/P: Treatment provided - N/A Reason no statin at D/C: Treatment provided - N/A
[2017-08-26 13:02] VITALS: BP 104/62; PULSE 91; TEMP 37.2; O2SAT 94
[2017-08-26 13:20] VITALS: O2SAT 87
[2017-08-26 13:22] VITALS: O2SAT 92
--- NOTE | 2017-08-26 17:52 | Discharge Summary ---
Discharge Summary Date of Service Aug 26, 2017. Discharge Summary Admission Date: Aug 21, 2017 at 09:48 Discharge Date: Aug 26, 2017 Discharge Disposition: Rehab ([facility]) Principal Diagnosis: Radial, superior pubic ramus fracture, subacute [facility] Problems/Secondary Diagnoses: CAD Chronic systolic CHF Pulmonary HTN celiac disease osteopenia COPD smoker HPL History of idiopathic ammonemia CAD adrenal nodule Pulmonary nodules Allergic dermatitis Immunizations: Have You Had Influenza Vaccine: No History of Tetanus Vaccine?: WITHIN LAST 10 YEARS Tetanus Immunization Date: Apr 14, 2006 History of Pneumococcal: Yes Pneumococcal Date: Jun 18, 2005 History of Hepatitis B Vaccine: No Procedures: R WRIST 2 VIEWS CLINICAL HISTORY: 77 years-old Female presenting with RT ORIF. TECHNIQUE: 2 fluoroscopic spot image(s) obtained as part of an intraoperative procedure. COMPARISON: 08/20/2017. FINDINGS/IMPRESSION: Interval buttress and screw fixation of the distal radial fracture. There has been interval improved alignment, now near-anatomic, at the fracture plane. Expected soft tissue emphysema. The distal radial ulnar joint is grossly intact. Fracture of the ulnar styloid may be present. Please see surgical report for further details. Fluoroscopy dosage (mGy): 1.11. Fluoroscopy time: 69.6 seconds. Number of fluoroscopic spot images: 2. (CHEST) THORAX WITHOUT CLINICAL HISTORY: 77 years-old Female presenting with no air entry into L base. TECHNIQUE: Multidetector CT imaging of the chest was performed without the use of intravenous contrast. IV contrast: None. A dose lowering technique was used consistent with the principles of ALARA (as low as reasonably achievable). COMPARISON: 11/17/2015. CT DOSE (mGy.cm): The estimated cumulative dose is 222.31 mGy.cm. FINDINGS: Ux Researcher topogram: Unremarkable. On soft tissue windows, normal thyroid and thoracic inlet. No axillary, supraclavicular, or mediastinal lymphadenopathy. Evaluation of the oriana limited without intravenous contrast. Atherosclerosis of the aorta. Normal heart size. It coronary artery and mitral annular calcification. No pericardial or pleural effusion. Few hypodensities in the liver indeterminate but likely hepatic cysts. Indeterminate 2.1 cm right adrenal gland nodule. Moderate hiatal hernia. Fluid noted throughout the mildly distended esophagus. On lung windows, chronic elevation of the left hemidiaphragm. Mild apical emphysema. Solid right apical nodule measures 6 mm (series 4 image 31). Previously this appeared less nodular and more consistent with apical scarring, which is also present solid 7 mm central nodule in the left upper lobe (series 4 image 122), unchanged. Minimal dependent changes at the left lung base likely atelectasis. Volume loss in the left lower lobe secondary to the moderate hilar hernia. Airways patent. On bone windows, slightly exaggerated thoracic kyphosis. Mild degenerative change. IMPRESSION: 1. Moderate hiatal hernia with left lower lobe atelectasis and chronic left hemidiaphragm elevation. The degree of atelectatic change may have slightly increased since 2016. This likely accounts for the clinical findings. 2. Moderate hiatal hernia with esophagus mildly dilated with fluid and debris. 3. Indeterminate 2.1 cm right adrenal nodule. This is not definitively characterized as a benign adenoma by density. Further evaluation is clinically indicated. Correlate with a history of underlying malignancy. 4. Stable solid 7 mm left upper lobe nodule, which is consistent with a benign etiology given its stability. 5. Solid right apical 6 mm nodule. Previously the right apical nodule appeared more consistent with apical scarring, which is still a possibility. Follow-up per Amanda Society 2017 recommendations below. The report will be called/faxed according to standard departmental protocol. Please refer to below summary of Fleischner Society 2017 recommendations for follow-up of incidental CT nodules (H Melissa et al. Guidelines for management of incidental pulmonary nodules detected on CT images: From the Fleischner Society 2017. Radiology 2017; 284: 228-243.) SOLID NODULES Single nodule; size < 6 mm * Low risk patients: No routine follow-up * High risk patients: Optional CT at 12 months Single nodule; size 6-8 mm * Low risk patients: CT at 6-12 months, then consider CT at 18-24 months * High risk patients: CT at 6-12 months, then at 18-24 months Single nodule; size > 8 mm * Either low or high risk patients: Considered CT at 3 months, PET/CT, or tissue sampling Multiple nodules; size < 6 mm * Low risk patients: No routine follow up * High risk patients: Optional CT at 12 months Multiple nodules; size 6-8 mm * Low risk patients: CT at 3-6 months, then consider CT at 18-24 months * High risk patients: CT at 3-6 months, then at 18-24 months Multiple nodules; size > 8 mm * Low risk patients: CT at 3-6 months, then consider at 18-24 months * High risk patients: CT at 3-6 months, then at 18-24 months CERVICAL SPINE W/O CLINICAL HISTORY: 77 years-old Female presenting with fall. TECHNIQUE: Multidetector CT of the cervical spine was performed without the use of intravenous contrast. IV contrast: None. A dose lowering technique was used consistent with the principles of ALARA (as low as reasonably achievable). COMPARISON: None. CT DOSE (mGy.cm): The estimated cumulative dose is 990.25. FINDINGS: Ux Researcher topogram: Unremarkable. Normal cervical lordosis. Mild vertebral body height loss of C5 and C6 likely degenerative in etiology. No acute fracture or subluxation. Multilevel degenerative changes with disc osteophyte complexes noted at C4-5 through 7. Bony spurring posteriorly at these levels. No significant osseous neural foraminal or spinal canal narrowing. Degenerative changes also noted at the atlantodental articulation. Limited intracranial evaluation within normal limits. Paraspinal soft tissues remarkable for atherosclerosis. Emphysema at the lung apices with a solid 6 mm nodule (series 4 image 76). IMPRESSION: 1. No acute osseous injury of the cervical spine. 2. Multilevel degenerative changes in the mid to lower cervical spine. 3. 6 mm solid nodule at the right apex. Follow-up per Amanda Society 2017 recommendations below. CHEST 2 VIEWS ROUTINE CLINICAL HISTORY: 77 years-old Female presenting with fall. TECHNIQUE: PA and lateral views of the chest were obtained. COMPARISON: 11/07/2015. FINDINGS: Scoliotic curvature of the spine limits evaluation. Atherosclerosis of aortic arch. Cardiac silhouette may be top normal in size or mildly enlarged. Nodular opacities in the left lung again noted. No large pleural effusion or pneumothorax effusion. Osteopenia suspected. Degenerative changes and scoliotic curvature of the spine. Degenerative changes of the acromioclavicular joints. Hiatal hernia suspected. IMPRESSION: 1. Persistent nodular opacities in the left lung. 2. Examination limited by scoliotic curvature resulting in malpositioning. Otherwise no evidence of acute cardiopulmonary disease. R TIBIA/FIBULA 2 VIEWS ROUTINE, R FEMUR 2 VIEWS ROUTINE CLINICAL HISTORY: 77 years-old Female presenting with fall. TECHNIQUE: Frontal and lateral views of the right femur and right lower leg were obtained. COMPARISON: None. FINDINGS: Right femur: Right hip joint congruent. Knee joint congruent. Osteopenia may be present. No acute fracture or malalignment. Degenerative changes of the knee including chondrocalcinosis. No knee joint effusion. Right lower leg: A few lucent lesions suggested in the medullary cavity of the tibia and fibula, indeterminate. No acute fracture or malalignment. Ankle mortise intact. Osteopenia suspected. IMPRESSION: 1. No acute osseous injury of the right femur right lower leg. 2. Questionable lucent lesions in the medullary cavity of the tibia and fibula. This raises concern for possible multiple myeloma, although the presence of osteopenia may be resulting in a heterogeneous appearance of bone marrow. HEAD WITHOUT CONTRAST (CT) CLINICAL HISTORY: 77 years-old Female with fakll. Acute head injury status post fall TECHNIQUE: Multiple axial CT images of the head were obtained without contrast. A dose lowering technique was utilized adhering to the principles of ALARA. CT DOSE: 990.25 mGy.cm COMPARISON: CT head 04/13/2006. FINDINGS: No acute intracranial hemorrhage, midline shift, intracranial mass, hydrocephalus, territorial ischemia or abnormal extra-axial collection. Mild to moderate atrophy with ex vacuo ventriculomegaly. Senescent calcifications of the left lentiform nucleus. Ill-defined areas of low-attenuation within the subcortical and periventricular white matter compatible with chronic microvascular ischemic changes, progressed from comparison. The calvarium is intact. The paranasal sinuses, mastoid air cells, and middle ear cavities are clear. IMPRESSION: 1. No acute intracranial abnormality or calvarial fracture. 2. Atrophy with chronic microvascular ischemic changes, progressed from comparison study 04/13/2006. PELVIS 1 OR 2 VIEW ROUTINE CLINICAL HISTORY: 77 years-old Female presenting with fall. TECHNIQUE: Single frontal view of the pelvis was obtained. COMPARISON: None. FINDINGS: Osteopenia suspected. Pubic symphysis and sacral leg joints congruent. Hip joints congruent. No femoral neck fracture. Osseous irregularity of the superior right pubic ramus noted. Bony pelvis otherwise within normal limits. Degenerative changes of the lumbar spine. Marked stool burden. IMPRESSION: Osteopenia with possible fracture of the superior right pubic ramus. [~ rep ct add3]] R TIBIA/FIBULA 2 VIEWS ROUTINE, R FEMUR 2 VIEWS ROUTINE CLINICAL HISTORY: 77 years-old Female presenting with fall. TECHNIQUE: Frontal and lateral views of the right femur and right lower leg were obtained. COMPARISON: None. FINDINGS: Right femur: Right hip joint congruent. Knee joint congruent. Osteopenia may be present. No acute fracture or malalignment. Degenerative changes of the knee including chondrocalcinosis. No knee joint effusion. Right lower leg: A few lucent lesions suggested in the medullary cavity of the tibia and fibula, indeterminate. No acute fracture or malalignment. Ankle mortise intact. Osteopenia suspected. IMPRESSION: 1. No acute osseous injury of the right femur right lower leg. 2. Questionable lucent lesions in the medullary cavity of the tibia and fibula. This raises concern for possible multiple myeloma, although the presence of osteopenia may be resulting in a heterogeneous appearance of bone marrow. R WRIST MIN 3 VIEWS ROUTINE CLINICAL HISTORY: 77 years-old Female presenting with fall. TECHNIQUE: Frontal, oblique, and lateral views of the right wrist were obtained. COMPARISON: None. FINDINGS: Mildly displaced transversely oriented fracture of the distal radial metaphysis without significant angulation. There is a millimeters of dorsal displacement of the distal fracture fragment and carpus. Radiocarpal articulations preserved, evidence of an extra-articular fracture. The ulnar styloid is not clearly visible, possibly fractured. The distal radial ulnar joints is not well assessed. Underlying osteopenia suspected. Diffuse soft tissue swelling. No subcutaneous gas. IMPRESSION: Displaced distal radial metaphyseal fracture without significant angulation. Suspected underlying osteopenia. Right Open Reduction Internal Fixation Distal Radius Fracture 3 part intra-articular ECHO: Left ventricular systolic function is moderately reduced with LVEF 35-40% * There are regional wall motion abnormalities as specified. * Aortic valve sclerosis mild, without significant aortic valvular stenosis. * Right ventricular systolic pressure is elevated at 40-50mmHg. * There is trace mitral regurgitation. * The inferior vena cava is mildly dilated. Consultations: Orthopedics Cardiology Medication Reconciliation New Medications: Prednisone (Prednisone) 10 Mg Tab 10 MG PO DAILY for 8 Days, #26 TAB Steroid taper 60 mg x 2 40 mg x 2 20 mg x 2 10 mg x 2 Tramadol HCl (Tramadol HCl) 50 Mg Tab 25 MG PO Q6HWA PRN for Pain for 5 Days, #10 TAB Acetaminophen (Mapap) 325 Mg Tab 650 MG PO Q4H PRN for Pain or Fever for 7 Days, #56 TAB Atorvastatin (Atorvastatin Calcium) 40 Mg Tab 80 MG PO HS for 30 Days, #30 TAB Diphenhydramine Hcl (Benadryl) 25 Mg Cap 25 MG PO Q8H PRN for Itching for 7 Days, #21 CAP Ferrous Gluconate (Ferrous Gluconate) 324 Mg Tab 324 MG PO TIDM for 14 Days, #42 TAB Metoprolol Tartrate (Lopressor) 25 Mg Tab 12.5 MG PO BID for 30 Days, #30 TAB Continued Medications: Aspirin (Aspirin) 325 Mg Tab 325 MG PO DAILY Cholecalciferol (Vitamin D3) 1,000 Unit Tab 1000 INTER.UNIT PO DAILY, TAB Folic Acid (Folic Acid) 800 Mcg Tab 800 MCG PO DAILY Ipratropium-Albuterol (Combivent Respimat) 1 Aer Aer 1 PUFF INH QID PRN for Shortness of Breath, INH Mirtazapine (Remeron) 30 Mg Tab 30 MG PO HS, TAB Multiple Vitamins W/ Minerals (Centrum Silver 50+Women) 1 Tab Tab 1 TAB PO DAILY Omeprazole (Prilosec) 40 Mg Cap 40 MG PO BID, CAP Potassium Ext Rel (Klor-Con) 20 Meq Tabcr 20 MEQ PO DAILY, TAB Discontinued Medications: Atorvastatin (Lipitor) 20 Mg Tab 20 MG PO HS, TAB Diphenhydramine Hcl (Diphenhydramine Hcl) 25 Mg Tab 25 MG PO HS Discharge Exam ROS Constitutional: no chills, aches, sweats or fever Respiratory: no sob,cough, sputum, or wheezing Cardiac: no chest pain, palpitations, edema, orthopnea or lightheadedness GI: no abdominal pain, nausea, vomiting, diarrhea or constipation : no dysuria or hesitancy Extremities: no joint pain or weakness Skin: rash trunk and extremities PE General: no distress Eyes: normal inspection, PERLL Respiratory: chest non tender, clear to auscultation, normal breath sounds, no respiratory distress, no accessory muscle use Cardiac: regular rate and rhythm, no rub or gallop, no murmur, no edema, no jvd GI/: active bowel sounds, no abd pain or tenderness, soft, non distended Extremities: normal range of motion, normal strength, non tender Neuro/Psych: alert and oriented x 3, normal mood and affect Skin: coalescing maculo papular rash over extremities and trunk, sparing neck or face. Hospital Course 77 y/o F Hx osteopenia, celiac disease, COPD, smoker, HPL. Pt presented after a fall on her L side. She denied any head trauma. A skeletal survey revealed a displaced radial fracture in addition to a superior pubic ramus fracture. Initial labs revealed an elevated troponin and there were some minimal anterior EKG changes. She denied CP, SOB, N/V, diaphoresis. She denies palpitations, lightheadedness or additional symptoms prior to her fall. Her family stated that she has been exhibiting intermittent bouts of confusion which she denied. Mechanical Fall - R Displaced Radial Fx with Superior Pubic Ramus Fx: - S/P ORIF on 08/22 - PT/OT - d/c'd to [facility] - discontinued opioids for pain as patient became lethargic with use and also given unclear aggravating source for rash, decided to change to acetaminophen and tramadol, but would avoid tramadol as much as possible. Elevated Troponin and Acute VA: Anterior Infarct - Anticipate this occurred within the last 4 weeks as trops were elevated on admission and trending down - Troponins peaked at 0.794 and trending down - no complaints of CP - Atorvastatin increased to 80 mg daily - Metoprolol 12.5 mg BID - Held on ACEI given BP rather low and continue to monitor - Cardiology consulted Rash, likely allergic reaction - unknown antagonist - possibly clindamycin given perioperatively - prednisone, benedryl for d/c - no s/s of serious reaction or anaphylaxis COPD without Exacerbation with Continue Tobacco Use: - Duonebs ordered but patient's respiratory status remained stable Celiac Disease: - Gluten free diet Lung Nodules/ adrenal nodule: - CT recommending repeat in 6 months H/O Bouts of Confusion: H/O Idiopathic Hyperammonemia: - Alert and oriented during admission DVT Prophylaxis: SCDs Code Status: FULL RESUSCITATION Total Time Spent: Greater than 30 minutes This includes examination of the patient, discharge planning, medication reconciliation, and communication with other providers. Discharge Instructions Please refer to the electronic Patient Visit Report (Discharge Instructions) for additional information. Follow-Up will need cardiology F/U within the next week and anticipate F/U echo in a few months FU with ortho - patient's daughter reports this appt. was made [facility]; Pro,Doron Medellin M.D. Reviewed: Pt Seen/Exam by Me History CHELSI Supervision Note: I interviewed and examined the patient. Discussed with CHELSI Bagley and agree with findings and plan as documented in the note. Any exceptions or clarifications are listed here: Patient still having an ongoing rash that was on her back yesterday, now daughter reports his spread to the arms and legs. It is itchy. The patient denies shortness of breath or chest pain, no tongue or throat swelling, no lip swelling, otherwise pain is controlled. Medications this admission are metoprolol, clindamycin, Percocet. We decided that it could be either the clindamycin or the Percocet as most common offenders -we'll stop the Percocet on discharge and only give acetaminophen and try tramadol as needed for severe pain. Will give a prednisone taper and Benadryl for the allergic reaction and carefully watch for worsening. From a cardiac standpoint, she remains stable, no chest pain, no evidence of volume overload. Her echocardiogram showed a newly diagnosed but likely chronic systolic CHF with LVEF 35-40%. She had a borderline low normal blood pressure which prohibited adding on an MARK inhibitor and she did not need a diuretic at this time but this should be closely watched. She should have daily weights, low sodium diet, and close follow-up with cardiology. Vitals reviewed NAD, alert awake and oriented RRR, no murmurs gallops rubs Lungs with a few scattered rhonchi and wheezes, otherwise with mildly diminished breath sounds throughout Extremities-right arm in a splint to the elbow Skin diffusely coalesced erythematous maculopapular rash all over her back proximal lower extremities, and bilateral upper extremities mostly proximally, spares the face, palms, and soles Documented By: Una Falcon
== END 2017-08-26 15:00 | DRG 510 ==
LOC: EDBD 16:41 → C.EDA 16:44 → C.2T 19:49 → EDBEDREQ 19:53 → ENRESERV 20:04 → OBSVTOIN 08-21 09:48 → ENRESERV 08-23 20:45 → C.MSW 08-23 21:17
PROVIDERS: ADMIT Internal Medicine; ATTEND Internal Medicine Sports Medicine
PROC: 0PSH04Z Reposition Right Radius with Internal Fixation Device, Open Approach (ICD-10-PCS; principal; 2017-08-21 14:00)
DX: S52.571A Other intraarticular fracture of lower end of right radius, initial encounter for closed fracture (principal); I21.9 Acute myocardial infarction, unspecified; S32.511A Fracture of superior rim of right pubis, initial encounter for closed fracture; K90.0 Celiac disease; F17.200 Nicotine dependence, unspecified, uncomplicated; W19.XXXA Unspecified fall, initial encounter; J44.9 Chronic obstructive pulmonary disease, unspecified; I10 Essential (primary) hypertension; E78.5 Hyperlipidemia, unspecified; K21.9 Gastro-esophageal reflux disease without esophagitis; Z90.49 Acquired absence of other specified parts of digestive tract; Z79.82 Long term (current) use of aspirin

== ENCOUNTER → 2017-09-19 | Outpatient (CLI) | payer OTHER ==
[~2017-09-19] MED LIST changes: +ACET-1047 PO; -ASCA500; -ASPEC81; +ASPI325T45 PO; +CHOL1000 PO; -CMD3; -CMP10; +DIPH25CA5 PO; -ERGO1CAP35; +FOLI800T PO; -FOLIC ACID; +FRRG PO; -FRRS300; +IPRA1AER2 INH; +LPR25 PO; +LPT40 PO; -METR-163; +MIRT30TA3 PO; +MULT-1092 PO; -MULT-506; +OMEP40CA41 PO; -PANT40TA; -POTA20TA16; +POTA20TA16 PO; +PRD10 PO; -RMR15; -THIAMINE; +ULT50X PO; -[UNRECOGNIZED DRUG - OTHER]
[2017-09-19 11:38] LABS: BASO % 0.2 %; BASO ABS # 0.02 K/uL (0-0.2); HEMATOCRIT 37.8 % (37-47); HEMOGLOBIN 12.7 g/dL (12.0-16.0); IG# 0.03 K/uL (0.00-0.02); LYMPH % 4.3 %; LYMPH ABS # 0.56 K/uL (1.2-3.4); MEAN CELL VOLUME 97.7 fL (80-100); MEAN CORPUSCULAR HEMOGLOBIN 32.8 pg (25-34); MEAN CORPUSCULAR HGB CONC 33.6 g/dl (32-36); MEAN PLATELET VOLUME 10.3 fL (7.4-10.4); MONO % 8.7 %; MONO ABS # 1.13 K/uL (0.11-0.59); NEUT % 86.6 %; NEUT ABS # 11.26 K/uL (1.4-6.5); PLATELET COUNT 189 K/uL (130-400); RED CELL DISTRIBUTION WIDTH CV 14.9 % (11.5-14.5); RED CELL DISTRIBUTION WIDTH SD 53.4 fL (36.4-46.3)
[2017-09-19 11:53] LABS: ALBUMIN 3.2 gm/dl (3.4-5.0); ALT/SGPT 32 U/L (12-78); BLOOD UREA NITROGEN 15 mg/dl (7-18); CALCIUM 8.9 mg/dl (8.5-10.1); CARBON DIOXIDE 26 mmol/L (21-32); CREATININE 0.56 mg/dl (0.60-1.20); GLUCOSE 120 mg/dl (70-99); SODIUM 136 mmol/L (136-145)
[2017-09-19 11:56] LABS: ALKALINE PHOSPHATASE 85 U/L (45-117); AST/SGOT 34 U/L (15-37); TOTAL PROTEIN 6.7 gm/dl (6.4-8.2)
--- NOTE | 2017-09-19 11:57 | DIAGNOSTIC IMAGING REPORT ---
CHEST 2 VIEWS ROUTINE CLINICAL HISTORY: R06.02 SOB (shortness of breath)[id number] dyspnea COMPARISON STUDY: No previous studies for comparison. FINDINGS: Mild emphysematous change. Small fixed hiatal hernia. Lungs are considered clear. Minimal apical fibrotic change considered chronic radiographically. IMPRESSION: No acute process. Small hiatal hernia. Mild emphysematous change. The above report was generated using voice recognition software. It may contain grammatical, syntax or spelling errors. Electronically signed by: Tulio Li M.D. 09/19/2017 11:55 AM Dictated Date/Time: 09/19/2017 11:55 AM
[2017-09-19 13:01] LABS: INFLUENZA B PCR Neg for Influ B (NEG)
[2017-09-19 13:08] LABS: INFLUENZA A PCR POS for Influ A (NEG)
== END | disposition home or self-care (01) ==
LOC: C.RAD1850 10:42
PROVIDERS: ATTEND Physician Assistant
DX: K44.9 Diaphragmatic hernia without obstruction or gangrene (principal); R53.81 Other malaise; R53.83 Other fatigue; R06.02 Shortness of breath

== ENCOUNTER → 2017-09-25 | Outpatient (CLI) | payer OTHER | END | disposition home or self-care (01) | LOC: C.LABSPEC 07:48 | PROVIDERS: ATTEND Physician Assistant | DX: R53.81 Other malaise (principal) ==

== ENCOUNTER → 2017-10-02 | Outpatient (CLI) | payer OTHER ==
[2017-10-02 17:43] LABS: BASO % 0.9 %; BASO ABS # 0.06 K/uL (0-0.2); EOS % 2.4 %; EOS ABS # 0.17 K/uL (0-0.5); HEMATOCRIT 41.1 % (37-47); HEMOGLOBIN 13.4 g/dL (12.0-16.0); IG# 0.01 K/uL (0.00-0.02); LYMPH % 21.2 %; LYMPH ABS # 1.49 K/uL (1.2-3.4); MEAN CELL VOLUME 98.8 fL (80-100); MEAN CORPUSCULAR HEMOGLOBIN 32.2 pg (25-34); MEAN CORPUSCULAR HGB CONC 32.6 g/dl (32-36); MEAN PLATELET VOLUME 10.4 fL (7.4-10.4); MONO % 10.7 %; MONO ABS # 0.75 K/uL (0.11-0.59); NEUT % 64.7 %; NEUT ABS # 4.54 K/uL (1.4-6.5); PLATELET COUNT 398 K/uL (130-400); RED CELL DISTRIBUTION WIDTH SD 53.7 fL (36.4-46.3); WHITE BLOOD COUNT 7.02 K/uL (4.8-10.8)
[2017-10-02 18:05] LABS: ALBUMIN 3.3 gm/dl (3.4-5.0); ALKALINE PHOSPHATASE 72 U/L (45-117); ALT/SGPT 20 U/L (12-78); AST/SGOT 17 U/L (15-37); BLOOD UREA NITROGEN 22 mg/dl (7-18); CALCIUM 9.2 mg/dl (8.5-10.1); CARBON DIOXIDE 32 mmol/L (21-32); CREATININE 0.56 mg/dl (0.60-1.20); GLUCOSE 90 mg/dl (70-99); SODIUM 139 mmol/L (136-145); TOTAL PROTEIN 6.7 gm/dl (6.4-8.2)
[2017-10-03 06:51] LABS: HEMOGLOBIN A1C 5.3 % (4.5-5.6)
== END | disposition home or self-care (01) ==
LOC: C.LABBFT 14:18
PROVIDERS: ATTEND Physician Assistant
DX: E03.9 Hypothyroidism, unspecified (principal); E55.9 Vitamin D deficiency, unspecified; D64.9 Anemia, unspecified; K90.0 Celiac disease; R73.01 Impaired fasting glucose; I42.9 Cardiomyopathy, unspecified; R93.8 Abnormal findings on diagnostic imaging of other specified body structures

== ENCOUNTER → 2018-03-24 | Outpatient (CLI) | payer OTHER ==
[~2018-03-24] MED LIST changes: +ASPECOTC PO; -ASPI325T45 PO; +OPTIRAY 320 IV PRN; +POTA-639 PO; -POTA20TA16 PO
--- NOTE | 2018-03-24 08:59 | DIAGNOSTIC IMAGING REPORT ---
CT OF THE CHEST WITH IV CONTRAST CLINICAL HISTORY: COPD. Shortness of breath. Former smoker. COMPARISON STUDY: Chest CT August 20, 2017 and chest radiograph September 19, 2017. TECHNIQUE: Following IV administration of 119 mL of Optiray-320, helical axial images of the chest were obtained. Sagittal and coronal reconstructions were viewed as well as maximal intensity projections on an independent 3-D workstation. A dose lowering technique was utilized adhering to the principles of ALARA. CT DOSE: 227.74 mGy.cm FINDINGS: No enlarged axillary, mediastinal or hilar lymph nodes are present. The size the heart is normal. There is moderate mitral annular calcification. No pericardial effusion is noted. A moderate sized hiatal hernia is noted. Central airways are patent. There is no consolidation to suggest pneumonia. Moderate upper lobe predominant emphysema is noted. An 8 mm circumscribed left upper lobe nodule shown on image 122 of 311 is unchanged since exam of February 04, 2006. 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 This is benign. A 6 cm right apical nodule shown image [address] of February 04, 2006. This is benign. There are no suspicious pulmonary nodules. There is no consolidation to suggest pneumonia. Bony thorax is unremarkable. A few hepatic cysts are noted. A right adrenal adenoma is unchanged. This measures 2.1 cm. IMPRESSION: 1. No suspicious pulmonary nodules. 2. Moderate emphysema. 3. No acute intrathoracic findings. 4. 2.1 cm right adrenal adenoma. Electronically signed by: Bo Luo M.D. 03/24/2018 8:58 AM Dictated Date/Time: 03/24/2018 8:47 AM
== END | disposition home or self-care (01) ==
LOC: C.CTS 08:28
PROVIDERS: ATTEND Internal Medicine Pulmonary Disease
DX: J44.9 Chronic obstructive pulmonary disease, unspecified (principal); J43.9 Emphysema, unspecified; D35.00 Benign neoplasm of unspecified adrenal gland; Z87.891 Personal history of nicotine dependence